=== PATIENT | female | born 1960 | race Caucasian/White ===

== ENCOUNTER → 2016-05-17 | Outpatient (CLI) | payer BC ==
[~2016-05-17] VITALS: Ht 165.1 cm; Wt 139.3 kg
[~2016-05-17] MED LIST: ALBU8.5H2 IH; ASP81TEC PO; ATEN25TA; ATOR10TA66 PO; ATRV10T PO; CALC-80 PO; CATHETER FLUSH 10 ML SYR IV PRN; CPR500T PO; CYCL10TA9 PO; DILT240C PO; ESTR1TAB24 PO; FEXO1TAB42 PO; FURO20TA4 PO; FURO40TA4 PO; GABA-486 PO; GABA-488 PO; IBP600T1 PO; LEVO500T69 PO; METF-380 PO; METF500T4 PO; METO100T5 PO; METO50TA7 PO; NALT1TAB PO; NAPR-689 PO; NS IV 1000 ML 1,000 ML IV ONE; ONDANSETRON 4 MG/2 ML (SDV) Z0FRAN IV NR; OXYC-12 PO; POTA99TA7 PO; PRED20TA PO; SULF1TAB38 PO; TRAM50TA2 PO; methylPREDNISolone 125 MG (Solu-MEDROL) VIAL IV NR
--- OUTSIDE RECORDS SUMMARY | 2016-05-17 10:36 | XMS REPORT | Continuity of Care Document ---
Author Author [facility] Organization [facility] Address Unknown Phone Unavailable Care Team Providers Care Nurse Assessor Name Role Phone Olimpia Romero PCP [phone] Source Comments Some departments are not documenting in the electronic medical record. If you do not see the information that you expected, contact Release of Information in the Health Information Management department at [phone] for further assistance in locating additional records.[facility] Active Allergies and Adverse Reactions No Known Allergies Current Medications Prescription Sig. Disp. Refills Start End Date Status Date furosemide (LASIX) 20 mg Take 20 mg by mouth as Active tablet Needed. penicillin V potassium Take 550 mg by mouth as Active (VEETID) 500 mg tablet Needed. atorvastatin (LIPITOR) 10 Take 10 mg by mouth Active mg tablet daily. metFORMIN (GLUCOPHAGE) Take 500 mg by mouth Active 500 mg tablet twice daily with meals. gabapentin (NEURONTIN) Take 300 mg by mouth Active 300 mg capsule daily. CYCLOBENZAPRINE HCL Take 10 mg by mouth. Active (FLEXERIL PO) FEXOFENADINE HCL (MIGUEL Take by mouth. Active PO) levofloxacin (LEVAQUIN) Take 500 mg by mouth as Active 500 mg tablet Needed. cholecalciferol (VITAMIN Take 1,000 Units by mouth Active D-3) 1,000 units tablet daily. cyclobenzaprine Take 10 mg by mouth three Active (FLEXERIL) 10 mg tablet times daily as needed for Muscle Cramps. Active Problems No known active problems Social History Tobacco Use Types Packs/Day Years Used Date Never Assessed Last Filed Vital Signs Vital Sign Reading Time Taken Blood Pressure 156/97 04/29/2015 12:10 PM [employer] Pulse 81 04/29/2015 12:10 PM [employer] Temperature 36.9 C (98.4 F) 04/29/2015 12:10 PM [employer] Respiratory Rate 16 04/29/2015 12:10 PM [employer] Height 1.651 m (5' 5") 04/29/2015 12:10 PM [employer] Weight 139.708 kg (308 lb) 04/29/2015 12:10 PM [employer] Body Mass Index 51.25 04/29/2015 12:10 PM [employer] Oxygen Saturation 96% 04/29/2015 12:10 PM [employer] Plan of Care Health Maintenance Due Date Last Done Comments Physical (Comprehensive) 1968 Exam Pertussis Vaccine 1972 Tetanus Vaccine 1978 Cervical Cancer Screening 1982 Breast Cancer Screening 2001 Colorectal Cancer 07/05/2011 Screening Influenza Vaccine 12/18/2015 Results from Last 3 Months Not on file
[2016-05-17 11:10] LABS: MEAN PLATELET VOLUME 9.5 FL (7.4-10.4); RED BLOOD COUNT 4.71 10^6/uL (4.35-5.85); RED CELL DISTRIBUTION WIDTH 16.1 % (10.0-14.5); WHITE BLOOD COUNT 6.2 10^3/uL (4.3-11.0)
[2016-05-17 11:20] VITALS: BP 130/58
[2016-05-17 11:33] LABS: ALANINE AMINOTRANSFERASE 29 U/L (0-55); ALBUMIN 3.8 G/DL (3.2-4.5); ANION GAP 10 MMOL/L (5-14); ASPARTATE AMINO TRANSFERASE 28 U/L (5-34); BILIRUBIN,TOTAL 0.2 MG/DL (0.1-1.0); BLOOD UREA NITROGEN 11 MG/DL (7-18); BUN/CREATININE RATIO 15; CALCIUM 8.4 MG/DL (8.5-10.1); CARBON DIOXIDE 25 MMOL/L (21-32); CHLORIDE 102 MMOL/L (98-107); CREATININE SERUM 0.71 MG/DL (0.60-1.30); GFR ESTIMATED > 60; GLUCOSE 133 MG/DL (70-105); SODIUM 137 MMOL/L (135-145); TOTAL PROTEIN 6.8 G/DL (6.4-8.2)
[2016-05-17 11:39] LABS: BILIRUBIN,URINE NEGATIVE (NEGATIVE); KETONES,URINE NEGATIVE (NEGATIVE); LEUKOCYTE ESTERASE ,URINE NEGATIVE (NEGATIVE); NITRITE,URINE NEGATIVE (NEGATIVE); PH,URINE 6 (5-9); PROTEIN,URINE NEGATIVE (NEGATIVE); SQUAMOUS EPITHELIAL CELL,UR TNTC /HPF; UROBILINOGEN,URINE NORMAL (NORMAL)
[2016-05-17 12:30] VITALS: BP 130/58
== END ==
LOC: SDC 10:32
PROVIDERS: ATTEND Nurse Practitioner Family
DX: E86.0 Dehydration (principal); R50.9 Fever, unspecified; R06.2 Wheezing
CPT/HCPCS: 36415; 80053; 81000; 85027; 96365; 96367; 96374

== ENCOUNTER → 2017-01-18 | Outpatient (CLI) | payer BC ==
[~2017-01-18] MED LIST changes: -CATHETER FLUSH 10 ML SYR IV PRN; -NS IV 1000 ML 1,000 ML IV ONE; -ONDANSETRON 4 MG/2 ML (SDV) Z0FRAN IV NR; -methylPREDNISolone 125 MG (Solu-MEDROL) VIAL IV NR
== END ==
LOC: RAD 10:19
PROVIDERS: ATTEND Obstetrics & Gynecology
DX: Z12.31 Encounter for screening mammogram for malignant neoplasm of breast (principal)
CPT/HCPCS: 77067

== ENCOUNTER 2018-03-29 05:38 | Outpatient (CLI) | payer BC ==
[~2018-03-29] VITALS: Ht 166.4 cm; Wt 142.0 kg
[~2018-03-29 05:38] MED LIST changes: +METF-397 PO; -METF500T4 PO
[2018-03-29] MEDS ORDERED: FURO20TA4 PO (13:08)
[2018-03-29] MEDS ORDERED: vitafusion PO (13:08)
[2018-03-29] MEDS ORDERED: POTA99TA21 PO (13:08)
[2018-03-29] MEDS ORDERED: CALC-857 PO (13:08)
[2018-03-29] MEDS ORDERED: UBID200C16 PO (13:13)
[2018-03-29] MEDS ORDERED: META800T PO (13:13)
[2018-03-29] MEDS ORDERED: METF500T8 PO (13:13)
[2018-03-29] MEDS ORDERED: FENO135C4 PO (13:13)
[2018-03-29] MEDS ORDERED: LOSA100T8 PO (13:13)
[2018-03-29] MEDS ORDERED: GABA-488 PO (13:13)
[2018-03-29] MEDS ORDERED: MELA1TAB27 PO (13:17)
== END 2018-03-29 13:18 | disposition home or self-care (01) ==
LOC: PREOP 05:38
PROVIDERS: ATTEND Internal Medicine Interventional Cardiology
DX: Z01.818 Encounter for other preprocedural examination (principal)

== ENCOUNTER 2018-04-03 06:51 | Day surgery (SDC) | payer BC ==
[~2018-04-03] VITALS: Ht 165.1 cm; Wt 143.8 kg
[2018-04-03] VITALS (17 sets, daily range): BP systolic 114–155; BP diastolic 51–95
[~2018-04-03 06:51] MED LIST changes: +CALC-857 PO; +FENO135C4 PO; +LOSA100T8 PO; +MELA1TAB27 PO; +META800T PO; +METF500T8 PO; +POTA99TA21 PO; +UBID200C16 PO; +vitafusion PO
[2018-04-03] MEDS ORDERED: NS IV 1000 ML 1,000 ML IV SCH (06:57)
[2018-04-03] MEDS ORDERED: ISOPROTERENOL 0.2 MG/100 ML D5W IV ONE (07:00)
[2018-04-03] MEDS ORDERED: CEPH-507 PO (07:15)
[2018-04-03] MEDS ORDERED: proPOfol 200 MG/20 ML (DIPRIVAN) VIAL IV ONE (07:15)
[2018-04-03] MEDS ORDERED: NAPR-1071 PO (07:15)
[2018-04-03] MEDS ORDERED: fentaNYL INJECTION 100 MCG/2 ML AMP ONE (07:16)
[2018-04-03] MEDS ORDERED: MIDAZOLAM 2 MG/2 ML (VERSED) VIAL ONE (07:16)
[2018-04-03] MEDS ORDERED: LIDOCAINE 2% 20 ML (XYLOCAINE) VIAL ONE (07:17)
[2018-04-03] MEDS ORDERED: ONDANSETRON 4 MG/2 ML (SDV) Z0FRAN ONE (07:17)
[2018-04-03] MEDS ORDERED: SUCCINYLCHOLINE INJ 100 MG/5 ML SYR ONE (07:17)
--- OUTSIDE RECORDS SUMMARY | 2018-04-03 07:22 | XMS REPORT | Clinical Summary ---
Author Author [facility] Organization [facility] Address Unknown Phone Unavailable Care Team Providers Care Jackscrew Man Name Role Phone Soledad Romero MD PCP Yobani Ashby MD Unavailable Unavailable Source Comments Some departments are not documenting in the electronic medical record. If you do not see the information that you expected, contact Release of Information in the Health Information Management department at [phone] for further assistance in locating additional records.[facility] Allergies No Known Allergies Medications End Date Status Medication Sig Dispensed Refills Start Date Active furosemide (LASIX) 20 mg Take 20 mg by 0 tablet mouth as Needed. Active penicillin V potassium Take 550 mg 0 (VEETID) 500 mg tablet by mouth as Needed. Active atorvastatin (LIPITOR) 10 Take 10 mg by 0 mg tablet mouth daily. Active metFORMIN (GLUCOPHAGE) Take 500 mg 0 500 mg tablet by mouth twice daily with meals. Active gabapentin (NEURONTIN) Take 300 mg 0 300 mg capsule by mouth daily. Active CYCLOBENZAPRINE HCL Take 10 mg by 0 (FLEXERIL PO) mouth. Active FEXOFENADINE HCL (MIGUEL Take by 0 PO) mouth. Active levofloxacin (LEVAQUIN) Take 500 mg 0 500 mg tablet by mouth as Needed. Active cholecalciferol (VITAMIN Take 1,000 0 D-3) 1,000 units tablet Units by mouth daily. Active cyclobenzaprine Take 10 mg by 0 (FLEXERIL) 10 mg tablet mouth three times daily as needed for Muscle Cramps. Active Problems No known active problems Social History Date Tobacco Use Types Packs/Day Years Used Never Assessed Sex Assigned at Date Recorded Not on file Industry Job Start Date Occupation Not on file Not on file Not on file Travel End Travel History Travel Start No recent travel history available. Last Filed Vital Signs Time Taken Vital Sign Reading 04/29/2015 12:10 PM [employer] Blood Pressure 156/97 04/29/2015 12:10 PM [employer] Pulse 81 04/29/2015 12:10 PM [employer] Temperature 36.9 C (98.4 F) 04/29/2015 12:10 PM [employer] Respiratory Rate 16 04/29/2015 12:10 PM [employer] Oxygen Saturation 96% - Inhaled Oxygen - Concentration 04/29/2015 12:10 PM [employer] Weight 139.7 kg (308 lb) 04/29/2015 12:10 PM [employer] Height 165.1 cm (5' 5") 04/29/2015 12:10 PM [employer] Body Mass Index 51.25 Plan of Treatment Health Maintenance Due Date Last Done Comments HEPATITIS C SCREENING 1961 PHYSICAL (COMPREHENSIVE) 1968 EXAM HIV SCREENING 1976 DTAP/TDAP VACCINES (1 - 07/05/1979 Tdap) CERVICAL CANCER SCREENING 07/05/1991 BREAST CANCER SCREENING 2001 COLORECTAL CANCER 07/05/2011 SCREENING SHINGLES RECOMBINANT 07/05/2011 VACCINE (1 of 2) INFLUENZA VACCINE 11/16/2017 Results Not on filefrom Last 3 Months Insurance Payer Benefit Subscriber ID Type Phone Address Plan / Group [facility] xxxxxxxxxxxx [facility] Advance Directives Patient has advance care planning documents on file. For more information, please contact: [facility] [address] [place] [address]
[2018-04-03] MEDS ORDERED: LORA10TA72 PO (07:25)
[2018-04-03] MEDS ORDERED: LEVO500T80 PO (07:25)
--- OUTSIDE RECORDS SUMMARY | 2018-04-03 07:25 | XMS REPORT | CCD ---
Author Author [facility] Organization [facility] Address [address] [place] [address] Phone Care Team Providers Care Industrial Relations Specialist Name Role Phone PP Unavailable CCM Unavailable Summary Purpose Interface Exchange Insurance Providers Payer name Policy type / Coverage type Covered libertarian ID Effective Begin Date Effective End Date Blue Cross Blue [facility] Blue Cross/Blue Shield [id number] Unknown Family history Father Diagnosis Age At Onset Stroke Unknown Osteoporosis Unknown Hypertension Unknown Hyperlipidemia Unknown Son Diagnosis Age At Onset defect Unknown Asthma Unknown Mother Diagnosis Age At Onset Stroke Unknown Hypertension Unknown Diabetes Unknown Osteoporosis Unknown Social History Social History Element Codes Description Effective Dates Marital status Unknown Alex 06/29/2016 Number of children Unknown 3 10/03/[address]: 23439492 Current every day smoker 10/03/2014 Number of years using tobacco Unknown 30 - 40 10/03/2014 Number of cigarettes/day Unknown 30 ( Pack and a half) 10/03/[address]: 596843934 Never drinks alcohol 10/03/2014 Allergies, Adverse Reactions, Alerts Substance Reaction Codes Entered Date Inactivated Date Status * OTHER REACTION - SEE ANSWER BOX Unknown 06/29/2016 No Inactive Date Active NO KNOWN DRUG ALLERGIES Unknown 10/03/2014 No Inactive Date Active Past Medical History Illness Codes Condition Status Onset Date Resolved Date Dysuria ICD-9: 788.1 ICD-10: R30.0 Active 12/24/2016 Unknown Essential (primary) hypertension ICD-9: 401.9 ICD-10: I10 Active 04/26/2016 Unknown Mixed hyperlipidemia ICD-9: 272.2 ICD-10: E78.2 Active 02/02/2018 Unknown Morbid (severe) obesity due to excess calories ICD-9: 278.01 ICD-10: E66.01 Active 04/26/2016 Unknown Muscle spasm of back ICD-9: 724.8 ICD-10: M62.830 Active 09/20/2017 Unknown Palpitations ICD-9: 785.1 ICD-10: R00.2 Active 01/24/2017 Unknown Type 2 diabetes mellitus with hyperglycemia ICD-9: 250.00 ICD-10: E11.65 Active 04/26/2016 Unknown Abscess of left lower eyelid ICD-9: 373.13 ICD-10: H00.035 Active 01/11/2018 Unknown Localized edema ICD-9 : 782.3 ICD-10: R60.0 Active 01/11/2018 Unknown Other insomnia ICD-9: 327.09 ICD-10: G47.09 Active 01/11/2018 Unknown Radiculopathy, cervicothoracic region ICD-9: 723.1 ICD-10: M54.13 Active 09/08/2015 Unknown Tobacco use ICD-9: 305.1 ICD-10: Z72.0 Active 09/08/2015 Unknown Dyshidrosis [pompholyx] ICD-9: 705.81 ICD-10: L30.1 Active 11/23/2016 Unknown Rash and other nonspecific skin eruption ICD-9: 782.1 ICD-10: R21 Active 09/08/2015 Unknown Acute laryngopharyngitis ICD-9: 465.0 ICD-10: J06.0 Active 03/17/2016 Unknown Myalgia ICD-9: 729.1 ICD-10: M79.1 Active 06/07/2016 Unknown Other allergic rhinitis ICD-9: 477.8 ICD-10: J30.89 Active 05/17/2016 Unknown Other acute sinusitis ICD-9: 461.8 ICD-10: J01.80 Active 05/17/2016 Unknown Other muscle spasm ICD -9: 728.85 ICD-10: M62.838 Active 04/26/2016 Unknown Cough ICD-9: 786.2 ICD-10: R05 Active 03/17/2016 Unknown Spinal stenosis, lumbar region ICD-9: 724.02 ICD-10: M48.06 Active 09/08/2015 Unknown Shortness of breath ICD-9: 786.05 ICD-10: R06.02 Active 09/03/2015 Unknown Wheezing ICD-9: 786.07 ICD-10: R06.2 Active 09/03/2015 Unknown Diabetes Unknown Active 12/31/2014 Unknown Hypertension Unknown Active 12/31/2014 Unknown Abdominal cramping ICD -9: 789.00 Active 12/30/2014 Unknown DIABETES TYPE II ICD-9 : 250.00 Active 12/30/2014 Unknown ESSENTIAL HYPERTENSION ICD-9: 401.9 Active 12/30/2014 Unknown Muscle spasms of neck ICD-9: 728.85 Active 12/30/2014 Unknown Neck pain ICD-9: 723.1 Active 12/30/2014 Unknown Routine medical exam ICD-9: V70.0 Active 10/02/2014 Unknown Problems Condition Codes Effective Dates Condition Status Dysuria ICD-9: 788.1 ICD-10: R30.0 12/24/2016 Active Essential (primary) hypertension ICD-9: 401.9 ICD-10: I10 04/26/2016 Active Mixed hyperlipidemia ICD-9: 272.2 ICD-10: E78.2 02/02/2018 Active Morbid (severe) obesity due to excess calories ICD-9: 278.01 ICD-10: E66.01 04/26/2016 Active Muscle spasm of back ICD-9: 724.8 ICD-10: M62.830 09/20/2017 Active Palpitations ICD-9: 785.1 ICD-10: R00.2 01/24/2017 Active Type 2 diabetes mellitus with hyperglycemia ICD-9: 250.00 ICD-10: E11.65 04/26/2016 Active Abscess of left lower eyelid ICD-9: 373.13 ICD-10: H00.035 01/11/2018 Active Localized edema ICD-9 : 782.3 ICD-10: R60.0 01/11/2018 Active Other insomnia ICD-9: 327.09 ICD-10: G47.09 01/11/2018 Active Radiculopathy, cervicothoracic region ICD-9: 723.1 ICD-10: M54.13 09/08/2015 Active Tobacco use ICD-9: 305.1 ICD-10: Z72.0 09/08/2015 Active Dyshidrosis [pompholyx] ICD-9: 705.81 ICD-10: L30.1 11/23/2016 Active Rash and other nonspecific skin eruption ICD-9: 782.1 ICD-10: R21 09/08/2015 Active Acute laryngopharyngitis ICD-9: 465.0 ICD-10: J06.0 03/17/2016 Active Myalgia ICD-9: 729.1 ICD-10: M79.1 06/07/2016 Active Other allergic rhinitis ICD-9: 477.8 ICD-10: J30.89 05/17/2016 Active Other acute sinusitis ICD-9: 461.8 ICD-10: J01.80 05/17/2016 Active Other muscle spasm ICD -9: 728.85 ICD-10: M62.838 04/26/2016 Active Cough ICD-9: 786.2 ICD-10: R05 03/17/2016 Active Spinal stenosis, lumbar region ICD-9: 724.02 ICD-10: M48.06 09/08/2015 Active Shortness of breath ICD-9: 786.05 ICD-10: R06.02 09/03/2015 Active Wheezing ICD-9: 786.07 ICD-10: R06.2 09/03/2015 Active Diabetes Unknown 12/31/2014 Active Hypertension Unknown 12/31/2014 Active Abdominal cramping ICD -9: 789.00 12/30/2014 Active DIABETES TYPE II ICD-9 : 250.00 12/30/2014 Active ESSENTIAL HYPERTENSION ICD-9: 401.9 12/30/2014 Active Muscle spasms of neck ICD-9: 728.85 12/30/2014 Active Neck pain ICD-9: 723.1 12/30/2014 Active Routine medical exam ICD-9: V70.0 10/02/2014 Active Medications Medication Codes Instructions Start Date Stop Date Status Fill Instructions Keflex 500 mg capsule RxNorm: 352224 1 Capsule(s) PO TID 201704/06/2018 Active Keflex 500 mg capsule RxNorm: 511820 1 Capsule(s) PO TID 201703/30/2018 Inactive metformin ER 500 mg tablet,extended release 24 hr RxNorm: 998692 4 Tablet(s) PO daily 02/02/2018 08/30/2018 Active Trilipix 135 mg capsule,delayed release RxNorm: 060656 1 Capsule(s) PO daily 02/02/2018 08/30/2018 Active losartan 100 mg tablet RxNorm: 941748 1 Tablet(s) PO daily TAKE 1 TABLET BY MOUTH DAILY 02/02/2018 07/31/2018 Active Skelaxin 800 mg tablet RxNorm: 500728 1 Tablet(s) PO TID 201706/01/2018 Active metformin ER 1,000 mg tablet,extended release 24hr RxNorm: 8547937 2 Tablet(s) PO daily 02/02/2018 02/01/2018 Inactive Levaquin 500 mg tablet RxNorm: 579807 1 Tablet(s) PO daily 01/19/2018 Inactive valacyclovir 1 gram tablet RxNorm: 911970 1 Tablet(s) PO TID 01/17/2018 Inactive furosemide 20 mg tablet RxNorm: 154516 TABLET(S) 1 TABLET(S) PO DAILY 12/08/2017 04/06/2018 Active losartan 50 mg tablet RxNorm: 532221 1 Tablet(s) PO daily TAKE 1 TABLET BY MOUTH DAILY 09/26/2017 02/01/2018 Inactive Skelaxin 800 mg tablet RxNorm: 298846 1 Tablet(s) PO TID 201710/19/2017 Inactive gabapentin 300 mg capsule RxNorm: 852687 1 Capsule(s) PO BID 10/15/2017 Inactive losartan 25 mg tablet RxNorm: 651578 TAKE 1 TABLET BY MOUTH DAILY 09/16/2017 09/25/2017 Inactive naproxen 500 mg tablet RxNorm: 713048 1 TABLET(S) PO BID 201711/21/2017 Inactive Tamiflu 75 mg capsule RxNorm: 121277 1 Capsule(s) PO BID 201706/26/2017 Inactive Levaquin 500 mg tablet RxNorm: 304956 1 Tablet(s) PO daily 03/201806/26/2017 Inactive Tamiflu 75 mg capsule RxNorm: 309597 1 Capsule(s) PO BID 201707/01/2017 Inactive Levaquin 500 mg tablet RxNorm: 082258 1 Tablet(s) PO daily 03/201807/03/2017 Inactive Keflex 500 mg capsule RxNorm: 498840 1 Capsule(s) PO TID 201612/30/2016 Inactive Keflex 500 mg capsule RxNorm: 619314 1 Capsule(s) PO TID 201612/23/2016 Inactive Trilipix 135 mg capsule,delayed release RxNorm: 381369 1 Capsule(s) PO daily 12/24/2016 03/23/2017 Inactive Trilipix 135 mg capsule,delayed release RxNorm: 823624 1 Capsule(s) PO daily 12/24/2016 12/23/2016 Inactive losartan 25 mg tablet RxNorm: 746078 2 Tablet(s) daily 201601/25/2017 Inactive metformin ER 1,000 mg tablet,extended release 24hr RxNorm: 3709244 1 Tablet(s) PO daily 12/13/2016 07/10/2017 Inactive furosemide 20 mg tablet RxNorm: 441004 TABLET(S) 1 TABLET(S) PO DAILY 12/03/2016 04/01/2017 Inactive triamcinolone acetonide 0.025 % topical cream RxNorm: 8244784 1 Application TOP BID 11/23/2016 No Stop Date Active losartan 25 mg tablet RxNorm: 784481 TAKE 1 TABLET BY MOUTH DAILY 11/09/2016 12/12/2016 Inactive metformin 500 mg tablet RxNorm: 530051 3 Tablet(s) PO UD 1 in the morning and two pills at night. 08/17/2016 12/12/2016 Inactive naproxen 500 mg tablet RxNorm: 038554 1 Tablet(s) PO BID 201611/29/2016 Inactive Keflex 500 mg capsule RxNorm: 689456 1 Capsule(s) PO BID 201606/16/2016 Inactive prednisone 10 mg tablet RxNorm: 828860 1 Tablet(s) PO UD 201611/18/2016 Inactive 6,5,4,3,2,1 albuterol sulfate 2.5 mg/3 mL (0.083 %) solution for nebulization RxNorm: 412682 3 Milliliter(s) INH Q4-6H as needed 05/19/2016 11/17/2016 Inactive Augmentin 500 mg-125 mg tablet RxNorm: 883419 1 Tablet(s) PO TID 05/17/2016 05/26/2016 Inactive hydrocodone 5 mg-acetaminophen 325 mg tablet RxNorm: 606525 Tablet(s) PO prescribed by ortho 04/19/2016 01/19/2017 Inactive furosemide 20 mg tablet RxNorm: 986736 Tablet(s) 1 TABLET(S) PO DAILY 03/24/2016 07/21/2016 Inactive metformin 500 mg tablet RxNorm: 833516 1 Tablet(s) PO BID 03/2407/21/2016 Inactive levofloxacin 500 mg tablet RxNorm: 483871 1 Tablet(s) PO daily 03/18/2016 05/03/2016 Inactive furosemide 20 mg tablet RxNorm: 976269 1 TABLET(S) PO DAILY 03/23/2016 Inactive Lipitor 10 mg tablet RxNorm: 005853 1 TABLET(S) PO QPM 201512/12/2016 Inactive betamethasone dipropionate 0.05 % topical cream RxNorm: 460939 1 Application TOP BID 09/09/2015 01/21/2017 Inactive prednisone 10 mg tablet RxNorm: 963750 Tablet(s) PO UD 201505/03/2016 Inactive 6,5,4,3,2,1 albuterol sulfate 2.5 mg/3 mL (0.083 %) solution for nebulization RxNorm: 792619 3 Milliliter(s) INH Q4-6H as needed 09/04/2015 05/18/2016 Inactive Kenalog 40 mg/mL suspension for injection RxNorm: 9980603 Milliliter(s) Inj 09/04/2015 09/04/2015 Inactive levofloxacin 500 mg tablet RxNorm: 337913 1 Tablet(s) PO daily 09/01/2015 03/17/2016 Inactive gabapentin 300 mg capsule RxNorm: 318226 1 Capsule(s) PO BID 09/15/2017 Inactive losartan 25 mg tablet RxNorm: 336716 1 Tablet(s) PO daily 201502/02/2016 Inactive Lipitor 10 mg tablet RxNorm: 834092 1 Tablet(s) PO QPM 201508/22/2015 Inactive furosemide 20 mg tablet RxNorm: 494692 1 Tablet(s) PO daily 04/201407/15/2015 Inactive metformin 500 mg tablet RxNorm: 868519 2 Tablet(s) PO BID 12/3104/29/2015 Inactive gabapentin 300 mg capsule RxNorm: 164425 1 Capsule(s) PO QHS 07/09/2015 Inactive Lipitor 10 mg tablet RxNorm: 809495 1 Tablet(s) PO QPM 201412/03/2014 Inactive metformin 500 mg tablet RxNorm: 577383 1/2 Tablet(s) PO QPM x1 week and then 1/2 tab bid x 1 week then 500mg 1 tab bid there after 12/04/2014 12/03/2014 Inactive metformin 500 mg tablet RxNorm: 077512 1/2 Tablet(s) PO QPM x1 week and then 1/2 tab bid x 1 week then 500mg 1 tab bid there after 12/04/2014 12/30/2014 Inactive Lipitor 10 mg tablet RxNorm: 054239 1 Tablet(s) PO QPM 201401/02/2015 Inactive ProAir HFA 90 mcg/actuation aerosol inhaler RxNorm: 5707250 INH as needed No Start Date Active coenzyme Q10 100 mg capsule RxNorm: 460211 1 Capsule(s) PO daily No Start Date Active Calcium RxNorm: 1 PO daily No Start Date Active melatonin 5 mg chewable tablet RxNorm: 8198058 2 Tablet(s) PO QHS No Start Date Active multivitamin with calcium carb and iron tablet RxNorm: 1 Tablet(s) PO daily No Start Date Active Shantelle-D 24 Hour oral RxNorm: 071522 oral No Start Date Active Refresh Dry Eye Therapy RxNorm: 083159 ophthalmic (eye) No Start Date Active gabapentin 300 mg capsule RxNorm: 129686 1 Capsule(s) PO daily No Start Date Active triamcinolone acetonide 0.025 % topical cream RxNorm: 6439855 1 Application TOP ordered by dermatolgy No Start Date Active naproxen 500 mg tablet RxNorm: 023061 1 Tablet(s) PO BID as needed No Start Date Active multivitamin capsule RxNorm: 1 Capsule(s) PO daily No Start Date Active amlodipine 5 mg tablet RxNorm: 127721 1 Tablet(s) PO daily No Start Date 12/12/2016 Inactive tramadol 50 mg tablet RxNorm: 144434 1 Tablet(s) PO Q4 PRN No Start Date 03/11/2015 Inactive naproxen 500 mg tablet RxNorm: 528792 1 Tablet(s) PO BID No Start Date 08/01/2016 Inactive clotrimazole-betamethasone 1 %-0.05 % topical cream RxNorm: 961567 1 Application TOP ordered by chief engineer waterworks No Start Date 01/17/2018 Inactive baclofen 10 mg tablet RxNorm: 762388 1 Tablet(s) PO TID as needed muscle spasms No Start Date 01/16/2018 Inactive furosemide 20 mg tablet RxNorm: 716624 1 Tablet(s) PO daily No Start Date 03/17/2015 Inactive cyclobenzaprine 10 mg tablet RxNorm: 862203 1 Tablet(s) PO Q8 PRN No Start Date 07/09/2015 Inactive levofloxacin 500 mg tablet RxNorm: 739942 1 Tablet(s) PO daily No Start Date 12/30/2014 Inactive gabapentin 100 mg capsule RxNorm: 662680 1 Capsule(s) PO TID No Start Date 12/30/2014 Inactive potassium gluconate 550 mg (90 mg) tablet RxNorm: 6383685 oral No Start Date 12/12/2016 Inactive Vesicare 5 mg tablet RxNorm: 941466 1 Tablet(s) PO daily prescribed by Dr. Rm No Start Date 01/16/2018 Inactive Medication Administered Medication Codes Instructions Start Date Status Kenalog 40 mg/mL suspension for injection RxNorm: 4355074 Milliliter 09/04/2015 No longer Active Immunizations No Immunization data Assessments Condition Codes Effective Dates Dysuria ICD-10: R30.0 ICD-9: 788.1 03/31/2018 Muscle spasm of back ICD-10: M62.830 ICD-9: 724.8 02/02/2018 Essential (primary) hypertension ICD-10: I10 ICD-9: 401.9 02/02/2018 Morbid (severe) obesity due to excess calories ICD-10: E66.01 ICD-9: 278.01 02/02/2018 Type 2 diabetes mellitus with hyperglycemia ICD-10: E11.65 ICD-9: 250.00 02/02/2018 Mixed hyperlipidemia ICD-10: E78.2 ICD-9: 272.2 02/02/2018 Palpitations ICD-10: R00.2 ICD-9: 785.1 02/02/2018 Abscess of left lower eyelid ICD-10: H00.035 ICD-9: 373.13 01/11/2018 Other insomnia ICD-10: G47.09 ICD-9: 327.09 01/11/2018 Localized edema ICD-10: R60.0 ICD-9: 782.3 01/11/2018 Radiculopathy, cervicothoracic region ICD-10: M54.13 ICD-9: 723.1 09/20/2017 Rash and other nonspecific skin eruption ICD-10: R21 ICD-9: 782.1 11/23/2016 Dyshidrosis [pompholyx] ICD-10: L30.1 ICD-9: 705.81 11/23/2016 Tobacco use ICD-10: Z72.0 ICD-9: 305.1 06/29/2016 Myalgia ICD-10: M79.1 ICD-9: 729.1 06/07/2016 Acute laryngopharyngitis ICD-10: J06.0 ICD-9: 465.0 06/07/2016 Other allergic rhinitis ICD-10: J30.89 ICD-9: 477.8 06/07/2016 Other acute sinusitis ICD-10: J01.80 ICD-9: 461.8 05/17/2016 Other muscle spasm ICD-10: M62.838 ICD-9: 728.85 04/27/2016 Cough ICD-10: R05 ICD-9: 786.2 03/18/2016 Spinal stenosis, lumbar region ICD-10: M48.06 ICD-9: 724.02 09/09/2015 Shortness of breath ICD-10: R06.02 ICD-9: 786.05 09/04/2015 Wheezing ICD-10: R06.2 ICD-9: 786.07 09/04/2015 DIABETES TYPE II ICD-9: 250.00 2014 ESSENTIAL HYPERTENSION ICD-9: 401.9 12/31 Neck pain ICD-9: 723.1 12/31/2014 Muscle spasms of neck ICD-9: 728.85 12/31 Abdominal cramping ICD-9: 789.00 2014 Routine medical exam ICD-9: V70.0 2014 Reason For Visit Reason For Visit Effective Dates Notes hypertension 02/02/2018 sores 01/11/2018 hypertension 09/20/2017 medication follow up 01/24/2017 hypertension 12/13/2016 skin lesion 11/23/2016 hypertension 08/17/2016 hypertension 06/29/2016 sinus congestion 06/07/2016 sinus congestion 05/17/2016 fatigue 04/27/2016 cough 03/18/2016 back pain 09/09/2015 cough 09/04/2015 back pain 07/08/2015 back pain 05/19/2015 back pain 03/31/2015 back pain 02/03/2015 back pain 12/31/2014 back pain 10/03/2014 Results Observation Observation Code Item Item Code Result Date Comp Metabolic Oxk680 NA 138 mEq/L 03/31/2018 Comp Metabolic Ocg710 K 4.2 mEq/L 03/31/2018 Comp Metabolic Pap090 CL 99 mEq/L 03/31/2018 Comp Metabolic Qbm756 CO2 30.0 mEq/L 03/31/2018 Comp Metabolic Zwm870 ANION GAP 13 03/31/2018 Comp Metabolic Gwr164 GLUCOSE 142 mg/dL 03/31/2018 Comp Metabolic Tkq108 Creat 0.6 mg/dL 03/31/2018 Comp Metabolic Pdv314 eGFR 119 ml/min/1.73m2 03/31/2018 Comp Metabolic Hvr078 BUN 12 mg/dL 03/31/2018 Comp Metabolic Iyi721 B/C Ratio 21.4 Ratio 03/31/2018 Comp Metabolic Ohc682 CALCIUM 9.3 mg/dL 03/31/2018 Comp Metabolic Azj627 ALK PHOS 123 U/L 03/31/2018 Comp Metabolic Qns519 AST(SGOT) 26 U/L 03/31/2018 Comp Metabolic Eav844 ALT(SGPT) 26 U/L 03/31/2018 Comp Metabolic Pkz875 BILI T 0.4 mg/dL 03/31/2018 Comp Metabolic Xrq914 ALBUMIN 3.9 g/dL 03/31/2018 Comp Metabolic Gnx875 TPRO 7.0 g/dL 03/31/2018 Comp Metabolic Snc741 GLOB 3.1 g/dL 03/31/2018 Comp Metabolic Wsp537 A/G Ratio 1.3 Ratio 03/31/2018 Comp Metabolic Eta602 Osmo 278 mOsmo 03/31/2018 Microalbumin Qax918 MicroAlb 6.2 mg/dL 03/31/2018 Cbc With Differential Ord2 WBC 11.64 K/ul 03/31/2018 Cbc With Differential Ord2 RBC 5.16 M/ul 03/31/2018 Cbc With Differential Ord2 HGB 15.0 g/dl 03/31/2018 Cbc With Differential Ord2 HCT 45.0 % 03/31/2018 Cbc With Differential Ord2 Neut% 60.2 % 03/31/2018 Cbc With Differential Ord2 MCV 87.2 fl 03/31/2018 Cbc With Differential Ord2 Lymph% 31.5 % 03/31/2018 Cbc With Differential Ord2 MCH 29.1 pg 03/31/2018 Cbc With Differential Ord2 Hill% 7.0 % 03/31/2018 Cbc With Differential Ord2 MCHC 33.3 pg 03/31/2018 Cbc With Differential Ord2 Eos% 1.1 % 03/31/2018 Cbc With Differential Ord2 Baso% 0.2 % 03/31/2018 Cbc With Differential Ord2 PLT 363 K/ul 03/31/2018 Cbc With Differential Ord2 RDW 15.0 % 03/31/2018 Cbc With Differential Ord2 Neut ABS# 7.01 K/ul 03/31/2018 Cbc With Differential Ord2 Lymph ABS# 3.67 K/ul 03/31/2018 Cbc With Differential Ord2 Hill ABS# 0.8 K/ul 03/31/2018 Cbc With Differential Ord2 Eos ABS# 0.1 K/ul 03/31/2018 Cbc With Differential Ord2 Baso ABS# 0.0 K/ul 03/31/2018 %Hba1C Weq909 % HbA1c 90771-0 7.9 % 03/31/2018 %Hba1C Alk769 Gluc Ave 180 mg/dL 03/31/2018 Lipid Ord30 CHOL 154 mg/dL 03/31/2018 Lipid Ord30 HDL 38.0 mg/dl 03/31/2018 Lipid Ord30 TRIG 199 mg/dL 03/31/2018 Lipid Ord30 LDL 76 mg/dL 03/31/2018 Lipid Ord30 C/HDL 4.1 Ratio 03/31/2018 Tsh Ord6 TSH (3rd IS) 1.80 uIU/mL 03/31/2018 Urinalysis Ord28 U-Color Yellow 03/31/2018 Urinalysis Ord28 U-Clarity Cloudy 03/31/2018 Urinalysis Ord28 U-Gluc Negative 03/31/2018 Urinalysis Ord28 U-Bili Negative 03/31/2018 Urinalysis Ord28 U-Ketone Negative 03/31/2018 Urinalysis Ord28 U-SG 1.015 03/31/2018 Urinalysis Ord28 U-Blood Small 03/31/2018 Urinalysis Ord28 U-pH 6.5 03/31/2018 Urinalysis Ord28 U-Protein Negative 03/31/2018 Urinalysis Ord28 U-Urobilin 0.2 E.U./dL E.U./dL 03/31/2018 Urinalysis Ord28 U-Nitrites Positive 03/31/2018 Urinalysis Ord28 U-Leuk Moderate 03/31/2018 Urinalysis Ord28 U-Bact 3+ 03/31/2018 Urinalysis Ord28 U-Squamous Epi 5-10 per/HPF 03/31/2018 Urinalysis Ord28 U-Crystal None per/HPF 03/31/2018 Urinalysis Ord28 U-Mucus None 03/31/2018 Urinalysis Ord28 U-Renal tubular epi None 03/31/2018 Urinalysis Ord28 U-RBC 5-10 per/HPF 03/31/2018 Urinalysis Ord28 U-Transitional epi None per/HPF 03/31/2018 Urinalysis Ord28 U-WBC 50-60 per/HPF 03/31/2018 Urinalysis Ord28 U-Cast None per/HPF 03/31/2018 Urinalysis Ord28 U-VOL VOLUME SUFFICIENT (10mL) 03/31/2018 Urinalysis Ord28 U-Com Culture to follow 03/31/2018 Urinalysis Ord28 U-Yeast NEGATIVE 03/31/2018 %Hba1C Tik009 % HbA1c 94531-3 7.8 % 12/14/2016 %Hba1C Nub365 Gluc Ave 177 mg/dL 12/14/2016 Microalbumin Lwz990 MicroAlb 2.4 mg/dL 12/14/2016 Lipid Ord30 CHOL 156 mg/dL 12/14/2016 Lipid Ord30 HDL 37.0 mg/dl 12/14/2016 Lipid Ord30 TRIG 257 mg/dL 12/14/2016 Lipid Ord30 LDL 68 mg/dL 12/14/2016 Lipid Ord30 C/HDL 4.2 Ratio 12/14/2016 Cbc With Differential Ord2 WBC 11.71 K/ul 12/14/2016 Cbc With Differential Ord2 RBC 4.87 M/ul 12/14/2016 Cbc With Differential Ord2 HGB 14.4 g/dl 12/14/2016 Cbc With Differential Ord2 Neut% 59.0 % 12/14/2016 Cbc With Differential Ord2 HCT 42.8 % 12/14/2016 Cbc With Differential Ord2 Lymph% 33.1 % 12/14/2016 Cbc With Differential Ord2 MCV 87.9 fl 12/14/2016 Cbc With Differential Ord2 MCH 29.6 pg 12/14/2016 Cbc With Differential Ord2 Hill% 6.5 % 12/14/2016 Cbc With Differential Ord2 MCHC 33.6 pg 12/14/2016 Cbc With Differential Ord2 Eos% 1.2 % 12/14/2016 Cbc With Differential Ord2 PLT 306 K/ul 12/14/2016 Cbc With Differential Ord2 Baso% 0.2 % 12/14/2016 Cbc With Differential Ord2 RDW 15.3 % 12/14/2016 Cbc With Differential Ord2 Neut ABS# 6.91 K/ul 12/14/2016 Cbc With Differential Ord2 Lymph ABS# 3.88 K/ul 12/14/2016 Cbc With Differential Ord2 Hill ABS# 0.8 K/ul 12/14/2016 Cbc With Differential Ord2 Eos ABS# 0.1 K/ul 12/14/2016 Cbc With Differential Ord2 Baso ABS# 0.0 K/ul 12/14/2016 Tsh Ord6 hTSH II 2.18 uIU/mL 12/14/2016 Comp Metabolic Glj026 NA 139 mEq/L 12/14/2016 Comp Metabolic Mhr012 K 4.2 mEq/L 12/14/2016 Comp Metabolic Ynl543 CL 102 mEq/L 12/14/2016 Comp Metabolic Ibx609 CO2 25.0 mEq/L 12/14/2016 Comp Metabolic Ajw701 ANION GAP 16 12/14/2016 Comp Metabolic Cvv611 GLUCOSE 150 mg/dL 12/14/2016 Comp Metabolic Sxp231 Creat 0.5 mg/dL 12/14/2016 Comp Metabolic Cjz837 eGFR 124 ml/min/1.73m2 12/14/2016 Comp Metabolic Qfs476 BUN 14 mg/dL 12/14/2016 Comp Metabolic Uvy551 B/C Ratio 25.9 Ratio 12/14/2016 Comp Metabolic Itx966 CALCIUM 9.2 mg/dL 12/14/2016 Comp Metabolic Lvy505 ALK PHOS 121 U/L 12/14/2016 Comp Metabolic Lkp804 AST(SGOT) 20 U/L 12/14/2016 Comp Metabolic Lxz901 ALT(SGPT) 22 U/L 12/14/2016 Comp Metabolic Rix062 BILI T 0.3 mg/dL 12/14/2016 Comp Metabolic Gsq490 ALBUMIN 3.9 g/dL 12/14/2016 Comp Metabolic Pho675 TPRO 6.8 g/dL 12/14/2016 Comp Metabolic Gop183 GLOB 2.9 g/dL 12/14/2016 Comp Metabolic Odm991 A/G Ratio 1.3 Ratio 12/14/2016 Comp Metabolic Tdn398 Osmo 281 mOsmo 12/14/2016 Sed Rate Ord21 ESR 9 mm/hr 04/28/2016 Cbc With Differential Ord2 WBC 11.44 K/ul 04/27/2016 Cbc With Differential Ord2 RBC 4.78 M/ul 04/27/2016 Cbc With Differential Ord2 HGB 13.9 g/dl 04/27/2016 Cbc With Differential Ord2 HCT 41.6 % 04/27/2016 Cbc With Differential Ord2 Neut% 58.9 % 04/27/2016 Cbc With Differential Ord2 MCV 87.0 fl 04/27/2016 Cbc With Differential Ord2 Lymph% 34.4 % 04/27/2016 Cbc With Differential Ord2 MCH 29.1 pg 04/27/2016 Cbc With Differential Ord2 Hill% 5.3 % 04/27/2016 Cbc With Differential Ord2 MCHC 33.4 pg 04/27/2016 Cbc With Differential Ord2 Eos% 1.2 % 04/27/2016 Cbc With Differential Ord2 PLT 301 K/ul 04/27/2016 Cbc With Differential Ord2 Baso% 0.2 % 04/27/2016 Cbc With Differential Ord2 RDW 16.4 % 04/27/2016 Cbc With Differential Ord2 Neut ABS# 6.74 K/ul 04/27/2016 Cbc With Differential Ord2 Lymph ABS# 3.93 K/ul 04/27/2016 Cbc With Differential Ord2 Hill ABS# 0.6 K/ul 04/27/2016 Cbc With Differential Ord2 Eos ABS# 0.1 K/ul 04/27/2016 Cbc With Differential Ord2 Baso ABS# 0.0 K/ul 04/27/2016 Tsh Ord6 hTSH II 1.82 uIU/mL 04/27/2016 Comp Metabolic Yuy801 NA 136 mEq/L 04/27/2016 Comp Metabolic Yap050 K 3.9 mEq/L 04/27/2016 Comp Metabolic Uhz043 CL 101 mEq/L 04/27/2016 Comp Metabolic Whj072 CO2 25.0 mEq/L 04/27/2016 Comp Metabolic Ylk866 ANION GAP 14 04/27/2016 Comp Metabolic Osl021 GLUCOSE 204 mg/dL 04/27/2016 Comp Metabolic Xpu242 Creat 0.6 mg/dL 04/27/2016 Comp Metabolic Wja853 eGFR 104 ml/min/1.73m2 04/27/2016 Comp Metabolic Hss953 BUN 13 mg/dL 04/27/2016 Comp Metabolic Xvc210 B/C Ratio 20.6 Ratio 04/27/2016 Comp Metabolic Zvt018 CALCIUM 9.0 mg/dL 04/27/2016 Comp Metabolic Fkw381 ALK PHOS 119 U/L 04/27/2016 Comp Metabolic Elc797 AST(SGOT) 13 U/L 04/27/2016 Comp Metabolic Wqx203 ALT(SGPT) 12 U/L 04/27/2016 Comp Metabolic Tez381 BILI T 0.3 mg/dL 04/27/2016 Comp Metabolic Rpz404 ALBUMIN 3.9 g/dL 04/27/2016 Comp Metabolic Gwz723 TPRO 6.8 g/dL 04/27/2016 Comp Metabolic Hjg121 GLOB 2.9 g/dL 04/27/2016 Comp Metabolic Hje955 A/G Ratio 1.3 Ratio 04/27/2016 Comp Metabolic Mpr122 Osmo 278 mOsmo 04/27/2016 %Hba1C Lbj188 % HbA1c 97635-8 7.7 % 04/27/2016 %Hba1C Ghp117 Gluc Ave 174 mg/dL 04/27/2016 %Hba1C Icg643 % HbA1c 68695-2 7.4 % 03/31/2015 %Hba1C Ghc724 Gluc Ave 166 mg/dL 03/31/2015 Folate Ord36 Folate 9.70 ng/mL 11/26/2014 Tsh Ord6 hTSH II 1.92 uIU/mL 11/26/2014 Cbc With Differential Ord2 WBC 8.2 K/uL 11/26/2014 Cbc With Differential Ord2 LYM 2.7 K/uL 11/26/2014 Cbc With Differential Ord2 LYM% 33.2 % 11/26/2014 Cbc With Differential Ord2 NEUT/GRAN 5.0 K/uL 11/26/2014 Cbc With Differential Ord2 NEUT/GRAN % 61.1 % 11/26/2014 Cbc With Differential Ord2 MID 0.5 K/uL 11/26/2014 Cbc With Differential Ord2 MID% 5.7 % 11/26/2014 Cbc With Differential Ord2 RBC 4.77 M/uL 11/26/2014 Cbc With Differential Ord2 HGB 14.3 g/dL 11/26/2014 Cbc With Differential Ord2 HCT 43.6 % 11/26/2014 Cbc With Differential Ord2 MCV 91 fL 11/26/2014 Cbc With Differential Ord2 MCH 30 pg 11/26/2014 Cbc With Differential Ord2 MCHC 33 g/dL 11/26/2014 Cbc With Differential Ord2 PLT 226 K/uL 11/26/2014 Cbc With Differential Ord2 RDW 15.7 % 11/26/2014 B12 Ius427 B12 332.00 pg/ml 11/26/2014 %Hba1C Pqh074 % HbA1c 73228-6 8.6 % 11/26/2014 %Hba1C Hph117 Gluc Ave 200 mg/dL 11/26/2014 Comp Metabolic Osv344 NA 135 mEq/L 11/26/2014 Comp Metabolic Ggs083 K 4.3 mEq/L 11/26/2014 Comp Metabolic Ilk998 CL 101 mEq/L 11/26/2014 Comp Metabolic Axi622 CO2 26.0 mEq/L 11/26/2014 Comp Metabolic Sqi022 ANION GAP 12 11/26/2014 Comp Metabolic Sdt915 GLUCOSE 163 mg/dL 11/26/2014 Comp Metabolic Yag248 Creat 0.6 mg/dL 11/26/2014 Comp Metabolic Idz333 eGFR 123 ml/min/1.73m2 11/26/2014 Comp Metabolic Vlv220 BUN 12 mg/dL 11/26/2014 Comp Metabolic Ouw353 B/C Ratio 21.8 Ratio 11/26/2014 Comp Metabolic Gxs542 CALCIUM 9.0 mg/dL 11/26/2014 Comp Metabolic Jfl582 ALK PHOS 120 U/L 11/26/2014 Comp Metabolic Dzk442 AST(SGOT) 64 U/L 11/26/2014 Comp Metabolic Rcz263 ALT(SGPT) 50 U/L 11/26/2014 Comp Metabolic Kpk578 BILI T 0.5 mg/dL 11/26/2014 Comp Metabolic Bzt536 ALBUMIN 3.8 g/dL 11/26/2014 Comp Metabolic Xkl590 TPRO 6.5 g/dL 11/26/2014 Comp Metabolic Bwy147 GLOB 2.7 g/dL 11/26/2014 Comp Metabolic Fdg790 A/G Ratio 1.4 Ratio 11/26/2014 Comp Metabolic Tem951 Osmo 273 mOsmo 11/26/2014 Lipid Ord30 CHOL 169 mg/dL 11/26/2014 Lipid Ord30 HDL 31.0 mg/dl 11/26/2014 Lipid Ord30 TRIG 302 mg/dL 11/26/2014 Lipid Ord30 LDL 78 mg/dL 11/26/2014 Lipid Ord30 C/HDL 5.5 Ratio 11/26/2014 Review of Systems System Result Effective Dates Constitutional fatigue 02/02/2018 Constitutional No fever 02/02/2018 Constitutional malaise 02/02/2018 Constitutional obesity 02/02/2018 Eyes No blindness 02/02/2018 Eyes No eye discharge 02/02/2018 Ears/Nose/Throat/Neck nasal allergies Ears/Nose/Throat/Neck nasal discharge Cardiovascular No chest pain/pressure Cardiovascular exercise intolerance 02/02 Cardiovascular fatigue 02/02/2018 Respiratory dyspnea on exertion 2017 Respiratory No dyspnea 02/02/2018 Gastrointestinal No abdominal pain 2017 Gastrointestinal No vomiting 02/02/2018 Musculoskeletal back pain 02/02/2018 Musculoskeletal myalgias 02/02/2018 Neurologic No alteration of consciousness 02/02/2018 Neurologic No mental status change 2017 Psychiatric No anxiety 02/02/2018 Psychiatric No depression 02/02/2018 Dermatologic No rash 02/02/2018 Dermatologic No sores 02/02/2018 Cardiovascular palpitations 02/02/2018 Constitutional No recent illness 2017 Constitutional No chills 01/11/2018 Constitutional No diaphoresis 01/11/2018 Constitutional No fever 01/11/2018 Eyes No eye erythema 01/11/2018 Eyes eyelid pain 01/11/2018 Ears/Nose/Throat/Neck nasal discharge Cardiovascular No chest pain/pressure Gastrointestinal No abdominal pain 2017 Musculoskeletal back pain 01/11/2018 Musculoskeletal joint complaint 2017 Musculoskeletal neck pain 01/11/2018 Dermatologic sores 01/11/2018 Neurologic No alteration of consciousness 01/11/2018 Neurologic No mental status change 2017 Respiratory cough 01/11/2018 Ears/Nose/Throat/Neck nasal allergies Ears/Nose/Throat/Neck postnasal drip Respiratory No chest congestion 2017 Constitutional fatigue 09/20/2017 Constitutional No fever 09/20/2017 Constitutional obesity 09/20/2017 Eyes No eye erythema 09/20/2017 Eyes No eye discharge 09/20/2017 Ears/Nose/Throat/Neck nasal allergies 08/2017 Cardiovascular No chest pain/pressure 08/2017 Cardiovascular exercise intolerance 09/20 Cardiovascular fatigue 09/20/2017 Respiratory dyspnea on exertion 2017 Respiratory No dyspnea 09/20/2017 Gastrointestinal No abdominal pain 2017 Gastrointestinal No vomiting 09/20/2017 Musculoskeletal back pain 09/20/2017 Musculoskeletal myalgias 09/20/2017 Dermatologic No rash 09/20/2017 Neurologic No alteration of consciousness 09/20/2017 Neurologic No mental status change 2017 Constitutional No chills 09/20/2017 Constitutional No diaphoresis 09/20/2017 Ears/Nose/Throat/Neck No nasal discharge 09/20/2017 Constitutional No recent illness 2016 Constitutional No chills 01/24/2017 Constitutional No diaphoresis 01/24/2017 Constitutional No fever 01/24/2017 Eyes No eye erythema 01/24/2017 Constitutional fatigue 01/24/2017 Constitutional malaise 01/24/2017 Constitutional obesity 01/24/2017 Eyes No eye discharge 01/24/2017 Ears/Nose/Throat/Neck nasal allergies 12/2016 Cardiovascular No chest pain/pressure 12/2016 Cardiovascular exercise intolerance 01/24 Cardiovascular fatigue 01/24/2017 Respiratory dyspnea on exertion 2016 Respiratory No dyspnea 01/24/2017 Gastrointestinal No abdominal pain 2016 Gastrointestinal No vomiting 01/24/2017 Musculoskeletal back pain 01/24/2017 Musculoskeletal myalgias 01/24/2017 Dermatologic No rash 01/24/2017 Neurologic No alteration of consciousness 01/24/2017 Neurologic No mental status change 2016 Psychiatric No anxiety 01/24/2017 Psychiatric No depression 01/24/2017 Respiratory cough 01/24/2017 Cardiovascular palpitations 01/24/2017 Constitutional obesity 12/13/2016 Constitutional fatigue 12/13/2016 Constitutional No fever 12/13/2016 Constitutional malaise 12/13/2016 Eyes No blindness 12/13/2016 Eyes No eye discharge 12/13/2016 Ears/Nose/Throat/Neck nasal allergies Cardiovascular No chest pain/pressure Cardiovascular exercise intolerance 12/13 Cardiovascular fatigue 12/13/2016 Respiratory dyspnea on exertion 2016 Respiratory No dyspnea 12/13/2016 Gastrointestinal No abdominal pain 2016 Gastrointestinal No vomiting 12/13/2016 Musculoskeletal back pain 12/13/2016 Musculoskeletal myalgias 12/13/2016 Neurologic No alteration of consciousness 12/13/2016 Neurologic No mental status change 2016 Psychiatric No anxiety 12/13/2016 Psychiatric No depression 12/13/2016 Dermatologic No rash 12/13/2016 Constitutional No recent illness 2016 Constitutional No chills 11/23/2016 Constitutional No diaphoresis 11/23/2016 Constitutional No fever 11/23/2016 Eyes No eye erythema 11/23/2016 Ears/Nose/Throat/Neck nasal allergies 11/2016 Ears/Nose/Throat/Neck No nasal discharge 11/23/2016 Cardiovascular No chest pain/pressure 11/2016 Respiratory No cough 11/23/2016 Dermatologic rash 11/23/2016 Neurologic No alteration of consciousness 11/23/2016 Neurologic No mental status change 2016 Constitutional obesity 08/17/2016 Constitutional fatigue 08/17/2016 Constitutional No fever 08/17/2016 Constitutional malaise 08/17/2016 Eyes No blindness 08/17/2016 Eyes No eye discharge 08/17/2016 Ears/Nose/Throat/Neck nasal allergies 05/2016 Ears/Nose/Throat/Neck nasal discharge 05/2016 Cardiovascular No chest pain/pressure 05/2016 Cardiovascular exercise intolerance 08/17 Cardiovascular fatigue 08/17/2016 Respiratory dyspnea on exertion 2016 Respiratory No dyspnea 08/17/2016 Gastrointestinal No abdominal pain 2016 Gastrointestinal No vomiting 08/17/2016 Musculoskeletal back pain 08/17/2016 Musculoskeletal myalgias 08/17/2016 Neurologic No alteration of consciousness 08/17/2016 Neurologic No mental status change 2016 Psychiatric No anxiety 08/17/2016 Psychiatric No depression 08/17/2016 Constitutional obesity 06/29/2016 Constitutional fatigue 06/29/2016 Constitutional No fever 06/29/2016 Constitutional malaise 06/29/2016 Eyes No blindness 06/29/2016 Eyes No eye discharge 06/29/2016 Ears/Nose/Throat/Neck nasal allergies Ears/Nose/Throat/Neck nasal discharge Cardiovascular No chest pain/pressure Cardiovascular exercise intolerance 06/29 Cardiovascular fatigue 06/29/2016 Respiratory dyspnea on exertion 2016 Respiratory No dyspnea 06/29/2016 Gastrointestinal No abdominal pain 2016 Gastrointestinal No vomiting 06/29/2016 Musculoskeletal back pain 06/29/2016 Musculoskeletal myalgias 06/29/2016 Neurologic No alteration of consciousness 06/29/2016 Neurologic No mental status change 2016 Constitutional recent illness 06/07/2016 Constitutional fever 06/07/2016 Eyes No eye erythema 06/07/2016 Ears/Nose/Throat/Neck nasal allergies Ears/Nose/Throat/Neck nasal discharge Ears/Nose/Throat/Neck otalgia 06/07/2016 Ears/Nose/Throat/Neck postnasal drip Ears/Nose/Throat/Neck sinus congestion Cardiovascular No chest pain/pressure Cardiovascular No dyspnea 06/07/2016 Respiratory cough 06/07/2016 Respiratory No dyspnea 06/07/2016 Gastrointestinal No abdominal pain 2016 Gastrointestinal No constipation 2016 Gastrointestinal No diarrhea 06/07/2016 Dermatologic No rash 06/07/2016 Neurologic No alteration of consciousness 06/07/2016 Neurologic No mental status change 2016 Musculoskeletal neck pain 06/07/2016 Constitutional recent illness 05/17/2016 Constitutional fever 05/17/2016 Eyes No eye erythema 05/17/2016 Ears/Nose/Throat/Neck nasal allergies Ears/Nose/Throat/Neck nasal discharge Ears/Nose/Throat/Neck postnasal drip Ears/Nose/Throat/Neck sinus congestion Cardiovascular No chest pain/pressure Cardiovascular No dyspnea 05/17/2016 Respiratory No chest congestion 2016 Respiratory cough 05/17/2016 Respiratory No dyspnea 05/17/2016 Gastrointestinal No abdominal pain 2016 Gastrointestinal No constipation 2016 Gastrointestinal No diarrhea 05/17/2016 Dermatologic No rash 05/17/2016 Neurologic No alteration of consciousness 05/17/2016 Neurologic No mental status change 2016 Ears/Nose/Throat/Neck otalgia 05/17/2016 Constitutional obesity 04/27/2016 Constitutional fatigue 04/27/2016 Constitutional No fever 04/27/2016 Eyes No eye erythema 04/27/2016 Eyes No eye discharge 04/27/2016 Ears/Nose/Throat/Neck nasal allergies 01/2017 Ears/Nose/Throat/Neck nasal discharge 01/2017 Cardiovascular No chest pain/pressure 01/2017 Respiratory dyspnea on exertion 2016 Respiratory No dyspnea 04/27/2016 Gastrointestinal No abdominal pain 2016 Gastrointestinal No vomiting 04/27/2016 Musculoskeletal back pain 04/27/2016 Neurologic No alteration of consciousness 04/27/2016 Neurologic No mental status change 2016 Constitutional malaise 04/27/2016 Cardiovascular fatigue 04/27/2016 Cardiovascular exercise intolerance 04/27 Musculoskeletal myalgias 04/27/2016 Constitutional obesity 03/18/2016 Constitutional No chills 03/18/2016 Constitutional fatigue 03/18/2016 Constitutional No fever 03/18/2016 Eyes No eye erythema 03/18/2016 Eyes No eye discharge 03/18/2016 Ears/Nose/Throat/Neck nasal allergies 04/2015 Ears/Nose/Throat/Neck nasal discharge 04/2015 Cardiovascular No chest pain/pressure 04/2015 Cardiovascular dyspnea 03/18/2016 Respiratory productive sputum 03/18/2016 Respiratory chest congestion 03/18/2016 Respiratory cough 03/18/2016 Respiratory dyspnea on exertion 2015 Respiratory No dyspnea 03/18/2016 Gastrointestinal No vomiting 03/18/2016 Musculoskeletal back pain 03/18/2016 Dermatologic No scar 03/18/2016 Neurologic No alteration of consciousness 03/18/2016 Neurologic No mental status change 2015 Gastrointestinal No abdominal pain 2015 Dermatologic erythema 03/18/2016 Constitutional No chills 09/09/2015 Constitutional fatigue 09/09/2015 Constitutional No fever 09/09/2015 Constitutional No insomnia 09/09/2015 Constitutional No malaise 09/09/2015 Constitutional obesity 09/09/2015 Eyes No eye erythema 09/09/2015 Eyes No eye discharge 09/09/2015 Ears/Nose/Throat/Neck No headache 2015 Ears/Nose/Throat/Neck nasal allergies Ears/Nose/Throat/Neck snoring 09/09/2015 Cardiovascular No chest pain/pressure Cardiovascular No dyspnea 09/09/2015 Respiratory No chest congestion 2015 Respiratory No cough 09/09/2015 Respiratory dyspnea on exertion 2015 Respiratory No dyspnea 09/09/2015 Gastrointestinal No abdominal pain 2015 Gastrointestinal No constipation 2015 Gastrointestinal No diarrhea 09/09/2015 Gastrointestinal No gastroesophageal reflux 09/09/2015 Gastrointestinal No nausea 09/09/2015 Gastrointestinal No vomiting 09/09/2015 Genitourinary/Nephrology No dysuria 09/08 Musculoskeletal No stiffness 09/09/2015 Musculoskeletal No swelling 09/09/2015 Musculoskeletal arthralgia(s) 09/09/2015 Musculoskeletal back pain 09/09/2015 Musculoskeletal No muscle weakness 2015 Musculoskeletal No myalgias 09/09/2015 Musculoskeletal neck pain 09/09/2015 Musculoskeletal shoulder pain 09/09/2015 Dermatologic sores 09/09/2015 Dermatologic No scar 09/09/2015 Constitutional recent illness 09/09/2015 Ears/Nose/Throat/Neck No nasal discharge 09/09/2015 Ears/Nose/Throat/Neck No sore throat Respiratory cigarette smoking 09/09/2015 Neurologic No alteration of consciousness 09/09/2015 Neurologic No mental status change 2015 Constitutional No chills 09/04/2015 Constitutional fatigue 09/04/2015 Constitutional No fever 09/04/2015 Constitutional No insomnia 09/04/2015 Constitutional No malaise 09/04/2015 Constitutional obesity 09/04/2015 Eyes No eye erythema 09/04/2015 Eyes No eye discharge 09/04/2015 Ears/Nose/Throat/Neck nasal allergies Cardiovascular No chest pain/pressure Cardiovascular dyspnea 09/04/2015 Respiratory chest congestion 09/04/2015 Respiratory cough 09/04/2015 Respiratory dyspnea on exertion 2015 Respiratory No dyspnea 09/04/2015 Gastrointestinal No constipation 2015 Gastrointestinal No diarrhea 09/04/2015 Gastrointestinal No nausea 09/04/2015 Gastrointestinal No vomiting 09/04/2015 Musculoskeletal back pain 09/04/2015 Dermatologic No scar 09/04/2015 Ears/Nose/Throat/Neck nasal discharge Respiratory productive sputum 09/04/2015 Dermatologic No rash 09/04/2015 Neurologic No alteration of consciousness 09/04/2015 Neurologic No mental status change 2015 Constitutional No recent illness 2015 Constitutional No chills 07/08/2015 Constitutional fatigue 07/08/2015 Constitutional No fever 07/08/2015 Constitutional No insomnia 07/08/2015 Constitutional No malaise 07/08/2015 Constitutional No weight loss 07/08/2015 Constitutional No weight gain 07/08/2015 Constitutional obesity 07/08/2015 Eyes No blindness 07/08/2015 Eyes No eye discharge 07/08/2015 Eyes No eye pain 07/08/2015 Eyes No glaucoma 07/08/2015 Eyes No macular degeneration 07/08/2015 Ears/Nose/Throat/Neck No headache 2015 Ears/Nose/Throat/Neck No hearing loss Ears/Nose/Throat/Neck No nasal allergies 07/08/2015 Ears/Nose/Throat/Neck No sore throat Ears/Nose/Throat/Neck snoring 07/08/2015 Ears/Nose/Throat/Neck No oral pain 2015 Cardiovascular No chest pain/pressure Cardiovascular No dyspnea 07/08/2015 Cardiovascular No edema 07/08/2015 Cardiovascular No exercise intolerance Cardiovascular No fatigue 07/08/2015 Cardiovascular No near-syncope/dizziness 07/08/2015 Respiratory No chest congestion 2015 Respiratory No chest tightness 2015 Respiratory cigarette smoking 07/08/2015 Respiratory No cough 07/08/2015 Respiratory dyspnea on exertion 2015 Respiratory No dyspnea 07/08/2015 Respiratory No pedal edema 07/08/2015 Gastrointestinal No abdominal pain 2015 Gastrointestinal No constipation 2015 Gastrointestinal No diarrhea 07/08/2015 Gastrointestinal No gastroesophageal reflux 07/08/2015 Gastrointestinal No nausea 07/08/2015 Gastrointestinal No vomiting 07/08/2015 Genitourinary/Nephrology No dysuria 07/07 Genitourinary/Nephrology No hematuria Genitourinary/Nephrology No nocturia Genitourinary/Nephrology No urinary incontinence 07/08/2015 Musculoskeletal No stiffness 07/08/2015 Musculoskeletal No swelling 07/08/2015 Musculoskeletal arthralgia(s) 07/08/2015 Musculoskeletal back pain 07/08/2015 Musculoskeletal No muscle weakness 2015 Musculoskeletal No myalgias 07/08/2015 Musculoskeletal neck pain 07/08/2015 Musculoskeletal shoulder pain 07/08/2015 Dermatologic No sores 07/08/2015 Dermatologic No scar 07/08/2015 Neurologic No dizziness 07/08/2015 Neurologic No headache 07/08/2015 Neurologic No hearing loss 07/08/2015 Neurologic No memory loss 07/08/2015 Neurologic No neck pain 07/08/2015 Neurologic paresthesia 07/08/2015 Neurologic No seizure 07/08/2015 Neurologic No syncope 07/08/2015 Psychiatric No anxiety 07/08/2015 Psychiatric disturbances of emotion 07/07 Constitutional No recent illness 2015 Constitutional No chills 05/19/2015 Constitutional fatigue 05/19/2015 Constitutional No fever 05/19/2015 Constitutional No insomnia 05/19/2015 Constitutional No malaise 05/19/2015 Constitutional No weight loss 05/19/2015 Constitutional No weight gain 05/19/2015 Constitutional obesity 05/19/2015 Eyes No blindness 05/19/2015 Eyes No eye discharge 05/19/2015 Eyes No eye pain 05/19/2015 Eyes No glaucoma 05/19/2015 Eyes No macular degeneration 05/19/2015 Ears/Nose/Throat/Neck No headache 2015 Ears/Nose/Throat/Neck No hearing loss 04/2015 Ears/Nose/Throat/Neck No nasal allergies 05/19/2015 Ears/Nose/Throat/Neck No sore throat 04/2015 Ears/Nose/Throat/Neck snoring 05/19/2015 Ears/Nose/Throat/Neck No oral pain 2015 Cardiovascular No chest pain/pressure 04/2015 Cardiovascular No dyspnea 05/19/2015 Cardiovascular No edema 05/19/2015 Cardiovascular No exercise intolerance Cardiovascular No fatigue 05/19/2015 Cardiovascular No near-syncope/dizziness 05/19/2015 Respiratory No chest congestion 2015 Respiratory No chest tightness 2015 Respiratory cigarette smoking 05/19/2015 Respiratory No cough 05/19/2015 Respiratory dyspnea on exertion 2015 Respiratory No dyspnea 05/19/2015 Respiratory No pedal edema 05/19/2015 Gastrointestinal No abdominal pain 2015 Gastrointestinal No constipation 2015 Gastrointestinal No diarrhea 05/19/2015 Gastrointestinal No gastroesophageal reflux 05/19/2015 Gastrointestinal No nausea 05/19/2015 Gastrointestinal No vomiting 05/19/2015 Genitourinary/Nephrology No dysuria 05/19 Genitourinary/Nephrology No hematuria 04/2015 Genitourinary/Nephrology No nocturia 04/2015 Genitourinary/Nephrology No urinary incontinence 05/19/2015 Musculoskeletal No stiffness 05/19/2015 Musculoskeletal No swelling 05/19/2015 Musculoskeletal arthralgia(s) 05/19/2015 Musculoskeletal back pain 05/19/2015 Musculoskeletal No muscle weakness 2015 Musculoskeletal No myalgias 05/19/2015 Musculoskeletal neck pain 05/19/2015 Musculoskeletal shoulder pain 05/19/2015 Dermatologic No sores 05/19/2015 Dermatologic No scar 05/19/2015 Neurologic No dizziness 05/19/2015 Neurologic No headache 05/19/2015 Neurologic No hearing loss 05/19/2015 Neurologic No memory loss 05/19/2015 Neurologic No neck pain 05/19/2015 Neurologic paresthesia 05/19/2015 Neurologic No seizure 05/19/2015 Neurologic No syncope 05/19/2015 Psychiatric No anxiety 05/19/2015 Psychiatric disturbances of emotion 05/19 Constitutional No recent illness 2014 Constitutional No chills 03/31/2015 Constitutional fatigue 03/31/2015 Constitutional No fever 03/31/2015 Constitutional No insomnia 03/31/2015 Constitutional No malaise 03/31/2015 Constitutional No weight loss 03/31/2015 Constitutional No weight gain 03/31/2015 Constitutional obesity 03/31/2015 Eyes No blindness 03/31/2015 Eyes No eye discharge 03/31/2015 Eyes No eye pain 03/31/2015 Eyes No glaucoma 03/31/2015 Eyes No macular degeneration 03/31/2015 Ears/Nose/Throat/Neck No headache 2014 Ears/Nose/Throat/Neck No hearing loss Ears/Nose/Throat/Neck No nasal allergies 03/31/2015 Ears/Nose/Throat/Neck No sore throat Ears/Nose/Throat/Neck snoring 03/31/2015 Ears/Nose/Throat/Neck No oral pain 2014 Cardiovascular No chest pain/pressure Cardiovascular No dyspnea 03/31/2015 Cardiovascular No edema 03/31/2015 Cardiovascular No exercise intolerance Cardiovascular No fatigue 03/31/2015 Cardiovascular No near-syncope/dizziness 03/31/2015 Respiratory No chest congestion 2014 Respiratory No chest tightness 2014 Respiratory cigarette smoking 03/31/2015 Respiratory No cough 03/31/2015 Respiratory dyspnea on exertion 2014 Respiratory No dyspnea 03/31/2015 Respiratory No pedal edema 03/31/2015 Gastrointestinal No abdominal pain 2014 Gastrointestinal No constipation 2014 Gastrointestinal No diarrhea 03/31/2015 Gastrointestinal gas and bloating 2014 Gastrointestinal No gastroesophageal reflux 03/31/2015 Gastrointestinal No nausea 03/31/2015 Gastrointestinal No vomiting 03/31/2015 Genitourinary/Nephrology No dysuria 03/31 Genitourinary/Nephrology No hematuria Genitourinary/Nephrology No nocturia Genitourinary/Nephrology No urinary incontinence 03/31/2015 Musculoskeletal No stiffness 03/31/2015 Musculoskeletal No swelling 03/31/2015 Musculoskeletal arthralgia(s) 03/31/2015 Musculoskeletal back pain 03/31/2015 Musculoskeletal No muscle weakness 2014 Musculoskeletal No myalgias 03/31/2015 Musculoskeletal neck pain 03/31/2015 Musculoskeletal shoulder pain 03/31/2015 Dermatologic No rash 03/31/2015 Dermatologic No sores 03/31/2015 Dermatologic No scar 03/31/2015 Neurologic No dizziness 03/31/2015 Neurologic No headache 03/31/2015 Neurologic No hearing loss 03/31/2015 Neurologic No memory loss 03/31/2015 Neurologic No neck pain 03/31/2015 Neurologic paresthesia 03/31/2015 Neurologic No seizure 03/31/2015 Neurologic No syncope 03/31/2015 Psychiatric No anxiety 03/31/2015 Psychiatric No depression 03/31/2015 Psychiatric disturbances of emotion 03/31 Constitutional No recent illness 2014 Constitutional No chills 02/03/2015 Constitutional fatigue 02/03/2015 Constitutional No fever 02/03/2015 Constitutional No insomnia 02/03/2015 Constitutional No malaise 02/03/2015 Eyes No blindness 02/03/2015 Eyes No eye discharge 02/03/2015 Eyes No eye pain 02/03/2015 Eyes No glaucoma 02/03/2015 Eyes No macular degeneration 02/03/2015 Ears/Nose/Throat/Neck No headache 2014 Ears/Nose/Throat/Neck No hearing loss Ears/Nose/Throat/Neck No nasal allergies 02/03/2015 Ears/Nose/Throat/Neck No sore throat Ears/Nose/Throat/Neck snoring 02/03/2015 Ears/Nose/Throat/Neck No oral pain 2014 Cardiovascular No chest pain/pressure Cardiovascular No dyspnea 02/03/2015 Cardiovascular No edema 02/03/2015 Cardiovascular No exercise intolerance Cardiovascular No fatigue 02/03/2015 Cardiovascular No near-syncope/dizziness 02/03/2015 Respiratory No chest congestion 2014 Respiratory No chest tightness 2014 Respiratory cigarette smoking 02/03/2015 Respiratory No cough 02/03/2015 Respiratory dyspnea on exertion 2014 Respiratory No dyspnea 02/03/2015 Respiratory No pedal edema 02/03/2015 Gastrointestinal No abdominal pain 2014 Gastrointestinal No constipation 2014 Gastrointestinal No diarrhea 02/03/2015 Gastrointestinal gas and bloating 2014 Gastrointestinal No gastroesophageal reflux 02/03/2015 Gastrointestinal No nausea 02/03/2015 Gastrointestinal No vomiting 02/03/2015 Genitourinary/Nephrology No dysuria 02/03 Genitourinary/Nephrology No hematuria Genitourinary/Nephrology No nocturia Genitourinary/Nephrology No urinary incontinence 02/03/2015 Musculoskeletal No stiffness 02/03/2015 Musculoskeletal No swelling 02/03/2015 Musculoskeletal arthralgia(s) 02/03/2015 Musculoskeletal back pain 02/03/2015 Musculoskeletal No muscle weakness 2014 Musculoskeletal No myalgias 02/03/2015 Musculoskeletal neck pain 02/03/2015 Musculoskeletal shoulder pain 02/03/2015 Dermatologic No rash 02/03/2015 Dermatologic No sores 02/03/2015 Dermatologic No scar 02/03/2015 Neurologic No dizziness 02/03/2015 Neurologic No headache 02/03/2015 Neurologic No hearing loss 02/03/2015 Neurologic No memory loss 02/03/2015 Neurologic No neck pain 02/03/2015 Neurologic paresthesia 02/03/2015 Neurologic No seizure 02/03/2015 Neurologic No syncope 02/03/2015 Psychiatric No anxiety 02/03/2015 Psychiatric No depression 02/03/2015 Psychiatric disturbances of emotion 02/03 Constitutional weight gain 02/03/2015 Constitutional obesity 02/03/2015 Constitutional No recent illness 2014 Constitutional No chills 12/31/2014 Constitutional fatigue 12/31/2014 Constitutional No fever 12/31/2014 Constitutional No insomnia 12/31/2014 Constitutional No malaise 12/31/2014 Constitutional No weight loss 12/31/2014 Constitutional No weight gain 12/31/2014 Constitutional obesity 12/31/2014 Eyes No blindness 12/31/2014 Eyes No eye discharge 12/31/2014 Eyes No eye pain 12/31/2014 Eyes No glaucoma 12/31/2014 Eyes No macular degeneration 12/31/2014 Ears/Nose/Throat/Neck No headache 2014 Ears/Nose/Throat/Neck No hearing loss Ears/Nose/Throat/Neck No nasal allergies 12/31/2014 Ears/Nose/Throat/Neck No oral pain 2014 Ears/Nose/Throat/Neck snoring 12/31/2014 Ears/Nose/Throat/Neck No sore throat Cardiovascular No chest pain/pressure Cardiovascular No dyspnea 12/31/2014 Cardiovascular No edema 12/31/2014 Cardiovascular No exercise intolerance Cardiovascular No fatigue 12/31/2014 Cardiovascular No near-syncope/dizziness 12/31/2014 Respiratory No chest congestion 2014 Respiratory No chest tightness 2014 Respiratory cigarette smoking 12/31/2014 Respiratory No cough 12/31/2014 Respiratory dyspnea on exertion 2014 Respiratory No dyspnea 12/31/2014 Respiratory No pedal edema 12/31/2014 Gastrointestinal No abdominal pain 2014 Gastrointestinal No constipation 2014 Gastrointestinal No diarrhea 12/31/2014 Gastrointestinal gas and bloating 2014 Gastrointestinal No gastroesophageal reflux 12/31/2014 Gastrointestinal No nausea 12/31/2014 Gastrointestinal No vomiting 12/31/2014 Genitourinary/Nephrology No dysuria 12/31 Genitourinary/Nephrology No hematuria Genitourinary/Nephrology No nocturia Genitourinary/Nephrology No urinary incontinence 12/31/2014 Musculoskeletal No stiffness 12/31/2014 Musculoskeletal No swelling 12/31/2014 Musculoskeletal arthralgia(s) 12/31/2014 Musculoskeletal back pain 12/31/2014 Musculoskeletal No muscle weakness 2014 Musculoskeletal No myalgias 12/31/2014 Musculoskeletal neck pain 12/31/2014 Musculoskeletal shoulder pain 12/31/2014 Dermatologic No rash 12/31/2014 Dermatologic No sores 12/31/2014 Dermatologic No scar 12/31/2014 Neurologic No dizziness 12/31/2014 Neurologic No headache 12/31/2014 Neurologic No hearing loss 12/31/2014 Neurologic No memory loss 12/31/2014 Neurologic No neck pain 12/31/2014 Neurologic paresthesia 12/31/2014 Neurologic No seizure 12/31/2014 Neurologic No syncope 12/31/2014 Psychiatric No anxiety 12/31/2014 Psychiatric No depression 12/31/2014 Psychiatric disturbances of emotion 12/31 Constitutional No fever 10/03/2014 Constitutional night sweats 10/03/2014 Constitutional No chills 10/03/2014 Constitutional No weight loss 10/03/2014 Constitutional No weight gain 10/03/2014 Constitutional obesity 10/03/2014 Constitutional No insomnia 10/03/2014 Eyes No vision change 10/03/2014 Eyes cataract 10/03/2014 Eyes No glaucoma 10/03/2014 Eyes No macular degeneration 10/03/2014 Eyes No eye pain 10/03/2014 Eyes No eye discharge 10/03/2014 Eyes No blindness 10/03/2014 Ears/Nose/Throat/Neck No facial weakness 10/03/2014 Ears/Nose/Throat/Neck No facial swelling 10/03/2014 Ears/Nose/Throat/Neck No dizziness 2014 Ears/Nose/Throat/Neck No headache 2014 Ears/Nose/Throat/Neck No nasal allergies 10/03/2014 Ears/Nose/Throat/Neck nasal discharge Ears/Nose/Throat/Neck No sore throat Ears/Nose/Throat/Neck No sinus congestion 10/03/2014 Ears/Nose/Throat/Neck No scar of head or neck 10/03/2014 Ears/Nose/Throat/Neck No postnasal drip 10/03/2014 Ears/Nose/Throat/Neck No otorrhea 2014 Ears/Nose/Throat/Neck No otitis media Ears/Nose/Throat/Neck No oral pain 2014 Ears/Nose/Throat/Neck No otalgia 2014 Cardiovascular No dyspnea 10/03/2014 Cardiovascular No edema 10/03/2014 Cardiovascular No chest pain/pressure Respiratory cigarette smoking 10/03/2014 Respiratory No cough 10/03/2014 Ears/Nose/Throat/Neck snoring 10/03/2014 Respiratory No chest tightness 2014 Respiratory No chest congestion 2014 Respiratory dyspnea on exertion 2014 Gastrointestinal No constipation 2014 Gastrointestinal No diarrhea 10/03/2014 Gastrointestinal gas and bloating 2014 Gastrointestinal No nausea 10/03/2014 Gastrointestinal No vomiting 10/03/2014 Gastrointestinal No abdominal pain 2014 Genitourinary/Nephrology No nocturia Genitourinary/Nephrology No hematuria Genitourinary/Nephrology No dysuria 10/03 Musculoskeletal back pain 10/03/2014 Musculoskeletal arthralgia(s) 10/03/2014 Musculoskeletal No muscle weakness 2014 Musculoskeletal neck pain 10/03/2014 Musculoskeletal shoulder pain 10/03/2014 Dermatologic No rash 10/03/2014 Dermatologic No sores 10/03/2014 Neurologic No hearing loss 10/03/2014 Neurologic No memory loss 10/03/2014 Neurologic No seizure 10/03/2014 Neurologic paresthesia 10/03/2014 Psychiatric No anxiety 10/03/2014 Psychiatric No depression 10/03/2014 Psychiatric disturbances of emotion 10/03 Constitutional No recent illness 2014 Constitutional fatigue 10/03/2014 Constitutional No malaise 10/03/2014 Ears/Nose/Throat/Neck No dental pain Ears/Nose/Throat/Neck No dysphagia 2014 Ears/Nose/Throat/Neck No hearing loss Cardiovascular No exercise intolerance Cardiovascular No fatigue 10/03/2014 Cardiovascular No near-syncope/dizziness 10/03/2014 Respiratory No dyspnea 10/03/2014 Respiratory No pedal edema 10/03/2014 Gastrointestinal No gastroesophageal reflux 10/03/2014 Genitourinary/Nephrology No urinary incontinence 10/03/2014 Musculoskeletal No stiffness 10/03/2014 Musculoskeletal No swelling 10/03/2014 Musculoskeletal No myalgias 10/03/2014 Dermatologic No scar 10/03/2014 Neurologic No dizziness 10/03/2014 Neurologic No headache 10/03/2014 Neurologic No neck pain 10/03/2014 Neurologic No syncope 10/03/2014 Physical Exam Exam Name System Name Item Name Status Result Effective Dates Notes Full Exam - General 1994 Constitutional general appearance Overall: well developed 02/02/2018 None Full Exam - General 1994 Constitutional general appearance Overall: in no acute distress 02/02/2018 None Full Exam - General 1994 Constitutional general appearance Overall: well nourished 02/02/2018 None Full Exam - General 1994 Constitutional general appearance Hygiene/Attention to Grooming: good hygiene 02/02/2018 None Full Exam - General 1994 Eyes conjunctiva /eyelids Overall: conjunctiva clear 02/02/2018 None Full Exam - General 1994 Eyes conjunctiva /eyelids Overall: eyelids normal 02/02/2018 None Full Exam - General 1994 Ears/Nose/Throat lips/teeth/gingiva Overall: benign lips 02/02/2018 None Full Exam - General 1994 Ears/Nose/Throat oral cavity/pharynx/larynx Overall: oral mucosa clear 02/02/2018 None Full Exam - General 1994 Respiratory respiratory effort/rhythm Overall: no retractions 02/02/2018 None Full Exam - General 1994 Respiratory respiratory effort/rhythm Overall: normal rate 02/02/2018 None Full Exam - General 1994 Cardiovascular extremities Overall: no clubbing 02/02/2018 None Full Exam - General 1994 Musculoskeletal spine, ribs and pelvis Overall: good posture 02/02/2018 None Full Exam - General 1994 Musculoskeletal head and neck Overall: head atraumatic 02/02/2018 None Full Exam - General 1994 Neurologic cranial nerves Overall: crainial nerves 2 - 12 grossly intact 02/02/2018 None Full Exam - General 1994 Psychiatric orientation/consciousness Overall: oriented to person, place and time 02/02/2018 None Full Exam - General 1994 Psychiatric mood and affect Overall: normal mood and affect 02/02/2018 None Full Exam - General 1994 Psychiatric appearance Overall: well-groomed, good eye contact 02/02/2018 None Full Exam - General 1994 Abdomen abdominal exam Overall: no tenderness 02/02/2018 None Full Exam - General 1994 Abdomen abdominal exam Overall: normal bowel sounds 02/02/2018 None Full Exam - General 1994 Lymphatic neck nodes Overall: anterior cervical chain benign 02/02/2018 None Full Exam - General 1994 Lymphatic neck nodes Overall: posterior cervical chain benign 02/02/2018 None Full Exam - General 1994 Constitutional general appearance Overall: well developed 01/11/2018 None Full Exam - General 1994 Constitutional general appearance Overall: in no acute distress 01/11/2018 None Full Exam - General 1994 Constitutional general appearance Overall: well nourished 01/11/2018 None Full Exam - General 1994 Eyes conjunctiva /eyelids Overall: conjunctiva clear 01/11/2018 None Full Exam - General 1994 Eyes conjunctiva /eyelids Overall: cornea clear 01/11/2018 None Full Exam - General 1994 Eyes pupils and irises Overall: pupils equal, round, reactive to light and accomodation 01/11/2018 None Full Exam - General 1994 Ears/Nose/Throat lips/teeth/gingiva Overall: benign lips 01/11/2018 None Full Exam - General 1994 Ears/Nose/Throat oral cavity/pharynx/larynx Overall: oral mucosa clear 01/11/2018 None Full Exam - General 1994 Ears/Nose/Throat oral cavity/pharynx/larynx Posterior Pharynx: clear post nasal drainage 01/11/2018 None Full Exam - General 1994 Respiratory respiratory effort/rhythm Overall: no retractions 01/11/2018 None Full Exam - General 1994 Respiratory respiratory effort/rhythm Overall: normal rate 01/11/2018 None Full Exam - General 1994 Respiratory auscultation Diffuse: diminished 01/11/2018 None Full Exam - General 1994 Cardiovascular auscultation of heart Overall: normal heart sounds 01/11/2018 None Full Exam - General 1994 Cardiovascular auscultation of heart Overall: regular rate 01/11/2018 None Full Exam - General 1994 Abdomen abdominal exam Overall: normal bowel sounds 01/11/2018 None Full Exam - General 1994 Musculoskeletal head and neck Overall: head atraumatic 01/11/2018 None Full Exam - General 1994 Musculoskeletal head and neck Cervical Spine: tender 01/11/2018 None Full Exam - General 1994 Neurologic cranial nerves Overall: crainial nerves 2 - 12 grossly intact 01/11/2018 None Full Exam - General 1994 Psychiatric orientation/consciousness Overall: oriented to person, place and time 01/11/2018 None Full Exam - General 1994 Psychiatric mood and affect Overall: normal mood and affect 01/11/2018 None Full Exam - General 1994 Integument inspection of skin Location: face 01/11/2018 left inner, lower eyelid Full Exam - General 1994 Integument inspection of skin Rash/Lesions: vesicle 01/11/2018 None Full Exam - General 1994 Integument inspection of skin Pigmentation: erythematous 01/11/2018 None Full Exam - General 1994 Eyes conjunctiva /eyelids Eyelid: discharge 01/11/2018 None Full Exam - General 1994 Constitutional general appearance Overall: well developed 09/20/2017 None Full Exam - General 1994 Constitutional general appearance Overall: in no acute distress 09/20/2017 None Full Exam - General 1994 Constitutional general appearance Overall: well nourished 09/20/2017 None Full Exam - General 1994 Constitutional general appearance Hygiene/Attention to Grooming: good hygiene 09/20/2017 None Full Exam - General 1994 Eyes conjunctiva /eyelids Overall: conjunctiva clear 09/20/2017 None Full Exam - General 1994 Eyes conjunctiva /eyelids Overall: eyelids normal 09/20/2017 None Full Exam - General 1994 Ears/Nose/Throat lips/teeth/gingiva Overall: benign lips 09/20/2017 None Full Exam - General 1994 Ears/Nose/Throat oral cavity/pharynx/larynx Overall: oral mucosa clear 09/20/2017 None Full Exam - General 1994 Respiratory respiratory effort/rhythm Overall: no retractions 09/20/2017 None Full Exam - General 1994 Respiratory respiratory effort/rhythm Overall: normal rate 09/20/2017 None Full Exam - General 1994 Cardiovascular extremities Overall: no clubbing 09/20/2017 None Full Exam - General 1994 Musculoskeletal spine, ribs and pelvis Overall: good posture 09/20/2017 None Full Exam - General 1994 Musculoskeletal head and neck Overall: head atraumatic 09/20/2017 None Full Exam - General 1994 Neurologic cranial nerves Overall: crainial nerves 2 - 12 grossly intact 09/20/2017 None Full Exam - General 1994 Psychiatric orientation/consciousness Overall: oriented to person, place and time 09/20/2017 None Full Exam - General 1994 Psychiatric mood and affect Overall: normal mood and affect 09/20/2017 None Full Exam - General 1994 Psychiatric appearance Overall: well-groomed, good eye contact 09/20/2017 None Full Exam - General 1994 Eyes conjunctiva /eyelids Overall: cornea clear 09/20/2017 None Full Exam - General 1994 Psychiatric speech Quantity: excessive speech 09/20/2017 None Full Exam - General 1994 Psychiatric speech Rate of production: rapid 09/20/2017 None Full Exam - General 1994 Constitutional general appearance Overall: well developed 01/24/2017 None Full Exam - General 1994 Constitutional general appearance Overall: in no acute distress 01/24/2017 None Full Exam - General 1994 Constitutional general appearance Overall: well nourished 01/24/2017 None Full Exam - General 1994 Constitutional general appearance Hygiene/Attention to Grooming: good hygiene 01/24/2017 None Full Exam - General 1994 Eyes conjunctiva /eyelids Overall: conjunctiva clear 01/24/2017 None Full Exam - General 1994 Eyes conjunctiva /eyelids Overall: eyelids normal 01/24/2017 None Full Exam - General 1994 Ears/Nose/Throat lips/teeth/gingiva Overall: benign lips 01/24/2017 None Full Exam - General 1994 Ears/Nose/Throat oral cavity/pharynx/larynx Overall: oral mucosa clear 01/24/2017 None Full Exam - General 1994 Respiratory respiratory effort/rhythm Overall: no retractions 01/24/2017 None Full Exam - General 1994 Respiratory respiratory effort/rhythm Overall: normal rate 01/24/2017 None Full Exam - General 1994 Cardiovascular extremities Overall: no clubbing 01/24/2017 None Full Exam - General 1994 Abdomen abdominal exam Overall: no tenderness 01/24/2017 None Full Exam - General 1994 Abdomen abdominal exam Overall: normal bowel sounds 01/24/2017 None Full Exam - General 1994 Musculoskeletal spine, ribs and pelvis Overall: good posture 01/24/2017 None Full Exam - General 1994 Musculoskeletal head and neck Overall: head atraumatic 01/24/2017 None Full Exam - General 1994 Neurologic cranial nerves Overall: crainial nerves 2 - 12 grossly intact 01/24/2017 None Full Exam - General 1994 Psychiatric orientation/consciousness Overall: oriented to person, place and time 01/24/2017 None Full Exam - General 1994 Psychiatric mood and affect Overall: normal mood and affect 01/24/2017 None Full Exam - General 1994 Psychiatric appearance Overall: well-groomed, good eye contact 01/24/2017 None Full Exam - General 1994 Cardiovascular auscultation of heart Overall: regular rate 01/24/2017 None Full Exam - General 1994 Cardiovascular auscultation of heart Overall: normal heart sounds 01/24/2017 None Full Exam - General 1994 Psychiatric mood and affect Mood: labile mood 01/24/2017 None Full Exam - General 1994 Constitutional general appearance Overall: well developed 12/13/2016 None Full Exam - General 1994 Constitutional general appearance Overall: in no acute distress 12/13/2016 None Full Exam - General 1994 Constitutional general appearance Overall: well nourished 12/13/2016 None Full Exam - General 1994 Constitutional general appearance Hygiene/Attention to Grooming: good hygiene 12/13/2016 None Full Exam - General 1994 Eyes conjunctiva /eyelids Overall: conjunctiva clear 12/13/2016 None Full Exam - General 1994 Eyes conjunctiva /eyelids Overall: eyelids normal 12/13/2016 None Full Exam - General 1994 Ears/Nose/Throat lips/teeth/gingiva Overall: benign lips 12/13/2016 None Full Exam - General 1994 Ears/Nose/Throat oral cavity/pharynx/larynx Overall: oral mucosa clear 12/13/2016 None Full Exam - General 1994 Respiratory respiratory effort/rhythm Overall: no retractions 12/13/2016 None Full Exam - General 1994 Respiratory respiratory effort/rhythm Overall: normal rate 12/13/2016 None Full Exam - General 1994 Cardiovascular extremities Overall: no clubbing 12/13/2016 None Full Exam - General 1994 Musculoskeletal spine, ribs and pelvis Overall: good posture 12/13/2016 None Full Exam - General 1994 Musculoskeletal head and neck Overall: head atraumatic 12/13/2016 None Full Exam - General 1994 Neurologic cranial nerves Overall: crainial nerves 2 - 12 grossly intact 12/13/2016 None Full Exam - General 1994 Psychiatric orientation/consciousness Overall: oriented to person, place and time 12/13/2016 None Full Exam - General 1994 Psychiatric mood and affect Overall: normal mood and affect 12/13/2016 None Full Exam - General 1994 Psychiatric appearance Overall: well-groomed, good eye contact 12/13/2016 None Full Exam - General 1994 Abdomen abdominal exam Overall: no tenderness 12/13/2016 None Full Exam - General 1994 Abdomen abdominal exam Overall: normal bowel sounds 12/13/2016 None Full Exam - Dermatology Constitutional general appearance Overall: well nourished 11/23/2016 None Full Exam - Dermatology Constitutional general appearance Overall: well developed 11/23/2016 None Full Exam - Dermatology Constitutional general appearance Overall: in no acute distress 11/23/2016 None Full Exam - Dermatology Eyes conjunctiva/ eyelids Overall: clear conjunctiva bilaterally 11/23/2016 None Full Exam - Dermatology Eyes conjunctiva/ eyelids Overall: normal eyelids 11/23/2016 None Full Exam - Dermatology Ears/Nose/Throat lips/teeth/gingiva Overall: benign lips 11/23/2016 None Full Exam - Dermatology Ears/Nose/Throat oropharynx Overall: clear oral mucosa 11/23/2016 None Full Exam - Dermatology Respiratory auscultation Overall: breath sounds clear bilaterally 11/23/2016 None Full Exam - Dermatology Respiratory respiratory effort/rhythm Overall: no retractions 11/23/2016 None Full Exam - Dermatology Respiratory respiratory effort/rhythm Overall: normal rate 11/23/2016 None Full Exam - Dermatology Musculoskeletal head and neck Overall: head atraumatic 11/23/2016 None Full Exam - Dermatology Musculoskeletal head and neck Overall: cervical spine benign 11/23/2016 None Full Exam - Dermatology Integument insp & palp - left upper extremity Lesion: patch 11/23/2016 None Full Exam - Dermatology Integument insp & palp - left upper extremity Location: on the hand 11/23/2016 multiple small areas of dry flaking skin Full Exam - Dermatology Integument insp & palp - right upper extremity Lesion: patch 11/23/2016 None Full Exam - Dermatology Integument insp & palp - right upper extremity Location: on the hand 11/23/2016 multiple small areas of dry flaking skin Full Exam - Dermatology Psychiatric orientation Overall: oriented to person, place and time 11/23/2016 None Full Exam - Dermatology Psychiatric mood and affect Overall: normal mood and affect 11/23/2016 None Full Exam - Dermatology Integument insp & palp - left upper extremity Location: on the fingers 11/23/2016 Dyshidrosis Full Exam - General 1994 Constitutional general appearance Overall: well developed 08/17/2016 None Full Exam - General 1994 Constitutional general appearance Overall: in no acute distress 08/17/2016 None Full Exam - General 1994 Constitutional general appearance Overall: well nourished 08/17/2016 None Full Exam - General 1994 Constitutional general appearance Hygiene/Attention to Grooming: good hygiene 08/17/2016 None Full Exam - General 1994 Eyes conjunctiva /eyelids Overall: conjunctiva clear 08/17/2016 None Full Exam - General 1994 Eyes conjunctiva /eyelids Overall: eyelids normal 08/17/2016 None Full Exam - General 1994 Ears/Nose/Throat lips/teeth/gingiva Overall: benign lips 08/17/2016 None Full Exam - General 1994 Ears/Nose/Throat oral cavity/pharynx/larynx Overall: oral mucosa clear 08/17/2016 None Full Exam - General 1994 Respiratory respiratory effort/rhythm Overall: no retractions 08/17/2016 None Full Exam - General 1994 Respiratory respiratory effort/rhythm Overall: normal rate 08/17/2016 None Full Exam - General 1994 Cardiovascular extremities Overall: no clubbing 08/17/2016 None Full Exam - General 1994 Musculoskeletal spine, ribs and pelvis Overall: good posture 08/17/2016 None Full Exam - General 1994 Musculoskeletal head and neck Overall: head atraumatic 08/17/2016 None Full Exam - General 1994 Neurologic cranial nerves Overall: crainial nerves 2 - 12 grossly intact 08/17/2016 None Full Exam - General 1994 Psychiatric orientation/consciousness Overall: oriented to person, place and time 08/17/2016 None Full Exam - General 1994 Psychiatric mood and affect Overall: normal mood and affect 08/17/2016 None Full Exam - General 1994 Psychiatric appearance Overall: well-groomed, good eye contact 08/17/2016 None Full Exam - General 1994 Abdomen abdominal exam Overall: no tenderness 08/17/2016 None Full Exam - General 1994 Abdomen abdominal exam Overall: normal bowel sounds 08/17/2016 None Full Exam - General 1994 Constitutional general appearance Overall: well developed 06/29/2016 None Full Exam - General 1994 Constitutional general appearance Overall: in no acute distress 06/29/2016 None Full Exam - General 1994 Constitutional general appearance Overall: well nourished 06/29/2016 None Full Exam - General 1994 Constitutional general appearance Hygiene/Attention to Grooming: good hygiene 06/29/2016 None Full Exam - General 1994 Eyes conjunctiva /eyelids Overall: conjunctiva clear 06/29/2016 None Full Exam - General 1994 Eyes conjunctiva /eyelids Overall: eyelids normal 06/29/2016 None Full Exam - General 1994 Ears/Nose/Throat lips/teeth/gingiva Overall: benign lips 06/29/2016 None Full Exam - General 1994 Ears/Nose/Throat oral cavity/pharynx/larynx Overall: oral mucosa clear 06/29/2016 None Full Exam - General 1994 Respiratory respiratory effort/rhythm Overall: no retractions 06/29/2016 None Full Exam - General 1994 Respiratory respiratory effort/rhythm Overall: normal rate 06/29/2016 None Full Exam - General 1994 Cardiovascular extremities Overall: no clubbing 06/29/2016 None Full Exam - General 1994 Musculoskeletal spine, ribs and pelvis Overall: good posture 06/29/2016 None Full Exam - General 1994 Musculoskeletal head and neck Overall: head atraumatic 06/29/2016 None Full Exam - General 1994 Neurologic cranial nerves Overall: crainial nerves 2 - 12 grossly intact 06/29/2016 None Full Exam - General 1994 Psychiatric orientation/consciousness Overall: oriented to person, place and time 06/29/2016 None Full Exam - General 1994 Psychiatric mood and affect Overall: normal mood and affect 06/29/2016 None Full Exam - General 1995 Psychiatric appearance Overall: well-groomed, good eye contact 06/29/2016 None Full Exam - ENT Constitutional general appearance Overall: well nourished 06/07/2016 None Full Exam - ENT Constitutional general appearance Overall: well developed 06/07/2016 None Full Exam - ENT Constitutional general appearance Overall: in no acute distress 06/07/2016 None Full Exam - ENT Ears/Nose/Throat otoscopic exam Overall: external auditory canals normal 06/07/2016 None Full Exam - ENT Ears/Nose/Throat nasal mucosa, septum, turbinates Drainage: clear 06/07/2016 None Full Exam - ENT Ears/Nose/Throat nasal mucosa, septum, turbinates Drainage: yellow 06/07/2016 None Full Exam - ENT Ears/Nose/Throat lips/ teeth/gingiva Overall: benign lips 06/07/2016 None Full Exam - ENT Ears/Nose/Throat oropharynx Posterior Pharynx: clear post nasal drainage 06/07/2016 None Full Exam - ENT Face and Head palpation Left maxillary sinus: tender 06/07/2016 None Full Exam - ENT Face and Head palpation Right maxillary sinus: tender 06/07/2016 None Full Exam - ENT Face and Head palpation Left frontal sinus: tender 06/07/2016 None Full Exam - ENT Face and Head palpation Right frontal sinus: tender 06/07/2016 None Full Exam - ENT Respiratory inspection Overall: no retractions 06/07/2016 None Full Exam - ENT Respiratory inspection Overall: normal rate None Full Exam - ENT Respiratory auscultation Diffuse: diminished None Full Exam - ENT Cardiovascular auscultation of heart Overall: regular rate 06/07/2016 None Full Exam - ENT Cardiovascular auscultation of heart Overall: normal heart sounds 06/07/2016 None Full Exam - ENT Lymphatic palpation of lymph nodes Overall: anterior cervical chain benign 06/07/2016 None Full Exam - ENT Lymphatic palpation of lymph nodes Overall: posterior cervical chain benign 06/07/2016 None Full Exam - ENT Neurologic mood and affect Overall: normal mood 06/07/2016 None Full Exam - ENT Neurologic mood and affect Overall: normal affect 06/07/2016 None Full Exam - ENT Neurologic orientation Overall: oriented to person, place and time 06/07/2016 None Full Exam - ENT Ears/Nose/Throat otoscopic exam Left tympanic membrane: air -fluid level 06/07/2016 None Full Exam - ENT Ears/Nose/Throat otoscopic exam Right tympanic membrane: air-fluid level 06/07/2016 None Full Exam - ENT Respiratory auscultation Right lower lung field: expiratory wheezes 06/07/2016 very faint Full Exam - ENT Constitutional general appearance Overall: well nourished 05/17/2016 None Full Exam - ENT Constitutional general appearance Overall: well developed 05/17/2016 None Full Exam - ENT Constitutional general appearance Overall: in no acute distress 05/17/2016 None Full Exam - ENT Ears/Nose/Throat otoscopic exam Overall: external auditory canals normal 05/17/2016 None Full Exam - ENT Ears/Nose/Throat otoscopic exam Left tympanic membrane: air -fluid level 05/17/2016 None Full Exam - ENT Ears/Nose/Throat otoscopic exam Right tympanic membrane: air-fluid level 05/17/2016 None Full Exam - ENT Ears/Nose/Throat nasal mucosa, septum, turbinates Drainage: clear 05/17/2016 None Full Exam - ENT Ears/Nose/Throat nasal mucosa, septum, turbinates Drainage: yellow 05/17/2016 None Full Exam - ENT Ears/Nose/Throat lips/ teeth/gingiva Overall: benign lips 05/17/2016 None Full Exam - ENT Ears/Nose/Throat oropharynx Posterior Pharynx: clear post nasal drainage 05/17/2016 None Full Exam - ENT Face and Head palpation Left maxillary sinus: tender 05/17/2016 None Full Exam - ENT Face and Head palpation Right maxillary sinus: tender 05/17/2016 None Full Exam - ENT Respiratory inspection Overall: no retractions 05/17/2016 None Full Exam - ENT Respiratory inspection Overall: normal rate None Full Exam - ENT Respiratory auscultation Overall: breath sounds clear bilaterally 05/17/2016 None Full Exam - ENT Cardiovascular auscultation of heart Overall: regular rate 05/17/2016 None Full Exam - ENT Cardiovascular auscultation of heart Overall: normal heart sounds 05/17/2016 None Full Exam - ENT Lymphatic palpation of lymph nodes Overall: anterior cervical chain benign 05/17/2016 None Full Exam - ENT Lymphatic palpation of lymph nodes Overall: posterior cervical chain benign 05/17/2016 None Full Exam - ENT Neurologic mood and affect Overall: normal mood 05/17/2016 None Full Exam - ENT Neurologic mood and affect Overall: normal affect 05/17/2016 None Full Exam - ENT Neurologic orientation Overall: oriented to person, place and time 05/17/2016 None Full Exam - ENT Ears/Nose/Throat otoscopic exam Right tympanic membrane: erythematous 05/17/2016 None Full Exam - ENT Ears/Nose/Throat otoscopic exam Left tympanic membrane: erythematous 05/17/2016 None Full Exam - ENT Face and Head palpation Left frontal sinus: tender 05/17/2016 None Full Exam - ENT Face and Head palpation Right frontal sinus: tender 05/17/2016 None Full Exam - ENT Respiratory auscultation Diffuse: diminished None Full Exam - General 1994 Constitutional general appearance Overall: well developed 04/27/2016 None Full Exam - General 1994 Constitutional general appearance Overall: in no acute distress 04/27/2016 None Full Exam - General 1994 Constitutional general appearance Overall: well nourished 04/27/2016 None Full Exam - General 1994 Constitutional general appearance Hygiene/Attention to Grooming: good hygiene 04/27/2016 None Full Exam - General 1994 Eyes conjunctiva /eyelids Overall: conjunctiva clear 04/27/2016 None Full Exam - General 1994 Eyes conjunctiva /eyelids Overall: eyelids normal 04/27/2016 None Full Exam - General 1994 Ears/Nose/Throat lips/teeth/gingiva Overall: benign lips 04/27/2016 None Full Exam - General 1994 Ears/Nose/Throat oral cavity/pharynx/larynx Overall: oral mucosa clear 04/27/2016 None Full Exam - General 1994 Respiratory respiratory effort/rhythm Overall: no retractions 04/27/2016 None Full Exam - General 1994 Respiratory respiratory effort/rhythm Overall: normal rate 04/27/2016 None Full Exam - General 1994 Cardiovascular extremities Overall: no clubbing 04/27/2016 None Full Exam - General 1994 Musculoskeletal spine, ribs and pelvis Overall: good posture 04/27/2016 None Full Exam - General 1994 Neurologic cranial nerves Overall: crainial nerves 2 - 12 grossly intact 04/27/2016 None Full Exam - General 1994 Psychiatric orientation/consciousness Overall: oriented to person, place and time 04/27/2016 None Full Exam - General 1994 Psychiatric mood and affect Overall: normal mood and affect 04/27/2016 None Full Exam - General 1994 Psychiatric appearance Overall: well-groomed, good eye contact 04/27/2016 None Full Exam - General 1994 Musculoskeletal head and neck Overall: head atraumatic 04/27/2016 None Full Exam - General 1994 Constitutional general appearance Hygiene/Attention to Grooming: good hygiene 03/18/2016 None Full Exam - General 1994 Eyes conjunctiva /eyelids Overall: conjunctiva clear 03/18/2016 None Full Exam - General 1994 Eyes conjunctiva /eyelids Overall: eyelids normal 03/18/2016 None Full Exam - General 1994 Ears/Nose/Throat lips/teeth/gingiva Overall: benign lips 03/18/2016 None Full Exam - General 1994 Ears/Nose/Throat oral cavity/pharynx/larynx Overall: oral mucosa clear 03/18/2016 None Full Exam - General 1994 Ears/Nose/Throat oral cavity/pharynx/larynx Overall: oropharyngeal mucosa clear 03/18/2016 None Full Exam - General 1994 Ears/Nose/Throat oral cavity/pharynx/larynx Overall: no masses 03/18/2016 None Full Exam - General 1994 Ears/Nose/Throat oral cavity/pharynx/larynx Posterior Pharynx: clear post nasal drainage 03/18/2016 None Full Exam - General 1994 Respiratory auscultation Upper lung field: diminished 03/18/2016 None Full Exam - General 1994 Respiratory auscultation Lower lung field: diminished 03/18/2016 None Full Exam - General 1994 Respiratory auscultation Lower lung field: expiratory wheezes 03/18/2016 None Full Exam - General 1994 Respiratory respiratory effort/rhythm Overall: no retractions 03/18/2016 None Full Exam - General 1994 Respiratory respiratory effort/rhythm Overall: normal rate 03/18/2016 None Full Exam - General 1994 Cardiovascular extremities Overall: no clubbing 03/18/2016 None Full Exam - General 1994 Cardiovascular auscultation of heart Overall: regular rate 03/18/2016 None Full Exam - General 1994 Cardiovascular auscultation of heart Overall: normal heart sounds 03/18/2016 None Full Exam - General 1994 Musculoskeletal spine, ribs and pelvis Overall: good posture 03/18/2016 None Full Exam - General 1994 Neurologic cranial nerves Overall: crainial nerves 2 - 12 grossly intact 03/18/2016 None Full Exam - General 1994 Psychiatric orientation/consciousness Overall: oriented to person, place and time 03/18/2016 None Full Exam - General 1994 Psychiatric mood and affect Overall: normal mood and affect 03/18/2016 None Full Exam - General 1994 Constitutional general appearance Overall: well developed 03/18/2016 None Full Exam - General 1994 Constitutional general appearance Overall: in no acute distress 03/18/2016 None Full Exam - General 1994 Constitutional general appearance Overall: well nourished 03/18/2016 None Full Exam - General 1994 Ears/Nose/Throat otoscopic exam Overall: external auditory canals clear 03/18/2016 None Full Exam - General 1994 Ears/Nose/Throat otoscopic exam Tympanic membrane: air- fluid level 03/18/2016 None Full Exam - General 1994 Lymphatic neck nodes Overall: anterior cervical chain benign 03/18/2016 None Full Exam - General 1994 Lymphatic neck nodes Overall: posterior cervical chain benign 03/18/2016 None Full Exam - General 1994 Integument inspection of skin Location: neck 03/18/2016 None Full Exam - General 1994 Integument inspection of skin Rash/Lesions: surgical site 03/18/2016 clean, dry dressing in place Full Exam - General 1994 Psychiatric appearance Overall: well-groomed, good eye contact 03/18/2016 None Full Exam - General 1994 Constitutional general appearance Development: well developed 09/09/2015 None Full Exam - General 1994 Constitutional general appearance Development: appears stated age 0509/09/2015 None Full Exam - General 1994 Constitutional general appearance Hygiene/Attention to Grooming: good hygiene 09/09/2015 None Full Exam - General 1994 Eyes conjunctiva /eyelids Overall: conjunctiva clear 09/09/2015 None Full Exam - General 1994 Eyes conjunctiva /eyelids Overall: cornea clear 09/09/2015 None Full Exam - General 1994 Eyes conjunctiva /eyelids Overall: eyelids normal 09/09/2015 None Full Exam - General 1994 Eyes pupils and irises Overall: pupils equal, round, reactive to light and accomodation 09/09/2015 None Full Exam - General 1994 Ears/Nose/Throat oral cavity/pharynx/larynx Overall: oral mucosa clear 09/09/2015 None Full Exam - General 1994 Respiratory auscultation Overall: breath sounds clear bilaterally 09/09/2015 None Full Exam - General 1994 Respiratory respiratory effort/rhythm Overall: no retractions 09/09/2015 None Full Exam - General 1994 Respiratory respiratory effort/rhythm Overall: normal rate 09/09/2015 None Full Exam - General 1994 Cardiovascular extremities Overall: no clubbing 09/09/2015 None Full Exam - General 1994 Cardiovascular auscultation of heart Overall: regular rate 09/09/2015 None Full Exam - General 1994 Cardiovascular auscultation of heart Overall: normal heart sounds 09/09/2015 None Full Exam - General 1994 Abdomen abdominal exam Overall: no tenderness 09/09/2015 None Full Exam - General 1994 Abdomen abdominal exam Overall: normal bowel sounds 09/09/2015 None Full Exam - General 1994 Musculoskeletal spine, ribs and pelvis Overall: good posture 09/09/2015 None Full Exam - General 1994 Musculoskeletal head and neck Overall: head atraumatic 09/09/2015 None Full Exam - General 1994 Neurologic cranial nerves Overall: crainial nerves 2 - 12 grossly intact 09/09/2015 None Full Exam - General 1994 Psychiatric orientation/consciousness Overall: oriented to person, place and time 09/09/2015 None Full Exam - General 1994 Psychiatric mood and affect Overall: normal mood and affect 09/09/2015 None Full Exam - General 1994 Ears/Nose/Throat lips/teeth/gingiva Overall: benign lips 09/09/2015 None Full Exam - General 1994 Integument inspection of skin Overall: no rash, lesions 09/09/2015 None Full Exam - General 1994 Neurologic gait Overall: no ataxia, no unsteadiness 09/09/2015 None Full Exam - General 1994 Psychiatric appearance Overall: well-groomed, good eye contact 09/09/2015 None Full Exam - General 1994 Constitutional general appearance Development: well developed 09/04/2015 None Full Exam - General 1994 Constitutional general appearance Development: appears stated age 0509/04/2015 None Full Exam - General 1994 Constitutional general appearance Hygiene/Attention to Grooming: good hygiene 09/04/2015 None Full Exam - General 1994 Eyes conjunctiva /eyelids Overall: conjunctiva clear 09/04/2015 None Full Exam - General 1994 Eyes conjunctiva /eyelids Overall: cornea clear 09/04/2015 None Full Exam - General 1994 Eyes conjunctiva /eyelids Overall: eyelids normal 09/04/2015 None Full Exam - General 1994 Ears/Nose/Throat oral cavity/pharynx/larynx Overall: oral mucosa clear 09/04/2015 None Full Exam - General 1994 Ears/Nose/Throat oral cavity/pharynx/larynx Overall: oropharyngeal mucosa clear 09/04/2015 None Full Exam - General 1994 Ears/Nose/Throat oral cavity/pharynx/larynx Overall: no masses 09/04/2015 None Full Exam - General 1994 Respiratory respiratory effort/rhythm Overall: no retractions 09/04/2015 None Full Exam - General 1994 Respiratory respiratory effort/rhythm Overall: normal rate 09/04/2015 None Full Exam - General 1994 Cardiovascular extremities Overall: no clubbing 09/04/2015 None Full Exam - General 1994 Cardiovascular auscultation of heart Overall: regular rate 09/04/2015 None Full Exam - General 1994 Cardiovascular auscultation of heart Overall: normal heart sounds 09/04/2015 None Full Exam - General 1994 Musculoskeletal spine, ribs and pelvis Overall: good posture 09/04/2015 None Full Exam - General 1994 Musculoskeletal head and neck Overall: head atraumatic 09/04/2015 None Full Exam - General 1994 Neurologic cranial nerves Overall: crainial nerves 2 - 12 grossly intact 09/04/2015 None Full Exam - General 1994 Psychiatric orientation/consciousness Overall: oriented to person, place and time 09/04/2015 None Full Exam - General 1994 Psychiatric mood and affect Overall: normal mood and affect 09/04/2015 None Full Exam - General 1994 Ears/Nose/Throat oral cavity/pharynx/larynx Posterior Pharynx: clear post nasal drainage 09/04/2015 None Full Exam - General 1994 Ears/Nose/Throat lips/teeth/gingiva Overall: benign lips 09/04/2015 None Full Exam - General 1994 Respiratory auscultation Lower lung field: diminished 09/04/2015 None Full Exam - General 1994 Respiratory auscultation Lower lung field: expiratory wheezes 09/04/2015 None Full Exam - General 1994 Respiratory auscultation Upper lung field: diminished 09/04/2015 None Full Exam - General 1994 Integument inspection of skin Overall: no rash, lesions 09/04/2015 None Full Exam - General 1994 Constitutional general appearance Development: well developed 07/08/2015 None Full Exam - General 1994 Constitutional general appearance Development: appears stated age 0307/08/2015 None Full Exam - General 1994 Constitutional general appearance Hygiene/Attention to Grooming: good hygiene 07/08/2015 None Full Exam - General 1994 Eyes conjunctiva /eyelids Overall: conjunctiva clear 07/08/2015 None Full Exam - General 1994 Eyes conjunctiva /eyelids Overall: cornea clear 07/08/2015 None Full Exam - General 1994 Eyes conjunctiva /eyelids Overall: eyelids normal 07/08/2015 None Full Exam - General 1994 Eyes pupils and irises Overall: pupils equal, round, reactive to light and accomodation 07/08/2015 None Full Exam - General 1994 Ears/Nose/Throat oral cavity/pharynx/larynx Overall: oral mucosa clear 07/08/2015 None Full Exam - General 1994 Ears/Nose/Throat oral cavity/pharynx/larynx Overall: oropharyngeal mucosa clear 07/08/2015 None Full Exam - General 1994 Ears/Nose/Throat oral cavity/pharynx/larynx Overall: hypopharynx benign 07/08/2015 None Full Exam - General 1994 Ears/Nose/Throat oral cavity/pharynx/larynx Overall: no masses 07/08/2015 None Full Exam - General 1994 Respiratory auscultation Overall: breath sounds clear bilaterally 07/08/2015 None Full Exam - General 1994 Respiratory respiratory effort/rhythm Overall: no retractions 07/08/2015 None Full Exam - General 1994 Respiratory respiratory effort/rhythm Overall: normal rate 07/08/2015 None Full Exam - General 1994 Cardiovascular extremities Overall: no clubbing 07/08/2015 None Full Exam - General 1994 Cardiovascular auscultation of heart Overall: regular rate 07/08/2015 None Full Exam - General 1994 Cardiovascular auscultation of heart Overall: normal heart sounds 07/08/2015 None Full Exam - General 1994 Abdomen abdominal exam Overall: no tenderness 07/08/2015 None Full Exam - General 1994 Abdomen abdominal exam Overall: normal bowel sounds 07/08/2015 None Full Exam - General 1994 Musculoskeletal spine, ribs and pelvis Overall: spine benign 07/08/2015 None Full Exam - General 1994 Musculoskeletal spine, ribs and pelvis Overall: sacroiliac joint benign 07/08/2015 None Full Exam - General 1994 Musculoskeletal spine, ribs and pelvis Overall: good posture 07/08/2015 None Full Exam - General 1994 Musculoskeletal head and neck Overall: head atraumatic 07/08/2015 None Full Exam - General 1994 Musculoskeletal head and neck Overall: cervical spine benign 07/08/2015 None Full Exam - General 1994 Integument inspection of skin Overall: few scattered moles, no gross abnormalities 07/08/2015 None Full Exam - General 1994 Neurologic deep tendon reflexes Overall: deep tendon reflexes intact 07/08/2015 None Full Exam - General 1994 Neurologic cranial nerves Overall: crainial nerves 2 - 12 grossly intact 07/08/2015 None Full Exam - General 1994 Psychiatric orientation/consciousness Overall: oriented to person, place and time 07/08/2015 None Full Exam - General 1994 Psychiatric mood and affect Overall: normal mood and affect 07/08/2015 None Full Exam - General 1994 Constitutional general appearance Development: well developed 05/19/2015 None Full Exam - General 1994 Constitutional general appearance Development: appears stated age 0205/19/2015 None Full Exam - General 1994 Constitutional general appearance Hygiene/Attention to Grooming: good hygiene 05/19/2015 None Full Exam - General 1994 Eyes conjunctiva /eyelids Overall: conjunctiva clear 05/19/2015 None Full Exam - General 1994 Eyes conjunctiva /eyelids Overall: cornea clear 05/19/2015 None Full Exam - General 1994 Eyes conjunctiva /eyelids Overall: eyelids normal 05/19/2015 None Full Exam - General 1994 Eyes pupils and irises Overall: pupils equal, round, reactive to light and accomodation 05/19/2015 None Full Exam - General 1994 Ears/Nose/Throat oral cavity/pharynx/larynx Overall: oral mucosa clear 05/19/2015 None Full Exam - General 1994 Ears/Nose/Throat oral cavity/pharynx/larynx Overall: oropharyngeal mucosa clear 05/19/2015 None Full Exam - General 1994 Ears/Nose/Throat oral cavity/pharynx/larynx Overall: hypopharynx benign 05/19/2015 None Full Exam - General 1994 Ears/Nose/Throat oral cavity/pharynx/larynx Overall: no masses 05/19/2015 None Full Exam - General 1994 Respiratory auscultation Overall: breath sounds clear bilaterally 05/19/2015 None Full Exam - General 1994 Respiratory respiratory effort/rhythm Overall: no retractions 05/19/2015 None Full Exam - General 1994 Respiratory respiratory effort/rhythm Overall: normal rate 05/19/2015 None Full Exam - General 1994 Cardiovascular extremities Overall: no clubbing 05/19/2015 None Full Exam - General 1994 Cardiovascular auscultation of heart Overall: regular rate 05/19/2015 None Full Exam - General 1994 Cardiovascular auscultation of heart Overall: normal heart sounds 05/19/2015 None Full Exam - General 1994 Abdomen abdominal exam Overall: no tenderness 05/19/2015 None Full Exam - General 1994 Abdomen abdominal exam Overall: normal bowel sounds 05/19/2015 None Full Exam - General 1994 Musculoskeletal spine, ribs and pelvis Overall: spine benign 05/19/2015 None Full Exam - General 1994 Musculoskeletal spine, ribs and pelvis Overall: sacroiliac joint benign 05/19/2015 None Full Exam - General 1994 Musculoskeletal spine, ribs and pelvis Overall: good posture 05/19/2015 None Full Exam - General 1994 Musculoskeletal head and neck Overall: head atraumatic 05/19/2015 None Full Exam - General 1994 Musculoskeletal head and neck Overall: cervical spine benign 05/19/2015 None Full Exam - General 1994 Integument inspection of skin Overall: few scattered moles, no gross abnormalities 05/19/2015 None Full Exam - General 1994 Neurologic deep tendon reflexes Overall: deep tendon reflexes intact 05/19/2015 None Full Exam - General 1994 Neurologic cranial nerves Overall: crainial nerves 2 - 12 grossly intact 05/19/2015 None Full Exam - General 1994 Psychiatric orientation/consciousness Overall: oriented to person, place and time 05/19/2015 None Full Exam - General 1994 Psychiatric mood and affect Overall: normal mood and affect 05/19/2015 None Full Exam - General 1994 Constitutional general appearance Development: well developed 03/31/2015 None Full Exam - General 1994 Constitutional general appearance Development: appears stated age 1203/31/2015 None Full Exam - General 1994 Constitutional general appearance Hygiene/Attention to Grooming: good hygiene 03/31/2015 None Full Exam - General 1994 Eyes conjunctiva /eyelids Overall: conjunctiva clear 03/31/2015 None Full Exam - General 1994 Eyes conjunctiva /eyelids Overall: cornea clear 03/31/2015 None Full Exam - General 1994 Eyes conjunctiva /eyelids Overall: eyelids normal 03/31/2015 None Full Exam - General 1994 Eyes pupils and irises Overall: pupils equal, round, reactive to light and accomodation 03/31/2015 None Full Exam - General 1994 Ears/Nose/Throat oral cavity/pharynx/larynx Overall: oral mucosa clear 03/31/2015 None Full Exam - General 1994 Ears/Nose/Throat oral cavity/pharynx/larynx Overall: oropharyngeal mucosa clear 03/31/2015 None Full Exam - General 1994 Ears/Nose/Throat oral cavity/pharynx/larynx Overall: hypopharynx benign 03/31/2015 None Full Exam - General 1994 Ears/Nose/Throat oral cavity/pharynx/larynx Overall: no masses 03/31/2015 None Full Exam - General 1994 Respiratory auscultation Overall: breath sounds clear bilaterally 03/31/2015 None Full Exam - General 1994 Respiratory respiratory effort/rhythm Overall: no retractions 03/31/2015 None Full Exam - General 1994 Respiratory respiratory effort/rhythm Overall: normal rate 03/31/2015 None Full Exam - General 1994 Cardiovascular extremities Overall: no clubbing 03/31/2015 None Full Exam - General 1994 Cardiovascular auscultation of heart Overall: regular rate 03/31/2015 None Full Exam - General 1994 Cardiovascular auscultation of heart Overall: normal heart sounds 03/31/2015 None Full Exam - General 1994 Abdomen abdominal exam Overall: no tenderness 03/31/2015 None Full Exam - General 1994 Abdomen abdominal exam Overall: normal bowel sounds 03/31/2015 None Full Exam - General 1994 Musculoskeletal spine, ribs and pelvis Overall: spine benign 03/31/2015 None Full Exam - General 1994 Musculoskeletal spine, ribs and pelvis Overall: sacroiliac joint benign 03/31/2015 None Full Exam - General 1994 Musculoskeletal spine, ribs and pelvis Overall: good posture 03/31/2015 None Full Exam - General 1994 Musculoskeletal head and neck Overall: head atraumatic 03/31/2015 None Full Exam - General 1994 Musculoskeletal head and neck Overall: cervical spine benign 03/31/2015 None Full Exam - General 1994 Integument inspection of skin Overall: few scattered moles, no gross abnormalities 03/31/2015 None Full Exam - General 1994 Neurologic deep tendon reflexes Overall: deep tendon reflexes intact 03/31/2015 None Full Exam - General 1994 Neurologic cranial nerves Overall: crainial nerves 2 - 12 grossly intact 03/31/2015 None Full Exam - General 1994 Psychiatric orientation/consciousness Overall: oriented to person, place and time 03/31/2015 None Full Exam - General 1994 Psychiatric mood and affect Overall: normal mood and affect 03/31/2015 None Full Exam - General 1994 Constitutional general appearance Development: well developed 02/03/2015 None Full Exam - General 1994 Constitutional general appearance Development: appears stated age 1002/03/2015 None Full Exam - General 1994 Constitutional general appearance Hygiene/Attention to Grooming: good hygiene 02/03/2015 None Full Exam - General 1994 Eyes conjunctiva /eyelids Overall: conjunctiva clear 02/03/2015 None Full Exam - General 1994 Eyes conjunctiva /eyelids Overall: cornea clear 02/03/2015 None Full Exam - General 1994 Eyes conjunctiva /eyelids Overall: eyelids normal 02/03/2015 None Full Exam - General 1994 Eyes pupils and irises Overall: pupils equal, round, reactive to light and accomodation 02/03/2015 None Full Exam - General 1994 Ears/Nose/Throat oral cavity/pharynx/larynx Overall: oral mucosa clear 02/03/2015 None Full Exam - General 1994 Ears/Nose/Throat oral cavity/pharynx/larynx Overall: oropharyngeal mucosa clear 02/03/2015 None Full Exam - General 1994 Ears/Nose/Throat oral cavity/pharynx/larynx Overall: hypopharynx benign 02/03/2015 None Full Exam - General 1994 Ears/Nose/Throat oral cavity/pharynx/larynx Overall: no masses 02/03/2015 None Full Exam - General 1994 Respiratory auscultation Overall: breath sounds clear bilaterally 02/03/2015 None Full Exam - General 1994 Respiratory respiratory effort/rhythm Overall: no retractions 02/03/2015 None Full Exam - General 1994 Respiratory respiratory effort/rhythm Overall: normal rate 02/03/2015 None Full Exam - General 1994 Cardiovascular extremities Overall: no clubbing 02/03/2015 None Full Exam - General 1994 Cardiovascular auscultation of heart Overall: regular rate 02/03/2015 None Full Exam - General 1994 Cardiovascular auscultation of heart Overall: normal heart sounds 02/03/2015 None Full Exam - General 1994 Abdomen abdominal exam Overall: no tenderness 02/03/2015 None Full Exam - General 1994 Abdomen abdominal exam Overall: normal bowel sounds 02/03/2015 None Full Exam - General 1994 Musculoskeletal spine, ribs and pelvis Overall: spine benign 02/03/2015 None Full Exam - General 1994 Musculoskeletal spine, ribs and pelvis Overall: sacroiliac joint benign 02/03/2015 None Full Exam - General 1994 Musculoskeletal spine, ribs and pelvis Overall: good posture 02/03/2015 None Full Exam - General 1994 Musculoskeletal head and neck Overall: head atraumatic 02/03/2015 None Full Exam - General 1994 Musculoskeletal head and neck Overall: cervical spine benign 02/03/2015 None Full Exam - General 1994 Integument inspection of skin Overall: few scattered moles, no gross abnormalities 02/03/2015 None Full Exam - General 1994 Neurologic deep tendon reflexes Overall: deep tendon reflexes intact 02/03/2015 None Full Exam - General 1994 Neurologic cranial nerves Overall: crainial nerves 2 - 12 grossly intact 02/03/2015 None Full Exam - General 1994 Psychiatric orientation/consciousness Overall: oriented to person, place and time 02/03/2015 None Full Exam - General 1994 Psychiatric mood and affect Overall: normal mood and affect 02/03/2015 None Full Exam - General 1994 Constitutional general appearance Development: well developed 12/31/2014 None Full Exam - General 1994 Constitutional general appearance Development: appears stated age 0912/31/2014 None Full Exam - General 1994 Constitutional general appearance Hygiene/Attention to Grooming: good hygiene 12/31/2014 None Full Exam - General 1994 Eyes conjunctiva /eyelids Overall: conjunctiva clear 12/31/2014 None Full Exam - General 1994 Eyes conjunctiva /eyelids Overall: cornea clear 12/31/2014 None Full Exam - General 1994 Eyes conjunctiva /eyelids Overall: eyelids normal 12/31/2014 None Full Exam - General 1994 Eyes pupils and irises Overall: pupils equal, round, reactive to light and accomodation 12/31/2014 None Full Exam - General 1994 Ears/Nose/Throat oral cavity/pharynx/larynx Overall: oral mucosa clear 12/31/2014 None Full Exam - General 1994 Ears/Nose/Throat oral cavity/pharynx/larynx Overall: oropharyngeal mucosa clear 12/31/2014 None Full Exam - General 1994 Ears/Nose/Throat oral cavity/pharynx/larynx Overall: hypopharynx benign 12/31/2014 None Full Exam - General 1994 Ears/Nose/Throat oral cavity/pharynx/larynx Overall: no masses 12/31/2014 None Full Exam - General 1994 Respiratory auscultation Overall: breath sounds clear bilaterally 12/31/2014 None Full Exam - General 1994 Respiratory respiratory effort/rhythm Overall: no retractions 12/31/2014 None Full Exam - General 1994 Respiratory respiratory effort/rhythm Overall: normal rate 12/31/2014 None Full Exam - General 1994 Cardiovascular extremities Overall: no clubbing 12/31/2014 None Full Exam - General 1994 Cardiovascular auscultation of heart Overall: regular rate 12/31/2014 None Full Exam - General 1994 Cardiovascular auscultation of heart Overall: normal heart sounds 12/31/2014 None Full Exam - General 1994 Abdomen abdominal exam Overall: no tenderness 12/31/2014 None Full Exam - General 1994 Abdomen abdominal exam Overall: normal bowel sounds 12/31/2014 None Full Exam - General 1994 Musculoskeletal spine, ribs and pelvis Overall: spine benign 12/31/2014 None Full Exam - General 1994 Musculoskeletal spine, ribs and pelvis Overall: sacroiliac joint benign 12/31/2014 None Full Exam - General 1994 Musculoskeletal spine, ribs and pelvis Overall: good posture 12/31/2014 None Full Exam - General 1994 Musculoskeletal head and neck Overall: head atraumatic 12/31/2014 None Full Exam - General 1994 Musculoskeletal head and neck Overall: cervical spine benign 12/31/2014 None Full Exam - General 1994 Integument inspection of skin Overall: few scattered moles, no gross abnormalities 12/31/2014 None Full Exam - General 1994 Neurologic deep tendon reflexes Overall: deep tendon reflexes intact 12/31/2014 None Full Exam - General 1994 Neurologic cranial nerves Overall: crainial nerves 2 - 12 grossly intact 12/31/2014 None Full Exam - General 1994 Psychiatric orientation/consciousness Overall: oriented to person, place and time 12/31/2014 None Full Exam - General 1994 Psychiatric mood and affect Overall: normal mood and affect 12/31/2014 None Full Exam - General 1994 Constitutional general appearance Development: well developed 10/03/2014 None Full Exam - General 1994 Constitutional general appearance Development: appears stated age 0610/03/2014 None Full Exam - General 1994 Constitutional general appearance Hygiene/Attention to Grooming: good hygiene 10/03/2014 None Full Exam - General 1994 Eyes conjunctiva /eyelids Overall: conjunctiva clear 10/03/2014 None Full Exam - General 1994 Eyes conjunctiva /eyelids Overall: cornea clear 10/03/2014 None Full Exam - General 1994 Eyes conjunctiva /eyelids Overall: eyelids normal 10/03/2014 None Full Exam - General 1994 Eyes pupils and irises Overall: pupils equal, round, reactive to light and accomodation 10/03/2014 None Full Exam - General 1994 Ears/Nose/Throat otoscopic exam Overall: external auditory canals clear 10/03/2014 None Full Exam - General 1994 Ears/Nose/Throat otoscopic exam Overall: tympanic membranes clear 10/03/2014 None Full Exam - General 1994 Ears/Nose/Throat lips/teeth/gingiva Overall: benign lips 10/03/2014 None Full Exam - General 1994 Ears/Nose/Throat lips/teeth/gingiva Overall: normal dentition 10/03/2014 None Full Exam - General 1994 Ears/Nose/Throat oral cavity/pharynx/larynx Overall: oral mucosa clear 10/03/2014 None Full Exam - General 1994 Ears/Nose/Throat oral cavity/pharynx/larynx Overall: oropharyngeal mucosa clear 10/03/2014 None Full Exam - General 1994 Ears/Nose/Throat oral cavity/pharynx/larynx Overall: hypopharynx benign 10/03/2014 None Full Exam - General 1994 Ears/Nose/Throat oral cavity/pharynx/larynx Overall: no masses 10/03/2014 None Full Exam - General 1994 Respiratory auscultation Overall: breath sounds clear bilaterally 10/03/2014 None Full Exam - General 1994 Respiratory respiratory effort/rhythm Overall: no retractions 10/03/2014 None Full Exam - General 1994 Respiratory respiratory effort/rhythm Overall: normal rate 10/03/2014 None Full Exam - General 1994 Cardiovascular extremities Overall: no clubbing 10/03/2014 None Full Exam - General 1994 Cardiovascular auscultation of heart Overall: regular rate 10/03/2014 None Full Exam - General 1994 Cardiovascular auscultation of heart Overall: normal heart sounds 10/03/2014 None Full Exam - General 1994 Abdomen abdominal exam Overall: no tenderness 10/03/2014 None Full Exam - General 1994 Abdomen abdominal exam Overall: normal bowel sounds 10/03/2014 None Full Exam - General 1994 Lymphatic neck nodes Overall: anterior cervical chain benign 10/03/2014 None Full Exam - General 1994 Lymphatic neck nodes Overall: posterior cervical chain benign 10/03/2014 None Full Exam - General 1994 Musculoskeletal spine, ribs and pelvis Overall: spine benign 10/03/2014 None Full Exam - General 1994 Musculoskeletal spine, ribs and pelvis Overall: sacroiliac joint benign 10/03/2014 None Full Exam - General 1994 Musculoskeletal spine, ribs and pelvis Overall: good posture 10/03/2014 None Full Exam - General 1994 Musculoskeletal head and neck Overall: head atraumatic 10/03/2014 None Full Exam - General 1994 Musculoskeletal head and neck Overall: cervical spine benign 10/03/2014 None Full Exam - General 1994 Integument inspection of skin Overall: few scattered moles, no gross abnormalities 10/03/2014 None Full Exam - General 1994 Neurologic deep tendon reflexes Overall: deep tendon reflexes intact 10/03/2014 None Full Exam - General 1994 Neurologic cranial nerves Overall: crainial nerves 2 - 12 grossly intact 10/03/2014 None Full Exam - General 1994 Psychiatric orientation/consciousness Overall: oriented to person, place and time 10/03/2014 None Full Exam - General 1994 Psychiatric mood and affect Overall: normal mood and affect 10/03/2014 None Procedures Procedure Codes Date 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 AND 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 3-[address]: 279530769 CPT-4: G0436 12/24/2016 URINALYSIS NONAUTO W/O SCOPE CPT-4: 56444 12/24/2016 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 AND ALIGNER 3-[address]: 994262561 CPT-4: G0436 06/29/2016 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 AND ALIGNER 3-[address]: 995595136 CPT-4: G0436 09/09/2015 TRIAMCINOLONE ACET INJ NOS CPT-4: J3301 09/04/2015 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 AND ALIGNER 3-[address]: 843281955 CPT-4: G0436 07/08/2015 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 AND ALIGNER 3-[address]: 775268514 CPT-4: G0436 05/19/2015 Vital Signs Date Vital 02/02/2018 Blood Pressure 1: 160/80 Code : 8480-6 BMI: 52.9 Code : 36100-8 Heart Rate 1 : 82 bpm Height: 5'4" SpO2: 93% Weight: 308 lbs 01/11/2018 Height: Weight: 09/20/2017 Heart Rate 1: 86 bpm Height: SpO2: 98% Weight: 01/24/2017 Blood Pressure 1: 142/80 Code : 8480-6 BMI: 52.2 Code : 80004-5 Heart Rate 1 : 75 bpm Height: 5'4" SpO2: 94% Weight: 304 lbs 12/13/2016 Blood Pressure 1: 132/74 Code : 8480-6 BMI: 51.8 Code : 17398-7 Heart Rate 1 : 73 bpm Height: 5'4" SpO2: 98% Weight: 302 lbs 11/23/2016 Blood Pressure 1: 136/80 Code : 8480-6 BMI: 52.5 Code : 89864-5 Heart Rate 1 : 76 bpm Height: 5'4" SpO2: 97% Weight: 306 lbs 08/17/2016 Blood Pressure 1: 138/80 Code : 8480-6 BMI: 52.5 Code : 78845-2 Heart Rate 1 : 73 bpm Height: 5'4" SpO2: 97% Weight: 306 lbs 06/29/2016 Blood Pressure 1: 136/78 Code : 8480-6 BMI: 51.5 Code : 38104-9 Heart Rate 1 : 83 bpm Height: 5'4" SpO2: 98% Weight: 300 lbs 06/07/2016 Blood Pressure 1: 136/72 Code : 8480-6 BMI: 51.2 Code : 62457-0 Heart Rate 1 : 82 bpm Height: 5'4" SpO2: 95% Weight: 298 lbs 05/17/2016 Blood Pressure 1: 140/90 Code : 8480-6 BMI: 51.7 Code : 97125-3 Heart Rate 1 : 90 bpm Height: 5'4" SpO2: 97% Weight: 301 lbs 04/27/2016 Blood Pressure 1: 130/72 Code : 8480-6 Heart Rate 1: 77 bpm SpO2: 98% Weight: 302 lbs 03/18/2016 Blood Pressure 1: 130/60 Code : 8480-6 BMI: 52.4 Code : 00281-3 Heart Rate 1 : 80 bpm Height: 5'4" SpO2: 92% Weight: 305 lbs 09/09/2015 Blood Pressure 1: 146/78 Code : 8480-6 BMI: 53.4 Code : 57717-8 Heart Rate 1 : 82 bpm Height: 5'4" SpO2: 92% Weight: 311 lbs 09/04/2015 Blood Pressure 1: 160/74 Code : 8480-6 BMI: 54.6 Code : 65561-4 Heart Rate 1 : 88 bpm Height: 5'4" SpO2: 95% SpO2: 83% Weight: 318 lbs 07/08/2015 Blood Pressure 1: 150/82 Code : 8480-6 BMI: 53.7 Code : 51413-0 Heart Rate 1 : 84 bpm Height: 5'4" SpO2: 95% Weight: 313 lbs 05/19/2015 Blood Pressure 1: 132/70 Code : 8480-6 BMI: 53.7 Code : 18284-4 Heart Rate 1 : 83 bpm Height: 5'4" SpO2: 97% Weight: 313 lbs 03/31/2015 Blood Pressure 1: 138/86 Code : 8480-6 BMI: 53.1 Code : 02445-6 Heart Rate 1 : 79 bpm Height: 5'4" SpO2: 95% Weight: 309 lbs 8 oz 02/03/2015 Blood Pressure 1: 146/80 Code : 8480-6 BMI: 53.2 Code : 62508-4 Heart Rate 1 : 80 bpm Height: 5'4" SpO2: 98% Weight: 310 lbs 12/31/2014 Blood Pressure 1: 140/78 Code : 8480-6 BMI: 51.4 Code : 31559-7 Heart Rate 1 : 81 bpm Height: 5'4" SpO2: 95% Weight: 299 lbs 5 oz 10/03/2014 Blood Pressure 1: 140/84 Code : 8480-6 Heart Rate 1: 84 bpm Respiratory Rate : 20 bpm SpO2: 96% Weight: 310 lbs Functional Status No Functional Status data History of Present Illness Symptom Name Status Result Effective Date Notes hypertension Onset and Resolution ongoing 02/02/2018 None hypertension Onset of Symptom during adulthood 02/02/2018 None hypertension Alleviating Factors medication 02/02/2018 None hypertension Pertinent Findings decreased energy 02/02/2018 None hypertension Pertinent Findings edema 02/02/2018 None diabetes mellitus Quality non-insulin dependent 02/02/2018 None diabetes mellitus Alleviating Factors medication 02/02/2018 None diabetes mellitus Exacerbating Factors diet 02/02/2018 None hypertension Blood Pressure Values patient checking blood pressure at home - did not bring in readings 02/02/2018 None sores Location-Head/Neck on the left cheek 01/11/2018 lower eyelid sores Quality acute None sores Color erythematous 01/11/2018 None sores Onset and Resolution ongoing 01/11/2018 None sores Onset of Symptom 2 months ago 01/11/2018 None sores Pertinent Findings pain 01/11/2018 None sores Pertinent Findings Denies fever 01/11/2018 None hypertension Onset and Resolution ongoing 09/20/2017 None hypertension Onset of Symptom during adulthood 09/20/2017 None hypertension Alleviating Factors medication 09/20/2017 None hypertension Pertinent Findings decreased energy 09/20/2017 None hypertension Pertinent Findings edema 09/20/2017 None diabetes mellitus Quality non-insulin dependent 09/20/2017 None diabetes mellitus Alleviating Factors medication 09/20/2017 None diabetes mellitus Exacerbating Factors diet 09/20/2017 None obesity Location diffusely 09/20/2017 None obesity Quality chronic 09/20/2017 None obesity Onset and Resolution gradual in onset 09/20/2017 None obesity Onset and Resolution ongoing 09/20/2017 None obesity Alleviating Factors healthy food choices 09/20/2017 None obesity Alleviating Factors healthy lifestyle 09/20/2017 None obesity Exacerbating Factors poor food choices 09/20/2017 None obesity Exacerbating Factors inactivity 09/20/2017 None neck pain Location on the right 09/20/2017 None neck pain Quality acute 09/20/2017 None neck pain Quality burning 09/20/2017 None neck pain Quality sharp 09/20/2017 None neck pain Onset and Resolution sudden in onset 09/20/2017 None neck pain Onset of Symptom months ago 09/20/2017 None medication follow up Additional Comments medication use 01/24/2017 None medication follow up Location oral intake 01/24/2017 reveiw her meds. medication follow up side effect Other: palpitations 01/24/2017 None hypertension Onset and Resolution ongoing 12/13/2016 None hypertension Onset of Symptom during adulthood 12/13/2016 None hypertension Alleviating Factors medication 12/13/2016 None hypertension Pertinent Findings decreased energy 12/13/2016 None hypertension Pertinent Findings edema 12/13/2016 None hypertension Pertinent Findings tachycardia 12/13/2016 -She did have an episode last week diabetes mellitus Quality non-insulin dependent 12/13/2016 None diabetes mellitus Alleviating Factors medication 12/13/2016 None diabetes mellitus Exacerbating Factors diet 12/13/2016 None obesity Location diffusely 12/13/2016 None obesity Quality chronic 12/13/2016 None obesity Onset and Resolution gradual in onset 12/13/2016 None obesity Onset and Resolution ongoing 12/13/2016 None obesity Alleviating Factors healthy food choices 12/13/2016 None obesity Alleviating Factors healthy lifestyle 12/13/2016 None obesity Exacerbating Factors poor food choices 12/13/2016 None obesity Exacerbating Factors inactivity 12/13/2016 None neck pain Location on the right 12/13/2016 None neck pain Quality acute 12/13/2016 None neck pain Quality burning 12/13/2016 None neck pain Quality sharp 12/13/2016 None neck pain Onset and Resolution sudden in onset 12/13/2016 None neck pain Onset of Symptom months ago 12/13/2016 None skin lesion Onset and Resolution sudden in onset 11/23/2016 None skin lesion Onset of Symptom 1 months ago 11/23/2016 None skin lesion Frequency of Episodes daily 11/23/2016 None skin lesion Quality firm 11/23/2016 None skin lesion Quality raised 11/23/2016 None skin lesion Location finger and/or fingers of left hand 11/23/2016 None skin lesion Location finger and/or fingers of right hand 11/23/2016 None hypertension Onset and Resolution ongoing 08/17/2016 None hypertension Onset of Symptom during adulthood 08/17/2016 None hypertension Alleviating Factors medication 08/17/2016 None diabetes mellitus Quality non-insulin dependent 08/17/2016 None diabetes mellitus Alleviating Factors medication 08/17/2016 None diabetes mellitus Exacerbating Factors diet 08/17/2016 None obesity Location diffusely 08/17/2016 None obesity Quality chronic 08/17/2016 None obesity Onset and Resolution gradual in onset 08/17/2016 None obesity Onset and Resolution ongoing 08/17/2016 None obesity Alleviating Factors healthy food choices 08/17/2016 None obesity Alleviating Factors healthy lifestyle 08/17/2016 None neck pain Location on the right 08/17/2016 None neck pain Quality acute 08/17/2016 None neck pain Quality sharp 08/17/2016 None neck pain Onset and Resolution sudden in onset 08/17/2016 None obesity Exacerbating Factors poor food choices 08/17/2016 None obesity Exacerbating Factors inactivity 08/17/2016 None hypertension Pertinent Findings edema 08/17/2016 None hypertension Pertinent Findings tachycardia 08/17/2016 -She did have an episode last week hypertension Pertinent Findings decreased energy 08/17/2016 None neck pain Quality burning 08/17/2016 None neck pain Onset of Symptom months ago 08/17/2016 None constipation Quality intermittent diarrhea 06/29/2016 None constipation Onset and Resolution ongoing 06/29/2016 None hypertension Onset and Resolution ongoing 06/29/2016 None hypertension Onset of Symptom during adulthood 06/29/2016 None hypertension Alleviating Factors medication 06/29/2016 None diabetes mellitus Quality non-insulin dependent 06/29/2016 None diabetes mellitus Alleviating Factors medication 06/29/2016 None diabetes mellitus Exacerbating Factors diet 06/29/2016 None obesity Location diffusely 06/29/2016 None obesity Quality chronic 06/29/2016 None obesity Onset and Resolution gradual in onset 06/29/2016 None obesity Onset and Resolution ongoing 06/29/2016 None obesity Alleviating Factors healthy food choices 06/29/2016 None obesity Alleviating Factors healthy lifestyle 06/29/2016 None mole check Location-Major on the upper body 06/29/2016 None mole check Location-Trunk on the right side of the chest 06/29/2016 None mole check Location-Trunk on the left side of the abdomen 06/29/2016 None diabetes mellitus Test results Pt not checking blood glucose readings at home 06/29/2016 None neck pain Quality acute 06/29/2016 None neck pain Onset and Resolution sudden in onset 06/29/2016 None neck pain Location on the right 06/29/2016 None neck pain Quality sharp 06/29/2016 None neck pain Quality constant 06/29/2016 None neck pain Onset of Symptom 2 months ago 06/29/2016 None sinus congestion Location frontal sinuses 06/07/2016 None sinus congestion Location maxillary sinuses 06/07/2016 None sinus congestion Location on both sides 06/07/2016 None sinus congestion Quality acute 06/07/2016 None sinus congestion Quality pain 06/07/2016 None sinus congestion Quality pressure 06/07/2016 None sinus congestion Onset and Resolution sudden in onset 06/07/2016 None sinus congestion Pertinent Findings decreased energy level 06/07/2016 None sinus congestion Pertinent Findings fever 06/07/2016 None earache Location both ears 06/07/2016 None earache Quality acute 06/07/2016 None earache Onset and Resolution sudden in onset 06/07/2016 None neck pain Location diffusely 06/07/2016 None neck pain Quality constant 06/07/2016 None neck pain Onset and Resolution sudden in onset 06/07/2016 None sinus congestion Location maxillary sinuses 05/17/2016 None sinus congestion Location frontal sinuses 05/17/2016 None sinus congestion Location on both sides 05/17/2016 None sinus congestion Quality acute 05/17/2016 None sinus congestion Quality pain 05/17/2016 None sinus congestion Quality pressure 05/17/2016 None sinus congestion Onset and Resolution sudden in onset 05/17/2016 None sinus congestion Pertinent Findings fever 05/17/2016 None sinus congestion Pertinent Findings decreased energy level 05/17/2016 None earache Location both ears 05/17/2016 None earache Quality acute 05/17/2016 None earache Onset and Resolution sudden in onset 05/17/2016 None fatigue Limitation on Activities is incapacitating 04/27/2016 None fatigue Frequency of Episodes increasing 04/27/2016 None fatigue Triggers exertion 04/27/2016 None fatigue Alleviating Factors rest 04/27/2016 None fatigue Pertinent Findings Denies fever 04/27/2016 None myalgias Location diffusely 04/27/2016 None myalgias Quality acute 04/27/2016 None myalgias Quality cramping 04/27/2016 None myalgias Pertinent Findings Denies fever 04/27/2016 None myalgias Pertinent Findings Denies warmth 04/27/2016 None cough Location in the lung 03/18/2016 None cough Onset and Resolution sudden in onset 03/18/2016 None cough Onset of Symptom 1 days ago 03/18/2016 None cough Frequency of Episodes daily 03/18/2016 None back pain Location diffusely 09/09/2015 None back pain Quality burning 09/09/2015 None back pain Quality chronic 09/09/2015 None back pain Quality numbness 09/09/2015 None back pain Onset and Resolution ongoing 09/09/2015 None back pain Limitation on Activities moderately limits activities 09/09/2015 at times back pain Frequency of Episodes increasing 09/09/2015 None back pain Frequency of Episodes on and off 09/09/2015 None back pain 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 Triggers twisting 09/09/2015 None back pain Triggers activity 09/09/2015 None back pain Triggers exertion 09/09/2015 None back pain Triggers position change 09/09/2015 None back pain Exacerbating Factors activity 09/09/2015 None back pain Exacerbating Factors position change 09/09/2015 None back pain Exacerbating Factors heat 09/09/2015 None back pain Exacerbating Factors physical therapy 09/09/2015 None back pain Initial treatment injections 09/09/2015 None back pain Initial treatment medication 09/09/2015 None hyperlipidemia Onset and Resolution ongoing 09/09/2015 None hyperlipidemia Onset of Symptom during adulthood 09/09/2015 None hyperlipidemia Frequency of Episodes unchanged 09/09/2015 None hyperlipidemia Significant Medical Conditions obesity 09/09/2015 None hyperlipidemia Triggers no known associated factors 09/09/2015 None hyperlipidemia Exacerbating Factors diet 09/09/2015 None hyperlipidemia Pertinent Findings insulin resistance 09/09/2015 None hyperlipidemia Pertinent Findings obesity 09/09/2015 None hyperlipidemia Quality increased TG 09/09/2015 None obesity Location diffusely 09/09/2015 None obesity Quality chronic 09/09/2015 None obesity Onset and Resolution gradual in onset 09/09/2015 None obesity Frequency of Episodes unchanged 09/09/2015 None obesity Significant Family History obesity 09/09/2015 None obesity Triggers no known associated factors 09/09/2015 None neck pain Location on the right 09/09/2015 None neck pain Onset and Resolution ongoing 09/09/2015 None cough Location in the lung 09/04/2015 None cough Quality constant 09/04/2015 None cough Quality hacking 09/04/2015 None cough Quality productive 09/04/2015 None cough Onset and Resolution sudden in onset 09/04/2015 None cough Onset of Symptom 1 weeks ago 09/04/2015 None cough Frequency of Episodes daily 09/04/2015 None cough Pertinent Findings chest discomfort 09/04/2015 None cough Pertinent Findings fever 09/04/2015 None cough Pertinent Findings hoarseness 09/04/2015 None cough Pertinent Findings nasal congestion 09/04/2015 None sinus congestion Location on both sides 09/04/2015 None sinus congestion Quality fullness 09/04/2015 None sinus congestion Onset and Resolution sudden in onset 09/04/2015 None sinus congestion Onset of Symptom 1 weeks ago 09/04/2015 None chest congestion Quality constant 09/04/2015 None chest congestion Onset and Resolution sudden in onset 09/04/2015 None chest congestion Onset of Symptom 1 weeks ago 09/04/2015 None chest congestion Pertinent Findings cough 09/04/2015 None chest congestion Pertinent Findings fever 09/04/2015 None chest congestion Pertinent Findings nasal congestion 09/04/2015 None chest congestion Pertinent Findings sinus congestion 09/04/2015 None chest congestion Pertinent Findings sputum production 09/04/2015 None back pain Location diffusely 07/08/2015 None back pain Quality burning 07/08/2015 None back pain Quality chronic 07/08/2015 None back pain Quality numbness 07/08/2015 None back pain Onset and Resolution ongoing 07/08/2015 None back pain Limitation on Activities moderately limits activities 07/08/2015 at times back pain Frequency of Episodes increasing 07/08/2015 None back pain Frequency of Episodes on and off 07/08/2015 None back pain 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 Triggers twisting 07/08/2015 None back pain Triggers activity 07/08/2015 None back pain Triggers exertion 07/08/2015 None back pain Triggers position change 07/08/2015 None back pain Exacerbating Factors activity 07/08/2015 None back pain Exacerbating Factors position change 07/08/2015 None back pain Exacerbating Factors heat 07/08/2015 None back pain Exacerbating Factors physical therapy 07/08/2015 None back pain Initial treatment injections 07/08/2015 None back pain Initial treatment medication 07/08/2015 None hyperlipidemia Onset and Resolution ongoing 07/08/2015 None hyperlipidemia Onset of Symptom during adulthood 07/08/2015 None hyperlipidemia Frequency of Episodes unchanged 07/08/2015 None hyperlipidemia Significant Medical Conditions obesity 07/08/2015 None hyperlipidemia Triggers no known associated factors 07/08/2015 None hyperlipidemia Exacerbating Factors diet 07/08/2015 None hyperlipidemia Pertinent Findings insulin resistance 07/08/2015 None hyperlipidemia Pertinent Findings obesity 07/08/2015 None hyperlipidemia Quality increased TG 07/08/2015 None obesity Location diffusely 07/08/2015 None obesity Quality chronic 07/08/2015 None obesity Onset and Resolution gradual in onset 07/08/2015 None obesity Frequency of Episodes unchanged 07/08/2015 None obesity Significant Family History obesity 07/08/2015 None obesity Triggers no known associated factors 07/08/2015 None neck pain Location on the right 07/08/2015 None neck pain Onset and Resolution ongoing 07/08/2015 None neck pain Onset of Symptom _ months ago 07/08/2015 In May back pain Location diffusely 05/19/2015 None back pain Quality burning 05/19/2015 None back pain Quality chronic 05/19/2015 None back pain Quality numbness 05/19/2015 None back pain Onset and Resolution ongoing 05/19/2015 None back pain Limitation on Activities moderately limits activities 05/19/2015 at times back pain Frequency of Episodes increasing 05/19/2015 None back pain Frequency of Episodes on and off 05/19/2015 None back pain 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 Triggers twisting 05/19/2015 None back pain Triggers activity 05/19/2015 None back pain Triggers exertion 05/19/2015 None back pain Triggers position change 05/19/2015 None back pain Exacerbating Factors activity 05/19/2015 None back pain Exacerbating Factors position change 05/19/2015 None back pain Exacerbating Factors heat 05/19/2015 None back pain Exacerbating Factors physical therapy 05/19/2015 None back pain Initial treatment injections 05/19/2015 None back pain Initial treatment medication 05/19/2015 None hyperlipidemia Onset and Resolution ongoing 05/19/2015 None hyperlipidemia Onset of Symptom during adulthood 05/19/2015 None hyperlipidemia Frequency of Episodes unchanged 05/19/2015 None hyperlipidemia Significant Medical Conditions obesity 05/19/2015 None hyperlipidemia Triggers no known associated factors 05/19/2015 None hyperlipidemia Exacerbating Factors diet 05/19/2015 None hyperlipidemia Pertinent Findings insulin resistance 05/19/2015 None hyperlipidemia Pertinent Findings obesity 05/19/2015 None hyperlipidemia Quality increased TG 05/19/2015 None obesity Location diffusely 05/19/2015 None obesity Quality chronic 05/19/2015 None obesity Onset and Resolution gradual in onset 05/19/2015 None obesity Frequency of Episodes unchanged 05/19/2015 None obesity Significant Family History obesity 05/19/2015 None obesity Triggers no known associated factors 05/19/2015 None neck pain Location on the right 05/19/2015 None neck pain Onset and Resolution ongoing 05/19/2015 None neck pain Onset of Symptom _ months ago 05/19/2015 In August back pain Location diffusely 03/31/2015 None back pain Onset and Resolution ongoing 03/31/2015 None back pain Limitation on Activities moderately limits activities 03/31/2015 at times back pain Frequency of Episodes increasing 03/31/2015 None back pain Frequency of Episodes on and off 03/31/2015 None back pain 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 Triggers twisting 03/31/2015 None back pain Triggers activity 03/31/2015 None back pain Triggers exertion 03/31/2015 None back pain Triggers position change 03/31/2015 None back pain Exacerbating Factors activity 03/31/2015 None back pain Exacerbating Factors position change 03/31/2015 None back pain Exacerbating Factors heat 03/31/2015 None back pain Exacerbating Factors physical therapy 03/31/2015 None back pain Initial treatment injections 03/31/2015 None back pain Initial treatment medication 03/31/2015 None hyperlipidemia Frequency of Episodes unchanged 03/31/2015 None hyperlipidemia Significant Medical Conditions obesity 03/31/2015 None hyperlipidemia Triggers no known associated factors 03/31/2015 None hyperlipidemia Exacerbating Factors diet 03/31/2015 None hyperlipidemia Pertinent Findings insulin resistance 03/31/2015 None hyperlipidemia Pertinent Findings obesity 03/31/2015 None hyperlipidemia Quality increased TG 03/31/2015 None obesity Location diffusely 03/31/2015 None obesity Quality chronic 03/31/2015 None obesity Onset and Resolution gradual in onset 03/31/2015 None obesity Frequency of Episodes unchanged 03/31/2015 None obesity Significant Family History obesity 03/31/2015 None obesity Triggers no known associated factors 03/31/2015 None back pain Quality chronic 03/31/2015 None back pain Quality numbness 03/31/2015 None back pain Quality burning 03/31/2015 None neck pain Onset of Symptom _ months ago 03/31/2015 In August neck pain Location on the right 03/31/2015 None neck pain Onset and Resolution ongoing 03/31/2015 None hyperlipidemia Onset and Resolution ongoing 03/31/2015 None hyperlipidemia Onset of Symptom during adulthood 03/31/2015 None back pain Location diffusely 02/03/2015 None back pain Location in the right upper back area 02/03/2015 None back pain Quality aching 02/03/2015 None back pain Onset and Resolution ongoing 02/03/2015 None back pain Limitation on Activities moderately limits activities 02/03/2015 at times back pain Frequency of Episodes increasing 02/03/2015 None back pain Frequency of Episodes on and off 02/03/2015 None back pain 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 Triggers twisting 02/03/2015 None back pain Triggers activity 02/03/2015 None back pain Triggers exertion 02/03/2015 None back pain Triggers position change 02/03/2015 None back pain Exacerbating Factors activity 02/03/2015 None back pain Exacerbating Factors position change 02/03/2015 None back pain Exacerbating Factors physical therapy 02/03/2015 None back pain Exacerbating Factors heat 02/03/2015 None back pain Initial treatment injections 02/03/2015 None back pain Location diffusely 12/31/2014 None back pain Location in the right upper back area 12/31/2014 None back pain Quality aching 12/31/2014 None back pain Onset and Resolution ongoing 12/31/2014 None back pain Limitation on Activities moderately limits activities 12/31/2014 at times back pain Frequency of Episodes increasing 12/31/2014 None back pain Frequency of Episodes on and off 12/31/2014 None back pain 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 Triggers twisting 12/31/2014 None back pain Triggers activity 12/31/2014 None back pain Triggers exertion 12/31/2014 None back pain Triggers position change 12/31/2014 None back pain Exacerbating Factors activity 12/31/2014 None back pain Exacerbating Factors position change 12/31/2014 None back pain Exacerbating Factors heat 12/31/2014 None back pain Exacerbating Factors physical therapy 12/31/2014 None back pain Initial treatment injections 12/31/2014 None back pain Initial treatment medication 12/31/2014 None hyperlipidemia Severity moderate 12/31/2014 None hyperlipidemia Frequency of Episodes unchanged 12/31/2014 None hyperlipidemia Significant Medical Conditions obesity 12/31/2014 None hyperlipidemia Triggers no known associated factors 12/31/2014 None hyperlipidemia Exacerbating Factors diet 12/31/2014 None hyperlipidemia Pertinent Findings insulin resistance 12/31/2014 None hyperlipidemia Pertinent Findings obesity 12/31/2014 None hyperlipidemia Quality increased TG 12/31/2014 None obesity Location diffusely 12/31/2014 None obesity Quality chronic 12/31/2014 None obesity Onset and Resolution gradual in onset 12/31/2014 None obesity Severity moderate 12/31/2014 None obesity Frequency of Episodes unchanged 12/31/2014 None obesity Significant Family History obesity 12/31/2014 None obesity Triggers no known associated factors 12/31/2014 None back pain Location diffusely 10/03/2014 None back pain Location in the right upper back area 10/03/2014 None back pain Quality aching 10/03/2014 None back pain Onset and Resolution ongoing 10/03/2014 None back pain Limitation on Activities moderately limits activities 10/03/2014 at times back pain Frequency of Episodes increasing 10/03/2014 None back pain Frequency of Episodes on and off 10/03/2014 None back pain Triggers position change 10/03/2014 None back pain Triggers exertion 10/03/2014 None back pain Triggers activity 10/03/2014 None back pain Triggers twisting 10/03/2014 None back pain 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 Exacerbating Factors activity 10/03/2014 None back pain Exacerbating Factors position change 10/03/2014 None back pain Exacerbating Factors heat 10/03/2014 None back pain Exacerbating Factors physical therapy 10/03/2014 None back pain Initial treatment medication 10/03/2014 None back pain Initial treatment injections 10/03/2014 None hyperlipidemia Severity moderate 10/03/2014 None hyperlipidemia Frequency of Episodes unchanged 10/03/2014 None hyperlipidemia Significant Medical Conditions obesity 10/03/2014 None hyperlipidemia Triggers no known associated factors 10/03/2014 None hyperlipidemia Exacerbating Factors diet 10/03/2014 None hyperlipidemia Pertinent Findings insulin resistance 10/03/2014 None hyperlipidemia Pertinent Findings obesity 10/03/2014 None hyperlipidemia Quality increased TG 10/03/2014 None obesity Location diffusely 10/03/2014 None obesity Quality chronic 10/03/2014 None obesity Onset and Resolution gradual in onset 10/03/2014 None obesity Severity moderate 10/03/2014 None obesity Frequency of Episodes unchanged 10/03/2014 None obesity Significant Family History obesity 10/03/2014 None obesity Triggers no known associated factors 10/03/2014 None Advance Directives No Advance Directive data Encounters Encounter Performer Location Codes Date ([id number]) [id number] EST. PATIENT, LEVEL IV Diagnosis: Type 2 diabetes mellitus with hyperglycemia[ICD10: E11.65] Diagnosis: Morbid (severe) obesity due to excess calories[ICD10: E66.01] Diagnosis: Essential (primary) hypertension[ICD10: I10] Diagnosis: Palpitations[ICD10: R00.2] Diagnosis: Muscle spasm of back[ICD10: M62.830] Diagnosis: Mixed hyperlipidemia[ICD10: E78.2] Soledad Romero MD, [facility] CPT-4: 88296 02/02/2018 62467 EST. PATIENT, LEVEL IV Diagnosis: Abscess of left lower eyelid[ICD10: H00.035] Diagnosis: Localized edema[ICD10: R60.0] Diagnosis: Other insomnia[ICD10: G47.09] Kelsie Romero MD, [facility] CPT-4 : 96460 01/11/2018 73410 EST. PATIENT, LEVEL IV Diagnosis: Type 2 diabetes mellitus with hyperglycemia[ICD10: E11.65] Diagnosis: Essential (primary) hypertension[ICD10: I10] Diagnosis: Muscle spasm of back[ICD10: M62.830] Diagnosis: Radiculopathy, cervicothoracic region[ICD10: M54.13] Kelsie Romero MD, [facility] CPT-4: 99018 09/20/2017 [id number] EST. PATIENT, LEVEL III Diagnosis: Essential (primary) hypertension[ICD10: I10] Diagnosis: Palpitations[ICD10: R00.2] Kelsie Romero MD, [facility] CPT-4 : 97845 01/24/2017 ([id number]) 79492 EST. PATIENT, LEVEL IV Diagnosis: Type 2 diabetes mellitus with hyperglycemia[ICD10: E11.65] Diagnosis: Essential (primary) hypertension[ICD10: I10] Soledad Romero MD, [facility] CPT-4: 86488 12/13/2016 65438 EST. PATIENT, LEVEL III Diagnosis: Rash and other nonspecific skin eruption[ICD10: R21] Diagnosis: Dyshidrosis [pompholyx][ICD10: L30.1] Kelsie Romero MD, [facility] CPT-4: 74077 11/23/2016 ([id number]) 80573 EST. PATIENT, LEVEL IV Diagnosis: Type 2 diabetes mellitus with hyperglycemia[ICD10: E11.65] Diagnosis: Essential (primary) hypertension[ICD10: I10] Soledad Romero MD, [facility] CPT-4: 12974 08/17/2016 ([id number]) 02505 EST. PATIENT, LEVEL IV Diagnosis: Type 2 diabetes mellitus with hyperglycemia[ICD10: E11.65] Diagnosis: Essential (primary) hypertension[ICD10: I10] Diagnosis: Tobacco use[ICD10: Z72.0] Soledad Romero MD, [facility] CPT-4: 43974 06/29/2016 88106 EST. PATIENT, LEVEL IV Diagnosis: Acute laryngopharyngitis[ICD10: J06.0] Diagnosis: Other allergic rhinitis[ICD10: J30.89] Diagnosis: Myalgia[ICD10: M79.1] Kelsie Romero MD, [facility] CPT-4: 71908 06/07/2016 78738 EST. PATIENT, LEVEL IV Diagnosis: Other acute sinusitis[ICD10: J01.80] Diagnosis: Other allergic rhinitis[ICD10: J30.89] Kelsie Romero MD, [facility] CPT-4: 10664 05/17/2016 60718 EST. PATIENT, LEVEL IV Diagnosis: Type 2 diabetes mellitus with hyperglycemia[ICD10: E11.65] Diagnosis: Essential (primary) hypertension[ICD10: I10] Diagnosis: Other muscle spasm[ICD10: M62.838] Diagnosis: Morbid (severe) obesity due to excess calories[ICD10: E66.01] Kelsie Romero MD , [facility] CPT-4: 48936 04/27/2016 40078 EST. PATIENT, LEVEL III Diagnosis: Morbid (severe) obesity due to excess calories[ICD10: E66.01] Diagnosis: Acute laryngopharyngitis[ICD10: J06.0] Diagnosis: Cough[ICD10: R05] Kelsie Romero MD, [facility] CPT-4: 27631 03/18/2016 66107 EST. PATIENT, LEVEL IV Diagnosis: Essential (primary) hypertension[ICD10: I10] Diagnosis: Radiculopathy, cervicothoracic region[ICD10: M54.13] Diagnosis: Spinal stenosis, lumbar region[ICD10: M48.06] Diagnosis: Rash and other nonspecific skin eruption[ICD10: R21] Diagnosis: Morbid (severe) obesity due to excess calories[ICD10: E66.01] Diagnosis: Tobacco use[ICD10: Z72.0] Kelsie Romero MD, [facility] CPT-4: 55718 09/09/2015 49146 EST. PATIENT, LEVEL IV Diagnosis: Acute laryngopharyngitis[ICD10: J06.0] Diagnosis: Wheezing[ICD10: R06.2] Diagnosis: Shortness of breath[ICD10: R06.02] Kelsie Romero MD, [facility] CPT-4: 61835 09/04/2015 ([id number]) 13550 EST. PATIENT, LEVEL IV Diagnosis: Essential (primary) hypertension[ICD10: I10] Diagnosis: Morbid (severe) obesity due to excess calories[ICD10: E66.01] Diagnosis: Tobacco use[ICD10: Z72.0] Soledad Romero MD, [facility] CPT-4: 24285 07/08/2015 ([id number]) 78632 EST. PATIENT, LEVEL IV Diagnosis: Type 2 diabetes mellitus with hyperglycemia[ICD10: E11.65] Diagnosis: Spinal stenosis, lumbar region[ICD10: M48.06] Diagnosis: Morbid (severe) obesity due to excess calories[ICD10: E66.01] Diagnosis: Tobacco use[ICD10: Z72.0] Soledad Romero MD, [facility] CPT-4: 60187 05/19/2015 ([id number]) 64688 EST. PATIENT, LEVEL III Diagnosis: Radiculopathy, cervicothoracic region[ICD10: M54.13] Diagnosis: Spinal stenosis, lumbar region[ICD10: M48.06] Diagnosis: Type 2 diabetes mellitus with hyperglycemia[ICD10: E11.65] Soledad Romero MD , [facility] CPT-4: 42879 03/31/2015 ([id number]) 55710 EST. PATIENT, LEVEL III Diagnosis: Spinal stenosis, lumbar region[ICD10: M48.06] Soledad Romero MD, [facility] CPT-4: 10579 02/03/2015 ([id number]) 33523 EST. PATIENT, LEVEL IV Diagnosis: DIABETES TYPE II[ICD9: 250.00] Diagnosis: ESSENTIAL HYPERTENSION[ICD9: 401.9] Diagnosis: Neck pain[ICD9: 723.1] Diagnosis: Muscle spasms of neck[ICD9: 728.85] Diagnosis: Abdominal cramping[ICD9: 789.00] [facility] CPT-4: 50362 12/31/2014 ([id number]) PREV VISIT NEW AGE 40-64 Diagnosis: Routine medical exam[ICD9: V70.0] [facility] CPT-4: 96428 10/03/2014 Plan of Care Planned Activity Notes Codes Status Date Patient Education: Patient Medication Summary Completed 03/31/2018 Care Plan: Urine Culture if indicated Pending 03/31/2018 Care Plan: Referral Order SNOMED-CT : [id number] Pending 02/03/2018 Visit Plan: Hypertension - uncontrolled - the patient's medications have been modified as documented in the visit note. The patient has been counseled to cut back on salt in diet for a no added salt diet, low fat diet, start an exercise program with low weight bearing exercises and higher aerobic activity for heart health. The patient is to check blood pressure readings as an outpatient and either fax, call, or email the readings to the office next week for practitioner to review. The pt is to call for acute concerns. Increase Losartan to 100mg daily. Diabetes Mellitus - Unsure of level of control, check Hgba1c. I have recommended for the patient to have follow up labs prior to the next office visit. The patient has been instructed to continue with current medications as previously directed, continue with regular FSBS monitoring to assure continued control of diabetes. Pt to call for any acute concerns, complaints, or if the blood glucose readings are starting to become less controlled. I have recommended for the patient to follow more strictly to the diabetic diet as discussed in clinic to allow for greater blood glucose control. History of Palpitaitons with PSVT's - I have recommended pt to have evaluation by industrial relations specialist - Dr. Young. She needs stress testing due to her multiple comorbid conditions - htn, hyperlipidemia, dm, obesity. Hyperlipidemia - pt stopped the trilipix that was previously prescribed because she did not think that she had any refills left and did not call the office to check about refilled - she had 3 refills and we were going to repeat labs. Check lipid panel. Chronic back pain with muscle spasms - refill skelaxin. 02/02/2018 Visit Plan: Hypertension - uncontrolled - the patient's medications have been modified as documented in the visit note. The patient has been counseled to cut back on salt in diet for a no added salt diet, low fat diet, start an exercise program with low weight bearing exercises and higher aerobic activity for heart health. The patient is to check blood pressure readings as an outpatient and either fax, call, or email the readings to the office next week for practitioner to review. The pt is to call for acute concerns. Increase Losartan to 100mg daily. Diabetes Mellitus - Unsure of level of control, check Hgba1c. I have recommended for the patient to have follow up labs prior to the next office visit. The patient has been instructed to continue with current medications as previously directed, continue with regular FSBS monitoring to assure continued control of diabetes. Pt to call for any acute concerns, complaints, or if the blood glucose readings are starting to become less controlled. I have recommended for the patient to follow more strictly to the diabetic diet as discussed in clinic to allow for greater blood glucose control. History of Palpitaitons with PSVT's - I have recommended pt to have evaluation by industrial relations specialist - Dr. Young. She needs stress testing due to her multiple comorbid conditions - htn, hyperlipidemia, dm, obesity. Hyperlipidemia - pt stopped the trilipix that was previously prescribed because she did not think that she had any refills left and did not call the office to check about refilled - she had 3 refills and we were going to repeat labs. Check lipid panel. Chronic back pain with muscle spasms - refill skelaxin. 02/02/2018 Appointment: Soledad Romero WPtel: [address] [place], [place] [id number] (15 min) Moderate 02/02/2018 Patient Education: Patient Medication Summary Completed 02/02/2018 Patient Education: Hypertension Completed 02/02/2018 Patient Education: Cholesterol Management Completed 02/02/2018 Visit Plan: Sore to left lower eye lid - ongoing x 2 months - discussed with Dr. Romero - will order swab and start on valacyclovir - pt is to notify clinic if symptoms do not improve, if they worsen , or with any changes, questions, or concerns. Edema - pt has been advised to elevate legs to prevent dependent edema, compression has been recommended to help to naturally decrease peripheral edema. Diuretic use has been discussed and pt has been instructed in appropriate use of such medication as necessary to further attempt to reduce peripheral edema. Insomnia - Pt has been advised to increase the light in the house during the day, and start dimming the lights during the evening hours. Pt has been advised to cut out caffeine after 5pm. Daytime napping worsens night time insomnia. 01/11/2018 Appointment: Kelsie Burt WPtel: [phone] [facility] [address] (30 min) Complex 01/11/2018 Patient Education: Patient Medication Summary Completed 01/11/2018 Care Plan: C VIRUS Pending 01/11/2018 Visit Plan: Hypertension - well controlled - continue with current medications, continue with no added salt diet. Pt has been encouraged to exercise daily. The pt has been advised to call the office if there are any acute concerns about change in blood pressure readings at home. Diabetes Mellitus - controlled - per recent FSBS reports. I have recommended for the patient to have follow up labs prior to the next office visit. The patient has been instructed to continue with current medications as previously directed, continue with regular FSBS monitoring to assure continued control of diabetes. Pt to call for any acute concerns, complaints, or if the blood glucose readings are starting to become less controlled. Chronic Back pain - the patient was counseled to always first attempt to use modalities other than pain medication for alleviation of the muscle spasms and pain. The patient was also encouraged to continue with back exercises as previously directed. Pt is to use pain medication as directed. If pain medications are used inappropriately or early refills are requested, the patient understands that is a breech of trust/ contract and could result in the patient's termination from this medical practice. 09/20/2017 Appointment: [facility]urt [facility] [phone] [id number] [place] (30 min) Complex 09/20/2017 Patient Education: Patient Medication Summary Completed 09/20/2017 Appointment: [facility] [phone] [id number] (15 min) Moderate 04/05/2017 Visit Plan: Hypertension - uncontrolled - the patient's medications have been modified as documented in the visit note. The patient has been counseled to cut back on salt in diet for a no added salt diet, low fat diet, start an exercise program with low weight bearing exercises and higher aerobic activity for heart health. The patient is to check blood pressure readings as an outpatient and either fax, call, or email the readings to the office next week for practitioner to review. The pt is to call for acute concerns. Palpitations - intermittent - pt thinks it is a drug interaction, but is unsure of the cause - pt is to write down what she is doing and what she has taken when she feels the palpitations - pt is to notify clinic if symptoms do not improve, if they worsen, or with any changes, questions, or concerns. 01/24/2017 Appointment: [facility] Burt [facility] [phone] [facility] [id number] (30 min) Complex 01/24/2017 Patient Education: Patient Medication Summary Completed 01/24/2017 Patient Education: Smoking and Tobacco Addiction Completed 01/24/2017 Patient Education: Obesity Completed 01/24/2017 Patient Education: Hypertension Completed 01/24/2017 Appointment: Nurse Visit 12/24/2016 Patient Education: Patient Medication Summary Completed 12/24/2016 Patient Education: Smoking and Tobacco Addiction Completed 12/24/2016 Visit Plan: Diabetes Mellitus - has not been controlled - Pt has not been taking her metformin as directed due to diarrhea - I have changed her metformin to long acting medication. I have recommended for the patient to have follow up labs prior to the next office visit. The patient has been instructed to continue with current medications as previously directed, continue with regular FSBS monitoring to assure continued control of diabetes. Pt to call for any acute concerns, complaints, or if the blood glucose readings are starting to become less controlled. Hypertension - well controlled - continue with current medications, continue with no added salt diet. Pt has been encouraged to exercise daily. The pt has been advised to call the office if there are any acute concerns about change in blood pressure readings at home. Pt has not gotten labs done as directed. Patient is to have the labs done tomorrow as directed so that we can more appropriately manage the patient's chronic medical disease. 12/13/2016 Appointment: [facility]ad [facility]ero [id number] ([facility] min[facility] Complex 12/13/2016 Patient Education: Patient Medication Summary Completed 12/13/2016 Patient Education: Smoking and Tobacco Addiction Completed 12/13/2016 Patient Education: Obesity Completed 12/13/2016 Patient Education: Hypertension Completed 12/13/2016 Care Plan: Cbc With Differential Pending 12/13/2016 Care Plan: %Hba1C LOINC : 30760-5 Pending 12/13/2016 Care Plan: Lipid Pending 12/13/2016 Care Plan: Tsh Pending 12/13/2016 Care Plan: Microalbumin Pending 12/13/2016 Care Plan: Comp Metabolic Pending 12/13/2016 Visit Plan: Rash and dyshydrosis - Pt is to keep her dermatology appointment - The patient was instructed to use the ointment as per RX. The patient is to call for any change in symptoms, increase in size of the lesion, increase in pain, redness, warmth, discharge. 11/23/2016 Appointment: [facility]urt [id number] ([facility]) Complex 11/23/2016 Patient Education: Patient Medication Summary Completed 11/23/2016 Patient Education: Smoking and Tobacco Addiction Completed 11/23/2016 Patient Education: Obesity Completed 11/23/2016 Visit Plan: Hypertension - well controlled - continue with current medications, continue with no added salt diet. Pt has been encouraged to exercise daily. The pt has been advised to call the office if there are any acute concerns about change in blood pressure readings at home. Diabetes Mellitus - Uncontrolled - per recent FSBS reports. I have recommended for the patient to have follow up labs prior to the next office visit. The patient has been instructed to continue with current medications as previously directed, continue with regular FSBS monitoring to assure continued control of diabetes. Pt to call for any acute concerns, complaints, or if the blood glucose readings are starting to become less controlled. I have recommended for the patient to follow more strictly to the diabetic diet as discussed in clinic to allow for greater blood glucose control. 08/17/2016 Appointment: [id number] ([facility] Complex 08/17/2016 Patient Education: Patient Medication Summary Completed 08/17/2016 Patient Education: Smoking and Tobacco Addiction Completed 08/17/2016 Patient Education: Obesity Completed 08/17/2016 Patient Education: Hypertension Completed 08/17/2016 Appointment: Soledad Romero WPtel: [facility] ([facility] [place]) Complex 07/29/2016 Visit Plan: Hypertension - uncontrolled - the patient's medications have been modified as documented in the visit note. The patient has been counseled to cut back on salt in diet for a no added salt diet, low fat diet, start an exercise program with low weight bearing exercises and higher aerobic activity for heart health. The patient is to check blood pressure readings as an outpatient and either fax, call, or email the readings to the office next week for practitioner to review. The pt is to call for acute concerns. Diabetes Mellitus - controlled - per recent FSBS reports. I have recommended for the patient to have follow up labs prior to the next office visit. The patient has been instructed to continue with current medications as previously directed, continue with regular FSBS monitoring to assure continued control of diabetes. Pt to call for any acute concerns, complaints, or if the blood glucose readings are starting to become less controlled. Discussed pts need to stop smoking - continue to cut back tobacco use. 06/29/2016 Appointment: Soledad Romero WPtel: [id number] (15 min) Moderate 06/29/2016 Patient Education: Patient Medication Summary Completed 06/29/2016 Patient Education: Smoking and Tobacco Addiction Completed 06/29/2016 Patient Education: Obesity Completed 06/29/2016 Patient Education: Hypertension Completed 06/29/2016 Visit Plan: URI - Pt advised to increase fluids, vitamin C. Discussed natural and expected course of this diagnosis and need to alert me if symptoms do not follow expected course, or if any worse. RX sent to patient' s pharmacy. Allergies - chronic - recommended pt to use allergy medication as prescribed. Pt has been counseled as to the appropriate use of the medication. Pt to call if allergy symptoms are not controlled with the medication. If using nasal spray, instructions as follows: Nasal spray- use twice daily, one spray per nostril twice daily, after 30 minutes, rinse out nose with saline spray.. Use opposite hand per nostril to spray in the nasal steroid allergy spray. Myalgias - will have pt stop her statin, notify clinic if symptoms do not improve, if they worsen, or with any questions or concerns. 06/07/2016 Appointment: Kelsie Burt WPtel: 101[address] [facility] [address] (30 min) Complex 06/07/2016 Patient Education: Patient Medication Summary Completed 06/07/2016 Patient Education: Obesity Completed 06/07/2016 Visit Plan: Sinusitis - Pt has acute infection - pain in face, maxillary region, Pt informed to use decongestant, RX given to patient, sinus rinses also recommended. Call if symptoms do not show improvement. Allergies - chronic - recommended pt to use allergy medication as prescribed. Pt has been counseled as to the appropriate use of the medication. Pt to call if allergy symptoms are not controlled with the medication. If using nasal spray , instructions as follows: Nasal spray- use twice daily, one spray per nostril twice daily, after 30 minutes, rinse out nose with saline spray.. Use opposite hand per nostril to spray in the nasal steroid allergy spray. 05/17/2016 Patient Education: Patient Medication Summary Completed 05/17/2016 Visit Plan: Myalgias and fatigue - Stop statin medication - will check labs, treat as indicated - pt is to notify clinic if symptoms do not improve, if they worsen, or with any questions or concerns. Hypertension- continue with current medications, continue with no added salt diet. Pt has been encouraged to exercise daily. The pt has been advised to call the office if there are any acute concerns about change in blood pressure readings at home. Diabetes Mellitus - I have recommended for the patient to have follow up labs prior to the next office visit. The patient has been instructed to continue with current medications as previously directed, continue with regular FSBS monitoring to assure continued control of diabetes. Pt to call for any acute concerns, complaints, or if the blood glucose readings are starting to become less controlled. I have recommended for the patient to follow more strictly to the diabetic diet as discussed in clinic to allow for greater blood glucose control. 04/27/2016 Appointment: Kelsie Burt [facility]Ptel: [phone] ([facility] min) Complex 04/27/2016 Patient Education: Patient Medication Summary Completed 04/27/2016 Patient Education: Smoking and Tobacco Addiction Completed 04/27/2016 Patient Education: Obesity Completed 04/27/2016 Appointment: Kelsie Burt [facility]Ptel: [phone] (30 min) Complex 04/22/2016 Visit Plan: Pt states that she just had neck surgery yesterday in [place] - today she is complaining of a cough and worried about it getting worse because she just had the surgery - Pt advised to increase fluids, vitamin C. Discussed natural and expected course of this diagnosis and need to alert me if symptoms do not follow expected course, or if any worse. RX sent to patient's pharmacy. 03/18/2016 Appointment: Kelsie Burt WPtel: [facility] (30 min) Complex 03/18/2016 Patient Education: Patient Medication Summary Completed 03/18/2016 Patient Education: Smoking and Tobacco Addiction Completed 03/18/2016 Patient Education: Obesity Completed 03/18/2016 Appointment: Sola Gustafson [facility]el: [id number] (30 min) Complex 10/21/2015 Care Plan: BMI Above normal followup SELF-MGMT EDUC & TRAIN 1 PT Pending 2015 Visit Plan: Hypertension - continue with current medications, continue with no added salt diet. Pt has been encouraged to exercise daily. The pt has been advised to call the office if there are any acute concerns about change in blood pressure readings at home. Obesity - chronic issue with this patient. The pt has been counseled about diet changes, calorie restriction, and need to exercise. Pt will RTC in one month for weight check. Low back pain- the patient was instructed in appropriate posture, need for weight loss to alleviate abdominal obesity that is worsening the patient's back pain.. The pt is to use prn antiinflammatories to manage acute pain. The patient is to call the office if the pain is worsening or does not improve. Tobacco abuse - chronic condition for this patient. Patient has been counseled about need to stop smoking due to the negative health affects. Pt has vocalized understanding and states that they will consider smoking cessation, but the pt is not yet ready to use medication to assist cessation. Rash - The patient was instructed in appropriate care. The patient was instructed to use ointment as per RX. The patient is to call for any change in symptoms, increase in size of the lesion, increase in pain. 09/09/2015 Appointment: (15 min) Moderate 09/09/2015 Patient Education: Patient Medication Summary Completed 09/09/2015 Patient Education: Smoking and Tobacco Addiction Completed 09/09/2015 Patient Education: Obesity Completed 09/09/2015 Patient Education: Hypertension Completed 09/09/2015 Patient Education: .Cervicalgia Neck Pain Completed 09/09/2015 Care Plan: BMI Above normal followup SELF-MGMT EDUC & TRAIN 1 PT Pending 2015 Visit Plan: URI - Pt advised to increase fluids, vitamin C. Discussed natural and expected course of this diagnosis and need to alert me if symptoms do not follow expected course, or if any worse. RX sent to patient' s pharmacy. Allergies - chronic - recommended pt to use allergy medication as prescribed. Pt has been counseled as to the appropriate use of the medication. Pt to call if allergy symptoms are not controlled with the medication. If using nasal spray, instructions as follows: Nasal spray- use twice daily, one spray per nostril twice daily, after 30 minutes, rinse out nose with saline spray.. Use opposite hand per nostril to spray in the nasal steroid allergy spray. 09/04/2015 Appointment: Kelsie Burt WPtel: [facility] (15 min) Moderate 09/04/2015 Patient Education: Patient Medication Summary Completed 09/04/2015 Patient Education: Smoking and Tobacco Addiction Completed 09/04/2015 Patient Education: Obesity Completed 09/04/2015 Visit Plan: Hypertension - well controlled - continue with current medications, continue with no added salt diet. Pt has been encouraged to exercise daily. The pt has been advised to call the office if there are any acute concerns about change in blood pressure readings at home. Obesity - chronic issue with this patient. The pt has been counseled about diet changes, calorie restriction, and need to exercise. Pt will RTC in one month for weight check. Tobacco abuse - chronic condition for this patient. Patient has been counseled about need to stop smoking due to the negative health affects. Pt has vocalized understanding and states that they will consider smoking cessation, but the pt is not yet ready to use medication to assist cessation. 07/08/2015 Appointment: Soledad Romero WPtel: [phone] [facility] (15 min) Moderate 07/08/2015 Patient Education: Patient Medication Summary Completed 07/08/2015 Patient Education: Smoking and Tobacco Addiction Completed 07/08/2015 Patient Education: Obesity Completed 07/08/2015 Patient Education: Hypertension Completed 07/08/2015 Visit Plan: Diabetes Mellitus - Uncontrolled - per recent FSBS reports. I have recommended for the patient to have follow up labs prior to the next office visit. The patient has been instructed to continue with current medications as previously directed, continue with regular FSBS monitoring to assure continued control of diabetes. Pt to call for any acute concerns, complaints, or if the blood glucose readings are starting to become less controlled. I have recommended for the patient to follow more strictly to the diabetic diet as discussed in clinic to allow for greater blood glucose control. Obesity - chronic issue with this patient. The pt has been counseled about diet changes, calorie restriction, and need to exercise. Pt will RTC in one month for weight check. Pt to start on contrave - rx given to patient today. Spinal stenosis - agree with recommendations from [facility] states for surgery of cervical spine. 05/19/2015 Appointment: [facility]ed[facility] Romero [facility]el: [phone] (15 min) Moderate 05/19/2015 Patient Education: Patient Medication Summary Completed 05/19/2015 Patient Education: Smoking and Tobacco Addiction Completed 05/19/2015 Visit Plan: Cervicothoracic pain - - she states that the gabapentin causes her to feel groggy the next morning - but it does help her nerve pain. She is worried about the planned evaluation of the back and neck by the neurosurgeon - she is wanting her lower back fixed first because she cannot move well and cannot loose weight because she has numbness in her legs in the evening. Diabetes Mellitus - Uncontrolled - per recent FSBS reports. I have recommended for the patient to have follow up labs prior to the next office visit. The patient has been instructed to continue with current medications as previously directed, continue with regular FSBS monitoring to assure continued control of diabetes. Pt to call for any acute concerns, complaints, or if the blood glucose readings are starting to become less controlled. I have recommended for the patient to follow more strictly to the diabetic diet as discussed in clinic to allow for greater blood glucose control. 03/31/2015 Appointment: Soledad Romero WPtel: [facility] [facility] [place] (15 min) Moderate 03/31/2015 Patient Education: Patient Medication Summary Completed 03/31/2015 Patient Education: Hypertension Completed 03/31/2015 Patient Education: .Cervicalgia Neck Pain Completed 03/31/2015 Appointment: Soledad Romero WPtel: [phone] [facility] [place] (15 min) Moderate 03/10/2015 Visit Plan: Cervical spine stenosis - recommended pt to have an evaluation with Neurosurgery for possible surgical intervention. Po for MRI of lumbar spine. 02/03/2015 Appointment: Soledad Romero WPtel: 1015 [facility] [place] (15 min) Moderate 02/03/2015 Patient Education: Patient Medication Summary Completed 02/03/2015 Visit Plan: Diabetes Mellitus - controlled - per her report - however she stopped taking the medication due to cramping/spasms of her abdomen. I have recommended restarting the medication and call if her stomach starts cramping. If she has trouble with the metformin, we will have to consider starting januvia or invokana for control of her diabetes. Hyperlipidemia - pt stopped her cholesterol medication due to cramping/spasms - the patient stopped her lipitor. The patient will restart the lipitor if she has problems with cramping again - she needs to call the office. Neck pain - chronic - referral to Dr. Hassan at for evaluation as the patient has not really had any relief from the steroid injections and she continues to have discomfort despite use of gabapentin and naproxen. 12/31/2014 Appointment: Soledad Romero WPtel: [address] [facility] [place] (15 min) Moderate 12/31/2014 Patient Education: Patient Medication Summary Completed 12/31/2014 Patient Education: Hypertension Completed 12/31/2014 Patient Education: .Cervicalgia Neck Pain Completed 12/31/2014 Visit Plan: Well Adult - pt was counseled about diet, exercise, and encouraged to follow a heart healthy diet and increase activity level. The patient was instructed to RTC yearly for well adult exams and PRN for acute illnesses. The pt was also instructed to have yearly labs for check of cholesterol, thyroid, chem panel, CBC, and renal functioning. Low back pain- the patient was instructed in appropriate posture, need for weight loss to alleviate abdominal obesity that is worsening the patient's back pain.. The pt is to use prn antiinflammatories to manage acute pain. The patient is to call the office if the pain is worsening or does not improve. 10/03/2014 Appointment: Soledad Romero WPtel: [facility] New Patient 10/03/2014 Patient Education: Patient Medication Summary Completed 10/03/2014 Referral: External, Ordering Provider Referral Completed Referral: [facility] Referral Appointment Requested Referral: External, Ordering Provider Referral Appointment Requested Instructions Comment Stop lipitor - start on co enzyme q 10 Will check labs - electrolytes and UA today in office. Check blood pressures and heart rate at home, write them down, and let me know how they are doing. . Myalgias and fatigue - Stop statin medication - will check labs, treat as indicated - pt is to notify clinic if symptoms do not improve, if they worsen, or with any questions or concerns. Hypertension- continue with current medications, continue with no added salt diet. Pt has been encouraged to exercise daily. The pt has been advised to call the office if there are any acute concerns about change in blood pressure readings at home. Diabetes Mellitus - I have recommended for the patient to have follow up labs prior to the next office visit. The patient has been instructed to continue with current medications as previously directed, continue with regular FSBS monitoring to assure continued control of diabetes. Pt to call for any acute concerns, complaints, or if the blood glucose readings are starting to become less controlled. I have recommended for the patient to follow more strictly to the diabetic diet as discussed in clinic to allow for greater blood glucose control. . Diabetes Mellitus - controlled - per her report - however she stopped taking the medication due to cramping/spasms of her abdomen. I have recommended restarting the medication and call if her stomach starts cramping. If she has trouble with the metformin, we will have to consider starting januvia or invokana for control of her diabetes. Hyperlipidemia - pt stopped her cholesterol medication due to cramping/spasms - the patient stopped her lipitor. The patient will restart the lipitor if she has problems with cramping again - she needs to call the office. Neck pain - chronic - referral to Dr. Hassan at for evaluation as the patient has not really had any relief from the steroid injections and she continues to have discomfort despite use of gabapentin and naproxen. . Rash and dyshydrosis - Pt is to keep her dermatology appointment - The patient was instructed to use the ointment as per RX. The patient is to call for any change in symptoms, increase in size of the lesion, increase in pain, redness, warmth, discharge. . Hypertension - well controlled - continue with current medications, continue with no added salt diet. Pt has been encouraged to exercise daily. The pt has been advised to call the office if there are any acute concerns about change in blood pressure readings at home. Diabetes Mellitus - controlled - per recent FSBS reports. I have recommended for the patient to have follow up labs prior to the next office visit. The patient has been instructed to continue with current medications as previously directed, continue with regular FSBS monitoring to assure continued control of diabetes. Pt to call for any acute concerns, complaints, or if the blood glucose readings are starting to become less controlled. Chronic Back pain - the patient was counseled to always first attempt to use modalities other than pain medication for alleviation of the muscle spasms and pain. The patient was also encouraged to continue with back exercises as previously directed. Pt is to use pain medication as directed. If pain medications are used inappropriately or early refills are requested, the patient understands that is a breech of trust/contract and could result in the patient's termination from this medical practice. change the baclofen to bedtime and noon keep gabapentin first thing in morning and suppertime naproxen take in the morning and suppertime . Diabetes Mellitus - has not been controlled - Pt has not been taking her metformin as directed due to diarrhea - I have changed her metformin to long acting medication. I have recommended for the patient to have follow up labs prior to the next office visit. The patient has been instructed to continue with current medications as previously directed, continue with regular FSBS monitoring to assure continued control of diabetes. Pt to call for any acute concerns, complaints, or if the blood glucose readings are starting to become less controlled. Hypertension - well controlled - continue with current medications, continue with no added salt diet. Pt has been encouraged to exercise daily. The pt has been advised to call the office if there are any acute concerns about change in blood pressure readings at home. Pt has not gotten labs done as directed. Patient is to have the labs done tomorrow as directed so that we can more appropriately manage the patient's chronic medical disease. Contrave (wellbutrin/naloxone) - for weight loss and will help with smoking cessation . Diabetes Mellitus - Uncontrolled - per recent FSBS reports. I have recommended for the patient to have follow up labs prior to the next office visit. The patient has been instructed to continue with current medications as previously directed, continue with regular FSBS monitoring to assure continued control of diabetes. Pt to call for any acute concerns, complaints, or if the blood glucose readings are starting to become less controlled. I have recommended for the patient to follow more strictly to the diabetic diet as discussed in clinic to allow for greater blood glucose control. Obesity - chronic issue with this patient. The pt has been counseled about diet changes, calorie restriction, and need to exercise. Pt will RTC in one month for weight check. Pt to start on contrave - rx given to patient today. Spinal stenosis - agree with recommendations from [facility] for surgery of cervical spine. . Sore to left lower eye lid - ongoing x 2 months - discussed with Dr. Romero - will order swab and start on valacyclovir - pt is to notify clinic if symptoms do not improve, if they worsen, or with any changes , questions, or concerns. Edema - pt has been advised to elevate legs to prevent dependent edema, compression has been recommended to help to naturally decrease peripheral edema. Diuretic use has been discussed and pt has been instructed in appropriate use of such medication as necessary to further attempt to reduce peripheral edema. Insomnia - Pt has been advised to increase the light in the house during the day , and start dimming the lights during the evening hours. Pt has been advised to cut out caffeine after 5pm. Daytime napping worsens night time insomnia. . Well Adult - pt was counseled about diet, exercise, and encouraged to follow a heart healthy diet and increase activity level. The patient was instructed to RTC yearly for well adult exams and PRN for acute illnesses. The pt was also instructed to have yearly labs for check of cholesterol, thyroid, chem panel, CBC, and renal functioning. Low back pain- the patient was instructed in appropriate posture, need for weight loss to alleviate abdominal obesity that is worsening the patient's back pain.. The pt is to use prn antiinflammatories to manage acute pain. The patient is to call the office if the pain is worsening or does not improve. increase metformin to 1 pill in the morning and two pills at night. cut back on sugars and carbs. . Hypertension - well controlled - continue with current medications, continue with no added salt diet. Pt has been encouraged to exercise daily. The pt has been advised to call the office if there are any acute concerns about change in blood pressure readings at home. Diabetes Mellitus - Uncontrolled - per recent FSBS reports. I have recommended for the patient to have follow up labs prior to the next office visit. The patient has been instructed to continue with current medications as previously directed, continue with regular FSBS monitoring to assure continued control of diabetes. Pt to call for any acute concerns, complaints, or if the blood glucose readings are starting to become less controlled. I have recommended for the patient to follow more strictly to the diabetic diet as discussed in clinic to allow for greater blood glucose control. . Cervical spine stenosis - recommended pt to have an evaluation with Neurosurgery for possible surgical intervention. Po for MRI of lumbar spine. . Cervicothoracic pain - - she states that the gabapentin causes her to feel groggy the next morning - but it does help her nerve pain. She is worried about the planned evaluation of the back and neck by the neurosurgeon - she is wanting her lower back fixed first because she cannot move well and cannot loose weight because she has numbness in her legs in the evening. Diabetes Mellitus - Uncontrolled - per recent FSBS reports. I have recommended for the patient to have follow up labs prior to the next office visit. The patient has been instructed to continue with current medications as previously directed, continue with regular FSBS monitoring to assure continued control of diabetes. Pt to call for any acute concerns, complaints, or if the blood glucose readings are starting to become less controlled. I have recommended for the patient to follow more strictly to the diabetic diet as discussed in clinic to allow for greater blood glucose control. . Sinusitis - Pt has acute infection - pain in face, maxillary region, Pt informed to use decongestant, RX given to patient, sinus rinses also recommended. Call if symptoms do not show improvement. Allergies - chronic - recommended pt to use allergy medication as prescribed. Pt has been counseled as to the appropriate use of the medication. Pt to call if allergy symptoms are not controlled with the medication. If using nasal spray, instructions as follows: Nasal spray- use twice daily, one spray per nostril twice daily, after 30 minutes, rinse out nose with saline spray.. Use opposite hand per nostril to spray in the nasal steroid allergy spray. . URI - Pt advised to increase fluids, vitamin C. Discussed natural and expected course of this diagnosis and need to alert me if symptoms do not follow expected course, or if any worse. RX sent to patient's pharmacy. Allergies - chronic - recommended pt to use allergy medication as prescribed. Pt has been counseled as to the appropriate use of the medication. Pt to call if allergy symptoms are not controlled with the medication. If using nasal spray, instructions as follows: Nasal spray- use twice daily, one spray per nostril twice daily, after 30 minutes, rinse out nose with saline spray.. Use opposite hand per nostril to spray in the nasal steroid allergy spray. . Pt states that she just had neck surgery yesterday in [place] - today she is complaining of a cough and worried about it getting worse because she just had the surgery - Pt advised to increase fluids, vitamin C. Discussed natural and expected course of this diagnosis and need to alert me if symptoms do not follow expected course, or if any worse. RX sent to patient's pharmacy. . Hypertension - continue with current medications, continue with no added salt diet. Pt has been encouraged to exercise daily. The pt has been advised to call the office if there are any acute concerns about change in blood pressure readings at home. Obesity - chronic issue with this patient. The pt has been counseled about diet changes, calorie restriction, and need to exercise. Pt will RTC in one month for weight check. Low back pain- the patient was instructed in appropriate posture, need for weight loss to alleviate abdominal obesity that is worsening the patient's back pain.. The pt is to use prn antiinflammatories to manage acute pain. The patient is to call the office if the pain is worsening or does not improve. Tobacco abuse - chronic condition for this patient. Patient has been counseled about need to stop smoking due to the negative health affects. Pt has vocalized understanding and states that they will consider smoking cessation, but the pt is not yet ready to use medication to assist cessation. Rash - The patient was instructed in appropriate care. The patient was instructed to use ointment as per RX. The patient is to call for any change in symptoms, increase in size of the lesion, increase in pain. change contrave to one pill in morning, one pill at noon and one pill at supper . Hypertension - well controlled - continue with current medications, continue with no added salt diet. Pt has been encouraged to exercise daily. The pt has been advised to call the office if there are any acute concerns about change in blood pressure readings at home. Obesity - chronic issue with this patient. The pt has been counseled about diet changes, calorie restriction, and need to exercise. Pt will RTC in one month for weight check. Tobacco abuse - chronic condition for this patient. Patient has been counseled about need to stop smoking due to the negative health affects. Pt has vocalized understanding and states that they will consider smoking cessation, but the pt is not yet ready to use medication to assist cessation. restart losartan for blood pressure . Hypertension - uncontrolled - the patient's medications have been modified as documented in the visit note. The patient has been counseled to cut back on salt in diet for a no added salt diet, low fat diet, start an exercise program with low weight bearing exercises and higher aerobic activity for heart health. The patient is to check blood pressure readings as an outpatient and either fax , call, or email the readings to the office next week for practitioner to review. The pt is to call for acute concerns. Diabetes Mellitus - controlled - per recent FSBS reports. I have recommended for the patient to have follow up labs prior to the next office visit. The patient has been instructed to continue with current medications as previously directed, continue with regular FSBS monitoring to assure continued control of diabetes. Pt to call for any acute concerns, complaints, or if the blood glucose readings are starting to become less controlled. Discussed pts need to stop smoking - continue to cut back tobacco use. . Hypertension - uncontrolled - the patient's medications have been modified as documented in the visit note. The patient has been counseled to cut back on salt in diet for a no added salt diet, low fat diet, start an exercise program with low weight bearing exercises and higher aerobic activity for heart health. The patient is to check blood pressure readings as an outpatient and either fax , call, or email the readings to the office next week for practitioner to review. The pt is to call for acute concerns. Palpitations - intermittent - pt thinks it is a drug interaction, but is unsure of the cause - pt is to write down what she is doing and what she has taken when she feels the palpitations - pt is to notify clinic if symptoms do not improve, if they worsen, or with any changes, questions, or concerns. . Hypertension - uncontrolled - the patient's medications have been modified as documented in the visit note. The patient has been counseled to cut back on salt in diet for a no added salt diet, low fat diet, start an exercise program with low weight bearing exercises and higher aerobic activity for heart health. The patient is to check blood pressure readings as an outpatient and either fax , call, or email the readings to the office next week for practitioner to review. The pt is to call for acute concerns. Increase Losartan to 100mg daily. Diabetes Mellitus - Unsure of level of control, check Hgba1c. I have recommended for the patient to have follow up labs prior to the next office visit. The patient has been instructed to continue with current medications as previously directed, continue with regular FSBS monitoring to assure continued control of diabetes. Pt to call for any acute concerns, complaints, or if the blood glucose readings are starting to become less controlled. I have recommended for the patient to follow more strictly to the diabetic diet as discussed in clinic to allow for greater blood glucose control. History of Palpitaitons with PSVT's - I have recommended pt to have evaluation by industrial relations specialist - Dr. Young. She needs stress testing due to her multiple comorbid conditions - htn, hyperlipidemia, dm, obesity. Hyperlipidemia - pt stopped the trilipix that was previously prescribed because she did not think that she had any refills left and did not call the office to check about refilled - she had 3 refills and we were going to repeat labs. Check lipid panel. Chronic back pain with muscle spasms - refill skelaxin. . Hypertension - uncontrolled - the patient's medications have been modified as documented in the visit note. The patient has been counseled to cut back on salt in diet for a no added salt diet, low fat diet, start an exercise program with low weight bearing exercises and higher aerobic activity for heart health. The patient is to check blood pressure readings as an outpatient and either fax , call, or email the readings to the office next week for practitioner to review. The pt is to call for acute concerns. Increase Losartan to 100mg daily. Diabetes Mellitus - Unsure of level of control, check Hgba1c. I have recommended for the patient to have follow up labs prior to the next office visit. The patient has been instructed to continue with current medications as previously directed, continue with regular FSBS monitoring to assure continued control of diabetes. Pt to call for any acute concerns, complaints, or if the blood glucose readings are starting to become less controlled. I have recommended for the patient to follow more strictly to the diabetic diet as discussed in clinic to allow for greater blood glucose control. History of Palpitaitons with PSVT's - I have recommended pt to have evaluation by industrial relations specialist - Dr. Young. She needs stress testing due to her multiple comorbid conditions - htn, hyperlipidemia, dm, obesity. Hyperlipidemia - pt stopped the trilipix that was previously prescribed because she did not think that she had any refills left and did not call the office to check about refilled - she had 3 refills and we were going to repeat labs. Check lipid panel. Chronic back pain with muscle spasms - refill skelaxin. Stop the atorvastatin, start the co Q 10. . URI - Pt advised to increase fluids, vitamin C. Discussed natural and expected course of this diagnosis and need to alert me if symptoms do not follow expected course, or if any worse. RX sent to patient's pharmacy. Allergies - chronic - recommended pt to use allergy medication as prescribed. Pt has been counseled as to the appropriate use of the medication. Pt to call if allergy symptoms are not controlled with the medication. If using nasal spray, instructions as follows: Nasal spray- use twice daily, one spray per nostril twice daily, after 30 minutes, rinse out nose with saline spray.. Use opposite hand per nostril to spray in the nasal steroid allergy spray. Myalgias - will have pt stop her statin, notify clinic if symptoms do not improve, if they worsen, or with any questions or concerns.
[2018-04-03 07:26] LABS: HEMOGLOBIN 13.6 G/DL (11.5-16.0); MEAN PLATELET VOLUME 9.5 FL (7.4-10.4); RED BLOOD COUNT 4.73 10^6/uL (4.35-5.85); RED CELL DISTRIBUTION WIDTH 14.7 % (10.0-14.5); WHITE BLOOD COUNT 9.1 10^3/uL (4.3-11.0)
--- OUTSIDE RECORDS SUMMARY | 2018-04-03 07:28 | XMS REPORT | CCD ---
Author Author [facility] Organization [facility] Address [address] [place] [address] Phone Care Team Providers Care Software Development Advisor Name Role Phone PP Unavailable CCM Unavailable Summary Purpose Interface Exchange Insurance Providers Payer name Policy type / Coverage type Covered constitution party ID Effective Begin Date Effective End Date Blue Cross Blue [facility] Blue Cross/Blue Shield [id number] Unknown Family history Father Diagnosis Age At Onset Stroke Unknown Osteoporosis Unknown Hypertension Unknown Hyperlipidemia Unknown Son Diagnosis Age At Onset defect Unknown Asthma Unknown Mother Diagnosis Age At Onset Stroke Unknown Hypertension Unknown Diabetes Unknown Osteoporosis Unknown Social History Social History Element Codes Description Effective Dates Marital status Unknown Alex 06/29/2016 Number of children Unknown 3 10/03/[address]: 52361442 Current every day smoker 10/03/2014 Number of years using tobacco Unknown 30 - 40 10/03/2014 Number of cigarettes/day Unknown 30 ( Pack and a half) 10/03/[address]: 853156890 Never drinks alcohol 10/03/2014 Allergies, Adverse Reactions, [...] Start Date Stop Date Status Fill Instructions metformin ER 500 mg tablet,extended release 24 hr RxNorm: 847668 4 Tablet(s) PO daily 02/02/2018 08/30/2018 Active Trilipix 135 mg capsule,delayed release RxNorm: 164842 1 Capsule(s) PO daily 02/02/2018 08/30/2018 Active losartan 100 mg tablet RxNorm: 111283 1 Tablet(s) PO daily TAKE 1 TABLET BY MOUTH DAILY 02/02/2018 07/31/2018 Active Skelaxin 800 mg tablet RxNorm: 579804 1 Tablet(s) PO TID 201706/01/2018 Active metformin ER 1,000 mg tablet,extended release 24hr RxNorm: 8368248 2 Tablet(s) PO daily 02/02/2018 02/01/2018 Inactive Levaquin 500 mg tablet RxNorm: 737132 1 Tablet(s) PO daily 01/19/2018 Inactive valacyclovir 1 gram tablet RxNorm: 233517 1 Tablet(s) PO TID 01/17/2018 Inactive furosemide 20 mg tablet RxNorm: 907683 TABLET(S) 1 TABLET(S) PO DAILY 12/08/2017 04/06/2018 Active losartan 50 mg tablet RxNorm: 792187 1 Tablet(s) PO daily TAKE 1 TABLET BY MOUTH DAILY 09/26/2017 02/01/2018 Inactive Skelaxin 800 mg tablet RxNorm: 204037 1 Tablet(s) PO TID 201710/19/2017 Inactive gabapentin 300 mg capsule RxNorm: 714096 1 Capsule(s) PO BID 10/15/2017 Inactive losartan 25 mg tablet RxNorm: 516514 TAKE 1 TABLET BY MOUTH DAILY 09/16/2017 09/25/2017 Inactive naproxen 500 mg tablet RxNorm: 870614 1 TABLET(S) PO BID 201711/21/2017 Inactive Tamiflu 75 mg capsule RxNorm: 926841 1 Capsule(s) PO BID 201706/26/2017 Inactive Levaquin 500 mg tablet RxNorm: 491864 1 Tablet(s) PO daily 03/201806/26/2017 Inactive Tamiflu 75 mg capsule RxNorm: 521593 1 Capsule(s) PO BID 201707/01/2017 Inactive Levaquin 500 mg tablet RxNorm: 855674 1 Tablet(s) PO daily 03/201807/03/2017 Inactive Keflex 500 mg capsule RxNorm: 827140 1 Capsule(s) PO TID 201612/30/2016 Inactive Keflex 500 mg capsule RxNorm: 096937 1 Capsule(s) PO TID 201612/23/2016 Inactive Trilipix 135 mg capsule,delayed release RxNorm: 057763 1 Capsule(s) PO daily 12/24/2016 03/23/2017 Inactive Trilipix 135 mg capsule,delayed release RxNorm: 428201 1 Capsule(s) PO daily 12/24/2016 12/23/2016 Inactive losartan 25 mg tablet RxNorm: 703609 2 Tablet(s) daily 201601/25/2017 Inactive metformin ER 1,000 mg tablet,extended release 24hr RxNorm: 6754226 1 Tablet(s) PO daily 12/13/2016 07/10/2017 Inactive furosemide 20 mg tablet RxNorm: 942124 TABLET(S) 1 TABLET(S) PO DAILY 12/03/2016 04/01/2017 Inactive triamcinolone acetonide 0.025 % topical cream RxNorm: 7431647 1 Application TOP BID 11/23/2016 No Stop Date Active losartan 25 mg tablet RxNorm: 302112 TAKE 1 TABLET BY MOUTH DAILY 11/09/2016 12/12/2016 Inactive metformin 500 mg tablet RxNorm: 380830 3 Tablet(s) PO UD 1 in the morning and two pills at night. 08/17/2016 12/12/2016 Inactive naproxen 500 mg tablet RxNorm: 681593 1 Tablet(s) PO BID 201611/29/2016 Inactive Keflex 500 mg capsule RxNorm: 351602 1 Capsule(s) PO BID 201606/16/2016 Inactive prednisone 10 mg tablet RxNorm: 766432 1 Tablet(s) PO UD 201611/18/2016 Inactive 6,5,4,3,2,1 albuterol sulfate 2.5 mg/3 mL (0.083 %) solution for nebulization RxNorm: 256115 3 Milliliter(s) INH Q4-6H as needed 05/19/2016 11/17/2016 Inactive Augmentin 500 mg-125 mg tablet RxNorm: 768171 1 Tablet(s) PO TID 05/17/2016 05/26/2016 Inactive hydrocodone 5 mg-acetaminophen 325 mg tablet RxNorm: 246665 Tablet(s) PO prescribed by ortho 04/19/2016 01/19/2017 Inactive furosemide 20 mg tablet RxNorm: 210839 Tablet(s) 1 TABLET(S) PO DAILY 03/24/2016 07/21/2016 Inactive metformin 500 mg tablet RxNorm: 744758 1 Tablet(s) PO BID 03/2407/21/2016 Inactive levofloxacin 500 mg tablet RxNorm: 776287 1 Tablet(s) PO daily 03/18/2016 05/03/2016 Inactive furosemide 20 mg tablet RxNorm: 461187 1 TABLET(S) PO DAILY 03/23/2016 Inactive Lipitor 10 mg tablet RxNorm: 379398 1 TABLET(S) PO QPM 201512/12/2016 Inactive betamethasone dipropionate 0.05 % topical cream RxNorm: 543241 1 Application TOP BID 09/09/2015 01/21/2017 Inactive prednisone 10 mg tablet RxNorm: 922182 Tablet(s) PO UD 201505/03/2016 Inactive 6,5,4,3,2,1 albuterol sulfate 2.5 mg/3 mL (0.083 %) solution for nebulization RxNorm: 635808 3 Milliliter(s) INH Q4-6H as needed 09/04/2015 05/18/2016 Inactive Kenalog 40 mg/mL suspension for injection RxNorm: 0490208 Milliliter(s) Inj 09/04/2015 09/04/2015 Inactive levofloxacin 500 mg tablet RxNorm: 951962 1 Tablet(s) PO daily 09/01/2015 03/17/2016 Inactive gabapentin 300 mg capsule RxNorm: 662716 1 Capsule(s) PO BID 09/15/2017 Inactive losartan 25 mg tablet RxNorm: 291626 1 Tablet(s) PO daily 201502/02/2016 Inactive Lipitor 10 mg tablet RxNorm: 030989 1 Tablet(s) PO QPM 201508/22/2015 Inactive furosemide 20 mg tablet RxNorm: 823385 1 Tablet(s) PO daily 04/201407/15/2015 Inactive metformin 500 mg tablet RxNorm: 578913 2 Tablet(s) PO BID 12/3104/29/2015 Inactive gabapentin 300 mg capsule RxNorm: 412397 1 Capsule(s) PO QHS 07/09/2015 Inactive Lipitor 10 mg tablet RxNorm: 744975 1 Tablet(s) PO QPM 201412/03/2014 Inactive metformin 500 mg tablet RxNorm: 866312 1/2 Tablet(s) PO QPM x1 week and then 1/2 tab bid x 1 week then 500mg 1 tab bid there after 12/04/2014 12/03/2014 Inactive metformin 500 mg tablet RxNorm: 009590 1/2 Tablet(s) PO QPM x1 week and then 1/2 tab bid x 1 week then 500mg 1 tab bid there after 12/04/2014 12/30/2014 Inactive Lipitor 10 mg tablet RxNorm: 199593 1 Tablet(s) PO QPM 201401/02/2015 Inactive ProAir HFA 90 mcg/actuation aerosol inhaler RxNorm: 4008264 INH as needed No Start Date Active coenzyme Q10 100 mg capsule RxNorm: 061239 1 Capsule(s) PO daily No Start Date Active Calcium RxNorm: 1 PO daily No Start Date Active melatonin 5 mg chewable tablet RxNorm: 0141404 2 Tablet(s) PO QHS No Start Date Active multivitamin with calcium carb and iron tablet RxNorm: 1 Tablet(s) PO daily No Start Date Active Shantelle-D 24 Hour oral RxNorm: 684192 oral No Start Date Active Refresh Dry Eye Therapy RxNorm: 675051 ophthalmic (eye) No Start Date Active gabapentin 300 mg capsule RxNorm: 482334 1 Capsule(s) PO daily No Start Date Active triamcinolone acetonide 0.025 % topical cream RxNorm: 4645762 1 Application TOP ordered by dermatolgy No Start Date Active naproxen 500 mg tablet RxNorm: 011347 1 Tablet(s) PO BID as needed No Start Date Active multivitamin capsule RxNorm: 1 Capsule(s) PO daily No Start Date Active amlodipine 5 mg tablet RxNorm: 257528 1 Tablet(s) PO daily No Start Date 12/12/2016 Inactive tramadol 50 mg tablet RxNorm: 382034 1 Tablet(s) PO Q4 PRN No Start Date 03/11/2015 Inactive naproxen 500 mg tablet RxNorm: 254458 1 Tablet(s) PO BID No Start Date 08/01/2016 Inactive clotrimazole-betamethasone 1 %-0.05 % topical cream RxNorm: 776185 1 Application TOP ordered by clinical physician assistant No Start Date 01/17/2018 Inactive baclofen 10 mg tablet RxNorm: 584195 1 Tablet(s) PO TID as needed muscle spasms No Start Date 01/16/2018 Inactive furosemide 20 mg tablet RxNorm: 836528 1 Tablet(s) PO daily No Start Date 03/17/2015 Inactive cyclobenzaprine 10 mg tablet RxNorm: 299096 1 Tablet(s) PO Q8 PRN No Start Date 07/09/2015 Inactive levofloxacin 500 mg tablet RxNorm: 182850 1 Tablet(s) PO daily No Start Date 12/30/2014 Inactive gabapentin 100 mg capsule RxNorm: 032818 1 Capsule(s) PO TID No Start Date 12/30/2014 Inactive potassium gluconate 550 mg (90 mg) tablet RxNorm: 6757644 oral No Start Date 12/12/2016 Inactive Vesicare 5 mg tablet RxNorm: 343667 1 Tablet(s) PO daily prescribed by Dr. Rm No Start Date 01/16/2018 Inactive Medication Administered Medication Codes Instructions Start Date Status Kenalog 40 mg/mL suspension for injection RxNorm: 8581274 Milliliter 09/04/2015 No longer Active Immunizations No [...] Item Item Code Result Date Comp Metabolic Mpq497 NA 138 mEq/L 03/31/2018 Comp Metabolic Cug098 K 4.2 mEq/L 03/31/2018 Comp Metabolic Wwk978 CL 99 mEq/L 03/31/2018 Comp Metabolic Ucb631 CO2 30.0 mEq/L 03/31/2018 Comp Metabolic Qqw206 ANION GAP 13 03/31/2018 Comp Metabolic Kmb949 GLUCOSE 142 mg/dL 03/31/2018 Comp Metabolic Nuk988 Creat 0.6 mg/dL 03/31/2018 Comp Metabolic Fxi733 eGFR 119 ml/min/1.73m2 03/31/2018 Comp Metabolic Exw788 BUN 12 mg/dL 03/31/2018 Comp Metabolic Gok144 B/C Ratio 21.4 Ratio 03/31/2018 Comp Metabolic Oun438 CALCIUM 9.3 mg/dL 03/31/2018 Comp Metabolic Ydl608 ALK PHOS 123 U/L 03/31/2018 Comp Metabolic Kcy278 AST(SGOT) 26 U/L 03/31/2018 Comp Metabolic Wjk890 ALT(SGPT) 26 U/L 03/31/2018 Comp Metabolic Oef995 BILI T 0.4 mg/dL 03/31/2018 Comp Metabolic Yqw801 ALBUMIN 3.9 g/dL 03/31/2018 Comp Metabolic Pja684 TPRO 7.0 g/dL 03/31/2018 Comp Metabolic Ueb080 GLOB 3.1 g/dL 03/31/2018 Comp Metabolic Dhq740 A/G Ratio 1.3 Ratio 03/31/2018 Comp Metabolic Cub313 Osmo 278 mOsmo 03/31/2018 Microalbumin Mix172 MicroAlb 6.2 mg/dL 03/31/2018 Cbc With Differential Ord2 WBC 11.64 K/ul 03/31/2018 Cbc With Differential Ord2 RBC 5.16 M/ul 03/31/2018 Cbc With Differential Ord2 HGB 15.0 g/dl 03/31/2018 Cbc With Differential Ord2 Neut% 60.2 % 03/31/2018 Cbc With Differential Ord2 HCT 45.0 % 03/31/2018 Cbc With Differential Ord2 Lymph% 31.5 % 03/31/2018 Cbc With Differential Ord2 MCV 87.2 fl 03/31/2018 Cbc With Differential Ord2 MCH 29.1 pg 03/31/2018 Cbc With Differential Ord2 [place]% 7.0 % 03/31/2018 Cbc With Differential Ord2 [...] 3.67 K/ul 03/31/2018 Cbc With Differential Ord2 [place] ABS# 0.8 K/ul 03/31/2018 Cbc With Differential Ord2 Eos ABS# 0.1 K/ul 03/31/2018 Cbc With Differential Ord2 Baso ABS# 0.0 K/ul 03/31/2018 %Hba1C Hkd836 % HbA1c 53342-8 7.9 % 03/31/2018 %Hba1C Jmi131 Gluc Ave 180 mg/dL 03/31/2018 Lipid Ord30 CHOL 154 mg/dL 03/31/2018 Lipid Ord30 HDL 38.0 mg/dl 03/31/2018 Lipid Ord30 TRIG 199 mg/dL 03/31/2018 Lipid Ord30 LDL 76 mg/dL 03/31/2018 Lipid Ord30 C/HDL 4.1 Ratio 03/31/2018 Tsh Ord6 TSH (3rd IS) 1.80 uIU/mL 03/31/2018 %Hba1C Qjx591 % HbA1c 99015-8 7.8 % 12/14/2016 %Hba1C Fgp651 Gluc Ave 177 mg/dL 12/14/2016 Microalbumin Gfx615 MicroAlb 2.4 mg/dL 12/14/2016 Lipid Ord30 CHOL [...] 29.6 pg 12/14/2016 Cbc With Differential Ord2 [place]% 6.5 % 12/14/2016 Cbc With Differential Ord2 [...] 3.88 K/ul 12/14/2016 Cbc With Differential Ord2 [place] ABS# 0.8 K/ul 12/14/2016 Cbc With Differential Ord2 Eos ABS# 0.1 K/ul 12/14/2016 Cbc With Differential Ord2 Baso ABS# 0.0 K/ul 12/14/2016 Tsh Ord6 hTSH II 2.18 uIU/mL 12/14/2016 Comp Metabolic Qrs365 NA 139 mEq/L 12/14/2016 Comp Metabolic Mbu709 K 4.2 mEq/L 12/14/2016 Comp Metabolic Arr306 CL 102 mEq/L 12/14/2016 Comp Metabolic Gdf919 CO2 25.0 mEq/L 12/14/2016 Comp Metabolic Axi483 ANION GAP 16 12/14/2016 Comp Metabolic Nck766 GLUCOSE 150 mg/dL 12/14/2016 Comp Metabolic Ohr229 Creat 0.5 mg/dL 12/14/2016 Comp Metabolic Xpj765 eGFR 124 ml/min/1.73m2 12/14/2016 Comp Metabolic Fla734 BUN 14 mg/dL 12/14/2016 Comp Metabolic Cxf229 B/C Ratio 25.9 Ratio 12/14/2016 Comp Metabolic Xon880 CALCIUM 9.2 mg/dL 12/14/2016 Comp Metabolic Zkh787 ALK PHOS 121 U/L 12/14/2016 Comp Metabolic Rfn408 AST(SGOT) 20 U/L 12/14/2016 Comp Metabolic Jdu420 ALT(SGPT) 22 U/L 12/14/2016 Comp Metabolic Qeq685 BILI T 0.3 mg/dL 12/14/2016 Comp Metabolic Zgw601 ALBUMIN 3.9 g/dL 12/14/2016 Comp Metabolic Xoc691 TPRO 6.8 g/dL 12/14/2016 Comp Metabolic Jjl919 GLOB 2.9 g/dL 12/14/2016 Comp Metabolic Jvk602 A/G Ratio 1.3 Ratio 12/14/2016 Comp Metabolic Eir872 Osmo 281 mOsmo 12/14/2016 Sed Rate Ord21 [...] 29.1 pg 04/27/2016 Cbc With Differential Ord2 [place]% 5.3 % 04/27/2016 Cbc With Differential Ord2 [...] 3.93 K/ul 04/27/2016 Cbc With Differential Ord2 [place] ABS# 0.6 K/ul 04/27/2016 Cbc With Differential Ord2 Eos ABS# 0.1 K/ul 04/27/2016 Cbc With Differential Ord2 Baso ABS# 0.0 K/ul 04/27/2016 Tsh Ord6 hTSH II 1.82 uIU/mL 04/27/2016 Comp Metabolic Iwv130 NA 136 mEq/L 04/27/2016 Comp Metabolic Wij062 K 3.9 mEq/L 04/27/2016 Comp Metabolic Scn607 CL 101 mEq/L 04/27/2016 Comp Metabolic Tfp904 CO2 25.0 mEq/L 04/27/2016 Comp Metabolic Las937 ANION GAP 14 04/27/2016 Comp Metabolic Zmj633 GLUCOSE 204 mg/dL 04/27/2016 Comp Metabolic Eqt923 Creat 0.6 mg/dL 04/27/2016 Comp Metabolic Tnl030 eGFR 104 ml/min/1.73m2 04/27/2016 Comp Metabolic Qfc727 BUN 13 mg/dL 04/27/2016 Comp Metabolic Llq038 B/C Ratio 20.6 Ratio 04/27/2016 Comp Metabolic Pul896 CALCIUM 9.0 mg/dL 04/27/2016 Comp Metabolic Oov973 ALK PHOS 119 U/L 04/27/2016 Comp Metabolic Ytg660 AST(SGOT) 13 U/L 04/27/2016 Comp Metabolic Riq333 ALT(SGPT) 12 U/L 04/27/2016 Comp Metabolic Ffk890 BILI T 0.3 mg/dL 04/27/2016 Comp Metabolic Wev563 ALBUMIN 3.9 g/dL 04/27/2016 Comp Metabolic Xud768 TPRO 6.8 g/dL 04/27/2016 Comp Metabolic Qvj677 GLOB 2.9 g/dL 04/27/2016 Comp Metabolic Xvr258 A/G Ratio 1.3 Ratio 04/27/2016 Comp Metabolic Tgh074 Osmo 278 mOsmo 04/27/2016 %Hba1C Rwa103 % HbA1c 16744-0 7.7 % 04/27/2016 %Hba1C Ttp915 Gluc Ave 174 mg/dL 04/27/2016 %Hba1C Xyl296 % HbA1c 42804-4 7.4 % 03/31/2015 %Hba1C Hex604 Gluc Ave 166 mg/dL 03/31/2015 Folate Ord36 [...] Differential Ord2 RDW 15.7 % 11/26/2014 B12 Vpr457 B12 332.00 pg/ml 11/26/2014 %Hba1C Cbl610 % HbA1c 45929-9 8.6 % 11/26/2014 %Hba1C Dhe437 Gluc Ave 200 mg/dL 11/26/2014 Comp Metabolic Qlx516 NA 135 mEq/L 11/26/2014 Comp Metabolic Mok323 K 4.3 mEq/L 11/26/2014 Comp Metabolic Cme515 CL 101 mEq/L 11/26/2014 Comp Metabolic Gnm082 CO2 26.0 mEq/L 11/26/2014 Comp Metabolic Pat518 ANION GAP 12 11/26/2014 Comp Metabolic Ffh847 GLUCOSE 163 mg/dL 11/26/2014 Comp Metabolic Pam098 Creat 0.6 mg/dL 11/26/2014 Comp Metabolic Nys713 eGFR 123 ml/min/1.73m2 11/26/2014 Comp Metabolic Crj988 BUN 12 mg/dL 11/26/2014 Comp Metabolic Uzd505 B/C Ratio 21.8 Ratio 11/26/2014 Comp Metabolic Ezd130 CALCIUM 9.0 mg/dL 11/26/2014 Comp Metabolic Sdj490 ALK PHOS 120 U/L 11/26/2014 Comp Metabolic Fjw726 AST(SGOT) 64 U/L 11/26/2014 Comp Metabolic Pcx243 ALT(SGPT) 50 U/L 11/26/2014 Comp Metabolic Xzm828 BILI T 0.5 mg/dL 11/26/2014 Comp Metabolic Tab510 ALBUMIN 3.8 g/dL 11/26/2014 Comp Metabolic Ljx727 TPRO 6.5 g/dL 11/26/2014 Comp Metabolic Rri633 GLOB 2.7 g/dL 11/26/2014 Comp Metabolic Pzh767 A/G Ratio 1.4 Ratio 11/26/2014 Comp Metabolic Tgk124 Osmo 273 mOsmo 11/26/2014 Lipid Ord30 CHOL [...] lips 01/11/2018 None Full Exam - General 1995 Ears/Nose/Throat oral cavity/pharynx/larynx Overall: oral mucosa clear [...] affect 06/29/2016 None Full Exam - General 1994 [...] 10/03/2014 None Procedures Procedure Codes Date TOBACCO-USE RIVER PILOT 3-[address]: 583955241 CPT-4: G0436 12/24/2016 URINALYSIS NONAUTO W/O SCOPE CPT-4: 47245 12/24/2016 TOBACCO-USE RIVER PILOT 3-[address]: 031581847 CPT-4: G0436 06/29/2016 TOBACCO-USE RIVER PILOT 3-[address]: 104921626 CPT-4: G0436 09/09/2015 TRIAMCINOLONE ACET INJ NOS CPT-4: J3301 09/04/2015 TOBACCO-USE RIVER PILOT 3-[address]: 751101522 CPT-4: G0436 07/08/2015 TOBACCO-USE RIVER PILOT 3-[address]: 809301842 CPT-4: G0436 05/19/2015 Vital Signs Date Vital 02/02/2018 Blood Pressure 1: 160/80 Code : 8480-6 BMI: 52.9 Code : 72429-0 Heart Rate 1 : 82 bpm Height: 5'4" SpO2: 93% Weight: 308 lbs 01/11/2018 Height: Weight: 09/20/2017 Heart Rate 1: 86 bpm Height: SpO2: 98% Weight: 01/24/2017 Blood Pressure 1: 142/80 Code : 8480-6 BMI: 52.2 Code : 03388-8 Heart Rate 1 : 75 bpm Height: 5'4" SpO2: 94% Weight: 304 lbs 12/13/2016 Blood Pressure 1: 132/74 Code : 8480-6 BMI: 51.8 Code : 93653-5 Heart Rate 1 : 73 bpm Height: 5'4" SpO2: 98% Weight: 302 lbs 11/23/2016 Blood Pressure 1: 136/80 Code : 8480-6 BMI: 52.5 Code : 71750-4 Heart Rate 1 : 76 bpm Height: 5'4" SpO2: 97% Weight: 306 lbs 08/17/2016 Blood Pressure 1: 138/80 Code : 8480-6 BMI: 52.5 Code : 35594-3 Heart Rate 1 : 73 bpm Height: 5'4" SpO2: 97% Weight: 306 lbs 06/29/2016 Blood Pressure 1: 136/78 Code : 8480-6 BMI: 51.5 Code : 45898-6 Heart Rate 1 : 83 bpm Height: 5'4" SpO2: 98% Weight: 300 lbs 06/07/2016 Blood Pressure 1: 136/72 Code : 8480-6 BMI: 51.2 Code : 53833-0 Heart Rate 1 : 82 bpm Height: 5'4" SpO2: 95% Weight: 298 lbs 05/17/2016 Blood Pressure 1: 140/90 Code : 8480-6 BMI: 51.7 Code : 03268-8 Heart Rate 1 : 90 bpm Height: 5'4" SpO2: 97% Weight: 301 lbs 04/27/2016 Blood Pressure 1: 130/72 Code : 8480-6 Heart Rate 1: 77 bpm SpO2: 98% Weight: 302 lbs 03/18/2016 Blood Pressure 1: 130/60 Code : 8480-6 BMI: 52.4 Code : 84595-7 Heart Rate 1 : 80 bpm Height: 5'4" SpO2: 92% Weight: 305 lbs 09/09/2015 Blood Pressure 1: 146/78 Code : 8480-6 BMI: 53.4 Code : 77554-7 Heart Rate 1 : 82 bpm Height: 5'4" SpO2: 92% Weight: 311 lbs 09/04/2015 Blood Pressure 1: 160/74 Code : 8480-6 BMI: 54.6 Code : 23413-0 Heart Rate 1 : 88 bpm Height: 5'4" SpO2: 95% SpO2: 83% Weight: 318 lbs 07/08/2015 Blood Pressure 1: 150/82 Code : 8480-6 BMI: 53.7 Code : 16905-6 Heart Rate 1 : 84 bpm Height: 5'4" SpO2: 95% Weight: 313 lbs 05/19/2015 Blood Pressure 1: 132/70 Code : 8480-6 BMI: 53.7 Code : 26035-1 Heart Rate 1 : 83 bpm Height: 5'4" SpO2: 97% Weight: 313 lbs 03/31/2015 Blood Pressure 1: 138/86 Code : 8480-6 BMI: 53.1 Code : 34773-8 Heart Rate 1 : 79 bpm Height: 5'4" SpO2: 95% Weight: 309 lbs 8 oz 02/03/2015 Blood Pressure 1: 146/80 Code : 8480-6 BMI: 53.2 Code : 91794-8 Heart Rate 1 : 80 bpm Height: 5'4" SpO2: 98% Weight: 310 lbs 12/31/2014 Blood Pressure 1: 140/78 Code : 8480-6 BMI: 51.4 Code : 44011-5 Heart Rate 1 : 81 bpm Height: [...] of Symptom _ months ago 07/08/2015 In August back pain Location diffusely 05/19/2015 None back [...] of Symptom _ months ago 05/19/2015 In May back pain Location diffusely 03/31/2015 None back [...] of Symptom _ months ago 03/31/2015 In May neck pain Location on the right 03/31/2015 [...] data Encounters Encounter Performer Location Codes Date ( EST. PATIENT, LEVEL IV Diagnosis: Type 2 diabetes mellitus with hyperglycemia[ICD10: E11.65] Diagnosis: Morbid (severe) obesity due to excess calories[ICD10: E66.01] Diagnosis: Essential (primary) hypertension[ICD10: I10] Diagnosis: Palpitations[ICD10: R00.2] Diagnosis: Muscle spasm of back[ICD10: M62.830] Diagnosis: Mixed hyperlipidemia[ICD10: E78.2] Soledad Romero MD, [facility] CPT-4: 16383 02/02/2018 [id number] EST. PATIENT, LEVEL IV Diagnosis: Abscess of left lower eyelid[ICD10: H00.035] Diagnosis: Localized edema[ICD10: R60.0] Diagnosis: Other insomnia[ICD10: G47.09] Kelsie Romero MD, [facility] CPT-4 : 66483 01/11/2018 45205 EST. PATIENT, LEVEL IV Diagnosis: Type 2 diabetes mellitus with hyperglycemia[ICD10: E11.65] Diagnosis: Essential (primary) hypertension[ICD10: I10] Diagnosis: Muscle spasm of back[ICD10: M62.830] Diagnosis: Radiculopathy, cervicothoracic region[ICD10: M54.13] Kelsie Romero MD, [facility] CPT-4: 40961 09/20/2017 17450 EST. PATIENT, LEVEL III Diagnosis: Essential (primary) hypertension[ICD10: I10] Diagnosis: Palpitations[ICD10: R00.2] Kelsie Romero MD, [facility] CPT-4 : 55877 01/24/2017 ([id number]) [id number] EST. PATIENT, LEVEL IV Diagnosis: Type 2 diabetes mellitus with hyperglycemia[ICD10: E11.65] Diagnosis: Essential (primary) hypertension[ICD10: I10] Soledad Romero MD, [facility] CPT-4: 46589 12/13/2016 62344 EST. PATIENT, LEVEL III Diagnosis: Rash and other nonspecific skin eruption[ICD10: R21] Diagnosis: Dyshidrosis [pompholyx][ICD10: L30.1] Kelsie Romero MD, [facility] CPT-4: 56752 11/23/2016 ([id number]) 82790 EST. PATIENT, LEVEL IV Diagnosis: Type 2 diabetes mellitus with hyperglycemia[ICD10: E11.65] Diagnosis: Essential (primary) hypertension[ICD10: I10] Soledad Romero MD, [facility] CPT-4: 51434 08/17/2016 ([id number]) 33178 EST. PATIENT, LEVEL IV Diagnosis: Type 2 diabetes mellitus with hyperglycemia[ICD10: E11.65] Diagnosis: Essential (primary) hypertension[ICD10: I10] Diagnosis: Tobacco use[ICD10: Z72.0] Soledad Romero MD, [facility] CPT-4: 14000 06/29/2016 [id number] EST. PATIENT, LEVEL IV Diagnosis: Acute laryngopharyngitis[ICD10: J06.0] Diagnosis: Other allergic rhinitis[ICD10: J30.89] Diagnosis: Myalgia[ICD10: M79.1] Kelsie Romero MD, [facility] CPT-4: 68600 06/07/2016 [id number] EST. PATIENT, LEVEL IV Diagnosis: Other acute sinusitis[ICD10: J01.80] Diagnosis: Other allergic rhinitis[ICD10: J30.89] Kelsie Romero MD, [facility] CPT-4: 65272 05/17/2016 47949 EST. PATIENT, LEVEL IV Diagnosis: Type 2 diabetes mellitus with hyperglycemia[ICD10: E11.65] Diagnosis: Essential (primary) hypertension[ICD10: I10] Diagnosis: Other muscle spasm[ICD10: M62.838] Diagnosis: Morbid (severe) obesity due to excess calories[ICD10: E66.01] Kelsie Romero MD , [facility] CPT-4: 79060 04/27/2016 25209 EST. PATIENT, LEVEL III Diagnosis: Morbid (severe) obesity due to excess calories[ICD10: E66.01] Diagnosis: Acute laryngopharyngitis[ICD10: J06.0] Diagnosis: Cough[ICD10: R05] Kelsie Romero MD, [facility] CPT-4: 82360 03/18/2016 [id number] EST. PATIENT, LEVEL IV Diagnosis: Essential (primary) hypertension[ICD10: I10] Diagnosis: Radiculopathy, cervicothoracic region[ICD10: M54.13] Diagnosis: Spinal stenosis, lumbar region[ICD10: M48.06] Diagnosis: Rash and other nonspecific skin eruption[ICD10: R21] Diagnosis: Morbid (severe) obesity due to excess calories[ICD10: E66.01] Diagnosis: Tobacco use[ICD10: Z72.0] Kelsie Romero MD, [facility] CPT-4: 29469 09/09/2015 05963 EST. PATIENT, LEVEL IV Diagnosis: Acute laryngopharyngitis[ICD10: J06.0] Diagnosis: Wheezing[ICD10: R06.2] Diagnosis: Shortness of breath[ICD10: R06.02] Kelsie Romero MD, [facility] CPT-4: 46936 09/04/2015 ([id number]) 83600 EST. PATIENT, LEVEL IV Diagnosis: Essential (primary) hypertension[ICD10: I10] Diagnosis: Morbid (severe) obesity due to excess calories[ICD10: E66.01] Diagnosis: Tobacco use[ICD10: Z72.0] Soledad Romero MD, [facility] CPT-4: 57447 07/08/2015 ([id number]) 72094 EST. PATIENT, LEVEL IV Diagnosis: Type 2 diabetes mellitus with hyperglycemia[ICD10: E11.65] Diagnosis: Spinal stenosis, lumbar region[ICD10: M48.06] Diagnosis: Morbid (severe) obesity due to excess calories[ICD10: E66.01] Diagnosis: Tobacco use[ICD10: Z72.0] Soledad Romero MD, [facility] CPT-4: 58543 05/19/2015 ([id number]) 05429 EST. PATIENT, LEVEL III Diagnosis: Radiculopathy, cervicothoracic region[ICD10: M54.13] Diagnosis: Spinal stenosis, lumbar region[ICD10: M48.06] Diagnosis: Type 2 diabetes mellitus with hyperglycemia[ICD10: E11.65] Soledad Romero MD , [facility] CPT-4: 06883 03/31/2015 ([id number]) 66675 EST. PATIENT, LEVEL III Diagnosis: Spinal stenosis, lumbar region[ICD10: M48.06] Soledad Romero MD, [facility] CPT-4: 45445 02/03/2015 ([id number]) [id number] EST. PATIENT, LEVEL IV Diagnosis: DIABETES TYPE II[ICD9: 250.00] Diagnosis: ESSENTIAL HYPERTENSION[ICD9: 401.9] Diagnosis: Neck pain[ICD9: 723.1] Diagnosis: Muscle spasms of neck[ICD9: 728.85] Diagnosis: Abdominal cramping[ICD9: 789.00] [facility] CPT-4: 75483 12/31/2014 ([id number]) PREV VISIT NEW AGE 40-64 Diagnosis: Routine medical exam[ICD9: V70.0] [facility] CPT-4: 55087 10/03/2014 Plan of Care Planned Activity Notes Codes Status Date Patient Education: Patient Medication Summary Completed 03/31/2018 Care Plan: Urinalysis Pending 03/31/2018 Care Plan: Urine Culture if indicated Pending 03/31/2018 Care Plan: Referral Order SNOMED-CT : [id number] Pending 02/03/2018 Visit Plan: Hypertension - uncontrolled [...] have recommended pt to have evaluation by network applications specialist - Dr. Young. She needs stress [...] have recommended pt to have evaluation by network applications specialist - Dr. Young. She needs stress [...] refill skelaxin. 02/02/2018 Appointment: Soledad Romero WPtel: [address] [place], [place] [id number] (15 min) Moderate 02/02/2018 Patient Education: Patient [...] insomnia. 01/11/2018 [phone] ([facility] Complex 01/11/2018 Patient Education: Patient [...] medical practice. 09/20/2017 App[facility]ment[phone] [facility] ([facility] Complex 09/20/2017 Patient Education: Patient Medication Summary Completed 09/20/2017 Appointment: [facility] [phone] [facility] (15 min) Moderate 04/05/2017 Visit Plan: Hypertension [...] concerns. 01/24/2017 App[id number] ([facility] Complex 01/24/2017 Patient Education: Patient [...] disease. 12/13/2016 Appointment: Soledad Romero WPtel: [phone] [facility] (30 min) Complex 12/13/2016 Patient Education: Patient Medication Summary Completed 12/13/2016 Patient Education: Smoking and Tobacco Addiction Completed 12/13/2016 Patient Education: Obesity Completed 12/13/2016 Patient Education: Hypertension Completed 12/13/2016 Care Plan: Cbc With Differential Pending 12/13/2016 Care Plan: %Hba1C LOINC : 58400-9 Pending 12/13/2016 Care Plan: Lipid Pending 12/13/2016 [...] discharge. 11/23/2016 Appointment: Kelsie Burt WPtel: [phone] [facility] (30 min) Complex 11/23/2016 Patient Education: Patient [...] control. 08/17/2016 Appointment: [facility]el[facility] [phone] [facility] ([facility] min) Complex 08/17/2016 Patient Education: Patient Medication Summary Completed 08/17/2016 Patient Education: Smoking and Tobacco Addiction Completed 08/17/2016 Patient Education: Obesity Completed 08/17/2016 Patient Education: Hypertension Completed 08/17/2016 Appointment: [facility]edad Romero [facility]Ptel[facility] [phone] [facility] ([facility] min) Complex 07/29/2016 Visit Plan: Hypertension [...] tobacco use. 06/29/2016 Appointment: [facility]ed[facility] Romero [facility]el[facility] [phone] [facility] (15 min) Moderate 06/29/2016 Patient Education: Patient [...] any questions or concerns. 06/07/2016 Appointment: Kelsie uBrtl: [address] [place], [place] [id number] (30 min) [facility] 06/07/2016 Patient Education: Patient Medication Summary Completed [...] greater blood glucose control. 04/27/2016 Appointment: Kelsie Burtl: [phone] [facility] (30 min) Complex 04/27/2016 Patient Education: Patient Medication Summary Completed 04/27/2016 Patient Education: Smoking and Tobacco Addiction Completed 04/27/2016 Patient Education: Obesity Completed 04/27/2016 Appointment: Kelsie Burt WPtel: [facility] (30 min) Complex 04/22/2016 Visit Plan: Pt states that she just had neck surgery yesterday in [place] - today she is complaining of a cough and worried about it getting worse because she just had the surgery - Pt advised to increase fluids, vitamin C. Discussed natural and expected course of this diagnosis and need to alert me if symptoms do not follow expected course, or if any worse. RX sent to patient's pharmacy. 03/18/2016 Appointment: Kelsie Burt WPtel: [facility] (30 min) Complex 03/18/2016 Patient Education: Patient Medication Summary Completed 03/18/2016 Patient Education: Smoking and Tobacco Addiction Completed 03/18/2016 Patient Education: Obesity Completed 03/18/2016 Appointment: Sola Gustafson WPtel: [phone] [phone] [place] (30 min) Complex 10/21/2015 Care Plan: BMI [...] allergy spray. 09/04/2015 Appointment: Kelsie Burt WPtel: [address] [place], [place] [id number] (15 min) Moderate 09/04/2015 Patient Education: Patient [...] assist cessation. 07/08/2015 Appointment: Soledad Romero [facility]Ptel[facility] [phone] [facility] (15 min) Moderate 07/08/2015 Patient Education: Patient [...] cervical spine. 05/19/2015 Appointment: Soledad Romero WPtel: [phone] [facility] [place] (15 min) Moderate 05/19/2015 Patient Education: Patient [...] glucose control. 03/31/2015 Appointment: Soledad Romero WPtel: [phone] [facility] [place] (15 min) Moderate 03/31/2015 Patient Education: Patient Medication Summary Completed 03/31/2015 Patient Education: Hypertension Completed 03/31/2015 Patient Education: .Cervicalgia Neck Pain Completed 03/31/2015 Appointment: Soledad Romero WPtel: [phone] [facility] [place] (15 min) Moderate 03/10/2015 Visit Plan: Cervical spine stenosis - recommended pt to have an evaluation with Neurosurgery for possible surgical intervention. Po for MRI of lumbar spine. 02/03/2015 Appointment: Soledad Romero WPtel: [phone] [facility] [place] (15 min) Moderate 02/03/2015 Patient Education: [...] and naproxen. 12/31/2014 Appointment: Soledad Romero WPtel[facility] [phone] [facility] (15 min) Moderate 12/31/2014 Patient Education: Patient [...] not improve. 10/03/2014 Appointment: Soledad Romero WPtel: [phone] [facility] New Patient 10/03/2014 Patient Education: Patient Medication Summary Completed 10/03/2014 Referral: External, Ordering Provider Referral Completed Referral: [facility] Referral Appointment Requested Referral: External, Ordering Provider [...] she just had neck surgery yesterday in [place] - today she is complaining of a [...] have recommended pt to have evaluation by network applications specialist - Dr. Young. She needs stress [...] have recommended pt to have evaluation by network applications specialist - Dr. Young. She needs stress [...]
--- OUTSIDE RECORDS SUMMARY | 2018-04-03 07:31 | XMS REPORT | CCD ---
Author Author [facility] Organization [facility] Address [address] [place] [address] Phone Care Team Providers Care Manager Party Name Role Phone PP Unavailable CCM Unavailable Summary Purpose Interface Exchange Insurance Providers Payer name Policy type / Coverage type Covered constitution party ID Effective Begin Date Effective End Date Blue Cross Blue [facility] Blue Cross/Blue Shield [id number] 2017 Unknown Family history Father Diagnosis Age At Onset Stroke Unknown Osteoporosis Unknown Hypertension Unknown Hyperlipidemia Unknown Son Diagnosis Age At Onset defect Unknown Asthma Unknown Mother Diagnosis Age At Onset Stroke Unknown Hypertension Unknown Diabetes Unknown Osteoporosis Unknown Social History Social History Element Codes Description Effective Dates Marital status Unknown Alex 06/29/2016 Number of children Unknown 3 10/03/[address]: 84362209 Current every day smoker 10/03/2014 Number of years using tobacco Unknown 30 - 40 10/03/2014 Number of cigarettes/day Unknown 30 ( Pack and a half) 10/03/[address]: 894271173 Never drinks alcohol 10/03/2014 Allergies, Adverse Reactions, Alerts Substance Reaction Codes Entered Date Inactivated Date Status * OTHER REACTION - SEE ANSWER BOX Unknown 06/29/2016 No Inactive Date Active NO KNOWN DRUG ALLERGIES Unknown 10/03/2014 No Inactive Date Active Past Medical History Illness Codes Condition Status Onset Date Resolved Date Essential (primary) hypertension ICD-9: 401.9 ICD-10: I10 [...] ICD-9: 723.1 ICD-10: M54.13 Active 09/08/2015 Unknown Dysuria ICD-9: 788.1 ICD-10: R30.0 Active 12/24/2016 Unknown Tobacco use ICD-9: 305.1 ICD-10: Z72.0 [...] Problems Condition Codes Effective Dates Condition Status Essential (primary) hypertension ICD-9: 401.9 ICD-10: I10 [...] region ICD-9: 723.1 ICD-10: M54.13 09/08/2015 Active Dysuria ICD-9: 788.1 ICD-10: R30.0 12/24/2016 Active Tobacco use ICD-9: 305.1 ICD-10: Z72.0 [...] 500 mg tablet,extended release 24 hr RxNorm: 587208 4 Tablet(s) PO daily 02/02/2018 08/30/2018 Active Trilipix 135 mg capsule,delayed release RxNorm: 608130 1 Capsule(s) PO daily 02/02/2018 08/30/2018 Active losartan 100 mg tablet RxNorm: 521208 1 Tablet(s) PO daily TAKE 1 TABLET BY MOUTH DAILY 02/02/2018 07/31/2018 Active Skelaxin 800 mg tablet RxNorm: 170141 1 Tablet(s) PO TID 201706/01/2018 Active metformin ER 1,000 mg tablet,extended release 24hr RxNorm: 3185142 2 Tablet(s) PO daily 02/02/2018 02/01/2018 Inactive Levaquin 500 mg tablet RxNorm: 964497 1 Tablet(s) PO daily 01/19/2018 Inactive valacyclovir 1 gram tablet RxNorm: 340985 1 Tablet(s) PO TID 01/17/2018 Inactive furosemide 20 mg tablet RxNorm: 795785 TABLET(S) 1 TABLET(S) PO DAILY 12/08/2017 04/06/2018 Active losartan 50 mg tablet RxNorm: 871876 1 Tablet(s) PO daily TAKE 1 TABLET BY MOUTH DAILY 09/26/2017 02/01/2018 Inactive Skelaxin 800 mg tablet RxNorm: 199133 1 Tablet(s) PO TID 201710/19/2017 Inactive gabapentin 300 mg capsule RxNorm: 264963 1 Capsule(s) PO BID 10/15/2017 Inactive losartan 25 mg tablet RxNorm: 208327 TAKE 1 TABLET BY MOUTH DAILY 09/16/2017 09/25/2017 Inactive naproxen 500 mg tablet RxNorm: 726263 1 TABLET(S) PO BID 201711/21/2017 Inactive Tamiflu 75 mg capsule RxNorm: 318806 1 Capsule(s) PO BID 201706/26/2017 Inactive Levaquin 500 mg tablet RxNorm: 423984 1 Tablet(s) PO daily 03/201806/26/2017 Inactive Tamiflu 75 mg capsule RxNorm: 233237 1 Capsule(s) PO BID 201707/01/2017 Inactive Levaquin 500 mg tablet RxNorm: 624193 1 Tablet(s) PO daily 03/201807/03/2017 Inactive Keflex 500 mg capsule RxNorm: 844310 1 Capsule(s) PO TID 201612/30/2016 Inactive Keflex 500 mg capsule RxNorm: 884378 1 Capsule(s) PO TID 201612/23/2016 Inactive Trilipix 135 mg capsule,delayed release RxNorm: 471820 1 Capsule(s) PO daily 12/24/2016 03/23/2017 Inactive Trilipix 135 mg capsule,delayed release RxNorm: 480487 1 Capsule(s) PO daily 12/24/2016 12/23/2016 Inactive losartan 25 mg tablet RxNorm: 240226 2 Tablet(s) daily 201601/25/2017 Inactive metformin ER 1,000 mg tablet,extended release 24hr RxNorm: 1148616 1 Tablet(s) PO daily 12/13/2016 07/10/2017 Inactive furosemide 20 mg tablet RxNorm: 092041 TABLET(S) 1 TABLET(S) PO DAILY 12/03/2016 04/01/2017 Inactive triamcinolone acetonide 0.025 % topical cream RxNorm: 0233278 1 Application TOP BID 11/23/2016 No Stop Date Active losartan 25 mg tablet RxNorm: 852828 TAKE 1 TABLET BY MOUTH DAILY 11/09/2016 12/12/2016 Inactive metformin 500 mg tablet RxNorm: 765372 3 Tablet(s) PO UD 1 in the morning and two pills at night. 08/17/2016 12/12/2016 Inactive naproxen 500 mg tablet RxNorm: 398131 1 Tablet(s) PO BID 201611/29/2016 Inactive Keflex 500 mg capsule RxNorm: 948518 1 Capsule(s) PO BID 201606/16/2016 Inactive prednisone 10 mg tablet RxNorm: 649929 1 Tablet(s) PO UD 201611/18/2016 Inactive 6,5,4,3,2,1 albuterol sulfate 2.5 mg/3 mL (0.083 %) solution for nebulization RxNorm: 128698 3 Milliliter(s) INH Q4-6H as needed 05/19/2016 11/17/2016 Inactive Augmentin 500 mg-125 mg tablet RxNorm: 059094 1 Tablet(s) PO TID 05/17/2016 05/26/2016 Inactive hydrocodone 5 mg-acetaminophen 325 mg tablet RxNorm: 089472 Tablet(s) PO prescribed by ortho 04/19/2016 01/19/2017 Inactive furosemide 20 mg tablet RxNorm: 577257 Tablet(s) 1 TABLET(S) PO DAILY 03/24/2016 07/21/2016 Inactive metformin 500 mg tablet RxNorm: 445420 1 Tablet(s) PO BID 03/2407/21/2016 Inactive levofloxacin 500 mg tablet RxNorm: 163941 1 Tablet(s) PO daily 03/18/2016 05/03/2016 Inactive furosemide 20 mg tablet RxNorm: 369186 1 TABLET(S) PO DAILY 03/23/2016 Inactive Lipitor 10 mg tablet RxNorm: 685507 1 TABLET(S) PO QPM 201512/12/2016 Inactive betamethasone dipropionate 0.05 % topical cream RxNorm: 166692 1 Application TOP BID 09/09/2015 01/21/2017 Inactive prednisone 10 mg tablet RxNorm: 730652 Tablet(s) PO UD 201505/03/2016 Inactive 6,5,4,3,2,1 albuterol sulfate 2.5 mg/3 mL (0.083 %) solution for nebulization RxNorm: 349981 3 Milliliter(s) INH Q4-6H as needed 09/04/2015 05/18/2016 Inactive Kenalog 40 mg/mL suspension for injection RxNorm: 3515746 Milliliter(s) Inj 09/04/2015 09/04/2015 Inactive levofloxacin 500 mg tablet RxNorm: 100321 1 Tablet(s) PO daily 09/01/2015 03/17/2016 Inactive gabapentin 300 mg capsule RxNorm: 933111 1 Capsule(s) PO BID 09/15/2017 Inactive losartan 25 mg tablet RxNorm: 580659 1 Tablet(s) PO daily 201502/02/2016 Inactive Lipitor 10 mg tablet RxNorm: 707649 1 Tablet(s) PO QPM 201508/22/2015 Inactive furosemide 20 mg tablet RxNorm: 241515 1 Tablet(s) PO daily 04/201407/15/2015 Inactive metformin 500 mg tablet RxNorm: 414129 2 Tablet(s) PO BID 12/3104/29/2015 Inactive gabapentin 300 mg capsule RxNorm: 525503 1 Capsule(s) PO QHS 07/09/2015 Inactive Lipitor 10 mg tablet RxNorm: 721896 1 Tablet(s) PO QPM 201412/03/2014 Inactive metformin 500 mg tablet RxNorm: 077462 1/2 Tablet(s) PO QPM x1 week and then 1/2 tab bid x 1 week then 500mg 1 tab bid there after 12/04/2014 12/03/2014 Inactive metformin 500 mg tablet RxNorm: 788664 1/2 Tablet(s) PO QPM x1 week and then 1/2 tab bid x 1 week then 500mg 1 tab bid there after 12/04/2014 12/30/2014 Inactive Lipitor 10 mg tablet RxNorm: 072855 1 Tablet(s) PO QPM 201401/02/2015 Inactive ProAir HFA 90 mcg/actuation aerosol inhaler RxNorm: 5265144 INH as needed No Start Date Active coenzyme Q10 100 mg capsule RxNorm: 551141 1 Capsule(s) PO daily No Start Date Active Calcium RxNorm: 1 PO daily No Start Date Active melatonin 5 mg chewable tablet RxNorm: 1369957 2 Tablet(s) PO QHS No Start Date Active multivitamin with calcium carb and iron tablet RxNorm: 1 Tablet(s) PO daily No Start Date Active Shantelle-D 24 Hour oral RxNorm: 628973 oral No Start Date Active Refresh Dry Eye Therapy RxNorm: 102160 ophthalmic (eye) No Start Date Active gabapentin 300 mg capsule RxNorm: 763551 1 Capsule(s) PO daily No Start Date Active triamcinolone acetonide 0.025 % topical cream RxNorm: 5486496 1 Application TOP ordered by dermatolgy No Start Date Active naproxen 500 mg tablet RxNorm: 726683 1 Tablet(s) PO BID as needed No Start Date Active multivitamin capsule RxNorm: 1 Capsule(s) PO daily No Start Date Active amlodipine 5 mg tablet RxNorm: 352817 1 Tablet(s) PO daily No Start Date 12/12/2016 Inactive tramadol 50 mg tablet RxNorm: 076853 1 Tablet(s) PO Q4 PRN No Start Date 03/11/2015 Inactive naproxen 500 mg tablet RxNorm: 419696 1 Tablet(s) PO BID No Start Date 08/01/2016 Inactive clotrimazole-betamethasone 1 %-0.05 % topical cream RxNorm: 651323 1 Application TOP ordered by varnish cooker No Start Date 01/17/2018 Inactive baclofen 10 mg tablet RxNorm: 079523 1 Tablet(s) PO TID as needed muscle spasms No Start Date 01/16/2018 Inactive furosemide 20 mg tablet RxNorm: 573412 1 Tablet(s) PO daily No Start Date 03/17/2015 Inactive cyclobenzaprine 10 mg tablet RxNorm: 586545 1 Tablet(s) PO Q8 PRN No Start Date 07/09/2015 Inactive levofloxacin 500 mg tablet RxNorm: 947057 1 Tablet(s) PO daily No Start Date 12/30/2014 Inactive gabapentin 100 mg capsule RxNorm: 781834 1 Capsule(s) PO TID No Start Date 12/30/2014 Inactive potassium gluconate 550 mg (90 mg) tablet RxNorm: 5663962 oral No Start Date 12/12/2016 Inactive Vesicare 5 mg tablet RxNorm: 513267 1 Tablet(s) PO daily prescribed by Dr. Rm No Start Date 01/16/2018 Inactive Medication Administered Medication Codes Instructions Start Date Status Kenalog 40 mg/mL suspension for injection RxNorm: 5531841 Milliliter 09/04/2015 No longer Active Immunizations No Immunization data Assessments Condition Codes Effective Dates Muscle spasm of back ICD-10: M62.830 ICD-9: [...] cervicothoracic region ICD-10: M54.13 ICD-9: 723.1 09/20/2017 Dysuria ICD-10: R30.0 ICD-9: 788.1 12/24/2016 Rash and other nonspecific skin eruption ICD-10: [...] Observation Code Item Item Code Result Date %Hba1C Jpu545 % HbA1c 51021-3 7.8 % 12/14/2016 %Hba1C Rvq225 Gluc Ave 177 mg/dL 12/14/2016 Microalbumin Qvu199 MicroAlb 2.4 mg/dL 12/14/2016 Lipid Ord30 CHOL [...] 29.6 pg 12/14/2016 Cbc With Differential Ord2 [place]% 6.5 % 12/14/2016 Cbc With Differential Ord2 [...] 3.88 K/ul 12/14/2016 Cbc With Differential Ord2 [place] ABS# 0.8 K/ul 12/14/2016 Cbc With Differential Ord2 Eos ABS# 0.1 K/ul 12/14/2016 Cbc With Differential Ord2 Baso ABS# 0.0 K/ul 12/14/2016 Tsh Ord6 hTSH II 2.18 uIU/mL 12/14/2016 Comp Metabolic Nvg788 NA 139 mEq/L 12/14/2016 Comp Metabolic Vtn660 K 4.2 mEq/L 12/14/2016 Comp Metabolic Txz124 CL 102 mEq/L 12/14/2016 Comp Metabolic Nfj514 CO2 25.0 mEq/L 12/14/2016 Comp Metabolic Lcx539 ANION GAP 16 12/14/2016 Comp Metabolic Mvo919 GLUCOSE 150 mg/dL 12/14/2016 Comp Metabolic Ugm661 Creat 0.5 mg/dL 12/14/2016 Comp Metabolic Ipf006 eGFR 124 ml/min/1.73m2 12/14/2016 Comp Metabolic Ymz861 BUN 14 mg/dL 12/14/2016 Comp Metabolic Hyf982 B/C Ratio 25.9 Ratio 12/14/2016 Comp Metabolic Fba731 CALCIUM 9.2 mg/dL 12/14/2016 Comp Metabolic Bzz211 ALK PHOS 121 U/L 12/14/2016 Comp Metabolic Yuk918 AST(SGOT) 20 U/L 12/14/2016 Comp Metabolic Vaw993 ALT(SGPT) 22 U/L 12/14/2016 Comp Metabolic Rnj016 BILI T 0.3 mg/dL 12/14/2016 Comp Metabolic Ucq228 ALBUMIN 3.9 g/dL 12/14/2016 Comp Metabolic Zwm457 TPRO 6.8 g/dL 12/14/2016 Comp Metabolic Irj173 GLOB 2.9 g/dL 12/14/2016 Comp Metabolic Vrc582 A/G Ratio 1.3 Ratio 12/14/2016 Comp Metabolic Jhm985 Osmo 281 mOsmo 12/14/2016 Sed Rate Ord21 [...] 29.1 pg 04/27/2016 Cbc With Differential Ord2 [place]% 5.3 % 04/27/2016 Cbc With Differential Ord2 [...] 3.93 K/ul 04/27/2016 Cbc With Differential Ord2 [place] ABS# 0.6 K/ul 04/27/2016 Cbc With Differential Ord2 Eos ABS# 0.1 K/ul 04/27/2016 Cbc With Differential Ord2 Baso ABS# 0.0 K/ul 04/27/2016 Tsh Ord6 hTSH II 1.82 uIU/mL 04/27/2016 Comp Metabolic Mxf952 NA 136 mEq/L 04/27/2016 Comp Metabolic Dae541 K 3.9 mEq/L 04/27/2016 Comp Metabolic Ojk532 CL 101 mEq/L 04/27/2016 Comp Metabolic Row668 CO2 25.0 mEq/L 04/27/2016 Comp Metabolic Thb720 ANION GAP 14 04/27/2016 Comp Metabolic Isv493 GLUCOSE 204 mg/dL 04/27/2016 Comp Metabolic Tpp001 Creat 0.6 mg/dL 04/27/2016 Comp Metabolic Zdp503 eGFR 104 ml/min/1.73m2 04/27/2016 Comp Metabolic Saf429 BUN 13 mg/dL 04/27/2016 Comp Metabolic Tjy664 B/C Ratio 20.6 Ratio 04/27/2016 Comp Metabolic Zhn590 CALCIUM 9.0 mg/dL 04/27/2016 Comp Metabolic Ioj007 ALK PHOS 119 U/L 04/27/2016 Comp Metabolic Tvr910 AST(SGOT) 13 U/L 04/27/2016 Comp Metabolic Vxq327 ALT(SGPT) 12 U/L 04/27/2016 Comp Metabolic Hyy526 BILI T 0.3 mg/dL 04/27/2016 Comp Metabolic Nlp956 ALBUMIN 3.9 g/dL 04/27/2016 Comp Metabolic Oab864 TPRO 6.8 g/dL 04/27/2016 Comp Metabolic Gbp511 GLOB 2.9 g/dL 04/27/2016 Comp Metabolic Wca681 A/G Ratio 1.3 Ratio 04/27/2016 Comp Metabolic Hqw916 Osmo 278 mOsmo 04/27/2016 %Hba1C Ayw030 % HbA1c 47763-4 7.7 % 04/27/2016 %Hba1C Awl553 Gluc Ave 174 mg/dL 04/27/2016 %Hba1C Uat901 % HbA1c 60020-9 7.4 % 03/31/2015 %Hba1C Znp395 Gluc Ave 166 mg/dL 03/31/2015 Folate Ord36 [...] Differential Ord2 RDW 15.7 % 11/26/2014 B12 Fad928 B12 332.00 pg/ml 11/26/2014 %Hba1C Yje918 % HbA1c 27474-2 8.6 % 11/26/2014 %Hba1C Wqm261 Gluc Ave 200 mg/dL 11/26/2014 Comp Metabolic Mrl517 NA 135 mEq/L 11/26/2014 Comp Metabolic Umv519 K 4.3 mEq/L 11/26/2014 Comp Metabolic Djv171 CL 101 mEq/L 11/26/2014 Comp Metabolic Irm154 CO2 26.0 mEq/L 11/26/2014 Comp Metabolic Lcb481 ANION GAP 12 11/26/2014 Comp Metabolic Ipe817 GLUCOSE 163 mg/dL 11/26/2014 Comp Metabolic Diy831 Creat 0.6 mg/dL 11/26/2014 Comp Metabolic Axo758 eGFR 123 ml/min/1.73m2 11/26/2014 Comp Metabolic Eav420 BUN 12 mg/dL 11/26/2014 Comp Metabolic Nda577 B/C Ratio 21.8 Ratio 11/26/2014 Comp Metabolic Dap712 CALCIUM 9.0 mg/dL 11/26/2014 Comp Metabolic Ldh091 ALK PHOS 120 U/L 11/26/2014 Comp Metabolic Eei415 AST(SGOT) 64 U/L 11/26/2014 Comp Metabolic Fxa744 ALT(SGPT) 50 U/L 11/26/2014 Comp Metabolic Upw995 BILI T 0.5 mg/dL 11/26/2014 Comp Metabolic Kkf213 ALBUMIN 3.8 g/dL 11/26/2014 Comp Metabolic Wpb744 TPRO 6.5 g/dL 11/26/2014 Comp Metabolic Diy491 GLOB 2.7 g/dL 11/26/2014 Comp Metabolic Nlj367 A/G Ratio 1.4 Ratio 11/26/2014 Comp Metabolic Kab339 Osmo 273 mOsmo 11/26/2014 Lipid Ord30 CHOL [...] lips 04/27/2016 None Full Exam - General 1995 Ears/Nose/Throat [...] 10/03/2014 None Procedures Procedure Codes Date 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 [employer]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 3-[address]: 078766685 CPT-4: G0436 12/24/2016 URINALYSIS NONAUTO W/O SCOPE CPT-4: 27250 12/24/2016 TOBACCO-USE [employer] AND [employer]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 3-[address]: 294986796 CPT-4: G0436 06/29/2016 TOBACCO-USE L[employer] AND FRAMES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 3-[address]: 557201391 CPT-4: G0436 09/09/2015 TRIAMCINOLONE ACET INJ NOS CPT-4: J3301 09/04/2015 TOBACCO-USE [employer] AND [employer]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 3-[address]: 956641359 CPT-4: G0436 07/08/2015 TOBACCO-USE L[employer] AND FRAMES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 3-[address]: 045153142 CPT-4: G0436 05/19/2015 Vital Signs Date Vital 02/02/2018 Blood Pressure 1: 160/80 Code : 8480-6 BMI: 52.9 Code : 02389-3 Heart Rate 1 : 82 bpm Height: 5'4" SpO2: 93% Weight: 308 lbs 01/11/2018 Height: Weight: 09/20/2017 Heart Rate 1: 86 bpm Height: SpO2: 98% Weight: 01/24/2017 Blood Pressure 1: 142/80 Code : 8480-6 BMI: 52.2 Code : 00627-0 Heart Rate 1 : 75 bpm Height: 5'4" SpO2: 94% Weight: 304 lbs 12/13/2016 Blood Pressure 1: 132/74 Code : 8480-6 BMI: 51.8 Code : 99173-9 Heart Rate 1 : 73 bpm Height: 5'4" SpO2: 98% Weight: 302 lbs 11/23/2016 Blood Pressure 1: 136/80 Code : 8480-6 BMI: 52.5 Code : 21174-6 Heart Rate 1 : 76 bpm Height: 5'4" SpO2: 97% Weight: 306 lbs 08/17/2016 Blood Pressure 1: 138/80 Code : 8480-6 BMI: 52.5 Code : 92806-9 Heart Rate 1 : 73 bpm Height: 5'4" SpO2: 97% Weight: 306 lbs 06/29/2016 Blood Pressure 1: 136/78 Code : 8480-6 BMI: 51.5 Code : 92771-9 Heart Rate 1 : 83 bpm Height: 5'4" SpO2: 98% Weight: 300 lbs 06/07/2016 Blood Pressure 1: 136/72 Code : 8480-6 BMI: 51.2 Code : 68090-6 Heart Rate 1 : 82 bpm Height: 5'4" SpO2: 95% Weight: 298 lbs 05/17/2016 Blood Pressure 1: 140/90 Code : 8480-6 BMI: 51.7 Code : 46372-1 Heart Rate 1 : 90 bpm Height: 5'4" SpO2: 97% Weight: 301 lbs 04/27/2016 Blood Pressure 1: 130/72 Code : 8480-6 Heart Rate 1: 77 bpm SpO2: 98% Weight: 302 lbs 03/18/2016 Blood Pressure 1: 130/60 Code : 8480-6 BMI: 52.4 Code : 57688-8 Heart Rate 1 : 80 bpm Height: 5'4" SpO2: 92% Weight: 305 lbs 09/09/2015 Blood Pressure 1: 146/78 Code : 8480-6 BMI: 53.4 Code : 05955-4 Heart Rate 1 : 82 bpm Height: 5'4" SpO2: 92% Weight: 311 lbs 09/04/2015 Blood Pressure 1: 160/74 Code : 8480-6 BMI: 54.6 Code : 93737-1 Heart Rate 1 : 88 bpm Height: 5'4" SpO2: 95% SpO2: 83% Weight: 318 lbs 07/08/2015 Blood Pressure 1: 150/82 Code : 8480-6 BMI: 53.7 Code : 64406-8 Heart Rate 1 : 84 bpm Height: 5'4" SpO2: 95% Weight: 313 lbs 05/19/2015 Blood Pressure 1: 132/70 Code : 8480-6 BMI: 53.7 Code : 47961-2 Heart Rate 1 : 83 bpm Height: 5'4" SpO2: 97% Weight: 313 lbs 03/31/2015 Blood Pressure 1: 138/86 Code : 8480-6 BMI: 53.1 Code : 96051-0 Heart Rate 1 : 79 bpm Height: 5'4" SpO2: 95% Weight: 309 lbs 8 oz 02/03/2015 Blood Pressure 1: 146/80 Code : 8480-6 BMI: 53.2 Code : 48190-5 Heart Rate 1 : 80 bpm Height: 5'4" SpO2: 98% Weight: 310 lbs 12/31/2014 Blood Pressure 1: 140/78 Code : 8480-6 BMI: 51.4 Code : 99003-3 Heart Rate 1 : 81 bpm Height: [...] Encounters Encounter Performer Location Codes Date ( 17025 EST. PATIENT, LEVEL IV Diagnosis: Type 2 diabetes mellitus with hyperglycemia[ICD10: E11.65] Diagnosis: Morbid (severe) obesity due to excess calories[ICD10: E66.01] Diagnosis: Essential (primary) hypertension[ICD10: I10] Diagnosis: Palpitations[ICD10: R00.2] Diagnosis: Muscle spasm of back[ICD10: M62.830] Diagnosis: Mixed hyperlipidemia[ICD10: E78.2] Soledad Romero MD, [facility] CPT-4: 22304 02/02/2018 48024 EST. PATIENT, LEVEL IV Diagnosis: Abscess of left lower eyelid[ICD10: H00.035] Diagnosis: Localized edema[ICD10: R60.0] Diagnosis: Other insomnia[ICD10: G47.09] Kelsie Romero MD, [facility] CPT-4 : 88467 01/11/2018 20436 EST. PATIENT, LEVEL IV Diagnosis: Type 2 diabetes mellitus with hyperglycemia[ICD10: E11.65] Diagnosis: Essential (primary) hypertension[ICD10: I10] Diagnosis: Muscle spasm of back[ICD10: M62.830] Diagnosis: Radiculopathy, cervicothoracic region[ICD10: M54.13] Kelsie Romero MD [facility] CPT-4: 51830 09/20/2017 55569 EST. PATIENT, LEVEL III Diagnosis: Essential (primary) hypertension[ICD10: I10] Diagnosis: Palpitations[ICD10: R00.2] Kelsie Romero MD [facility] CPT-4 : 21501 01/24/2017 ([id number]) 03304 EST. PATIENT, LEVEL IV Diagnosis: Type 2 diabetes mellitus with hyperglycemia[ICD10: E11.65] Diagnosis: Essential (primary) hypertension[ICD10: I10] Soledad Romero MD [facility] CPT-4: 92827 12/13/2016 65422 EST. PATIENT, LEVEL III Diagnosis: Rash and other nonspecific skin eruption[ICD10: R21] Diagnosis: Dyshidrosis [pompholyx][ICD10: L30.1] Kelsie Romero MD [facility] CPT-4: 87877 11/23/2016 ([id number]) 85552 EST. PATIENT, LEVEL IV Diagnosis: Type 2 diabetes mellitus with hyperglycemia[ICD10: E11.65] Diagnosis: Essential (primary) hypertension[ICD10: I10] Soledad Romero MD [facility] CPT-4: 28890 08/17/2016 ([id number]) 26522 EST. PATIENT, LEVEL IV Diagnosis: Type 2 diabetes mellitus with hyperglycemia[ICD10: E11.65] Diagnosis: Essential (primary) hypertension[ICD10: I10] Diagnosis: Tobacco use[ICD10: Z72.0] Soledad Romero MD [facility] CPT-4: 19461 06/29/2016 41344 EST. PATIENT, LEVEL IV Diagnosis: Acute laryngopharyngitis[ICD10: J06.0] Diagnosis: Other allergic rhinitis[ICD10: J30.89] Diagnosis: Myalgia[ICD10: M79.1] Kelsie Romero MD, [facility] CPT-4: 13022 06/07/2016 76251 EST. PATIENT, LEVEL IV Diagnosis: Other acute sinusitis[ICD10: J01.80] Diagnosis: Other allergic rhinitis[ICD10: J30.89] Kelsie Romero MD [facility] CPT-4: 30027 05/17/2016 12488 EST. PATIENT, LEVEL IV Diagnosis: Type 2 diabetes mellitus with hyperglycemia[ICD10: E11.65] Diagnosis: Essential (primary) hypertension[ICD10: I10] Diagnosis: Other muscle spasm[ICD10: M62.838] Diagnosis: Morbid (severe) obesity due to excess calories[ICD10: E66.01] Kelsie Romero MD , [facility] CPT-4: 08399 04/27/2016 00079 EST. PATIENT, LEVEL III Diagnosis: Morbid (severe) obesity due to excess calories[ICD10: E66.01] Diagnosis: Acute laryngopharyngitis[ICD10: J06.0] Diagnosis: Cough[ICD10: R05] Kelsie Romero MD, [facility] CPT-4: 59313 03/18/2016 63340 EST. PATIENT, LEVEL IV Diagnosis: Essential (primary) hypertension[ICD10: I10] Diagnosis: Radiculopathy, cervicothoracic region[ICD10: M54.13] Diagnosis: Spinal stenosis, lumbar region[ICD10: M48.06] Diagnosis: Rash and other nonspecific skin eruption[ICD10: R21] Diagnosis: Morbid (severe) obesity due to excess calories[ICD10: E66.01] Diagnosis: Tobacco use[ICD10: Z72.0] Kelsie Romero MD, [facility] CPT-4: 68000 09/09/2015 17794 EST. PATIENT, LEVEL IV Diagnosis: Acute laryngopharyngitis[ICD10: J06.0] Diagnosis: Wheezing[ICD10: R06.2] Diagnosis: Shortness of breath[ICD10: R06.02] Kelsie Romero MD, [facility] CPT-4: 51659 09/04/2015 ([id number]) 95902 EST. PATIENT, LEVEL IV Diagnosis: Essential (primary) hypertension[ICD10: I10] Diagnosis: Morbid (severe) obesity due to excess calories[ICD10: E66.01] Diagnosis: Tobacco use[ICD10: Z72.0] Soledad Romero MD, [facility] CPT-4: 50694 07/08/2015 ([id number]) 51920 EST. PATIENT, LEVEL IV Diagnosis: Type 2 diabetes mellitus with hyperglycemia[ICD10: E11.65] Diagnosis: Spinal stenosis, lumbar region[ICD10: M48.06] Diagnosis: Morbid (severe) obesity due to excess calories[ICD10: E66.01] Diagnosis: Tobacco use[ICD10: Z72.0] Soledad Romero MD [facility] CPT-4: 32584 05/19/2015 ([id number] 51450 EST. PATIENT, LEVEL III Diagnosis: Radiculopathy, cervicothoracic region[ICD10: M54.13] Diagnosis: Spinal stenosis, lumbar region[ICD10: M48.06] Diagnosis: Type 2 diabetes mellitus with hyperglycemia[ICD10: E11.65] SANDRA Olivier MD CPT-4: 91277 03/31/2015 ([id number]) 80216 EST. PATIENT, LEVEL III Diagnosis: Spinal stenosis, lumbar region[ICD10: M48.06] SANDRA Olivier MD CPT-4: 27030 02/03/2015 ([id number]) 84260 EST. PATIENT, LEVEL IV Diagnosis: DIABETES TYPE II[ICD9: 250.00] Diagnosis: ESSENTIAL HYPERTENSION[ICD9: 401.9] Diagnosis: Neck pain[ICD9: 723.1] Diagnosis: Muscle spasms of neck[ICD9: 728.85] Diagnosis: Abdominal cramping[ICD9: 789.00] SANDRA Olivier MD CPT-4: 73579 12/31/2014 ([id number]) PREV VISIT NEW AGE 40-64 Diagnosis: Routine medical exam[ICD9: V70.0] SANDRA Olivier MD CPT-4: 07294 10/03/2014 Plan of Care Planned Activity Notes Codes Status Date Care Plan: Referral Order SNOMED-CT : [id number] Pending 02/03/2018 Visit Plan: Hypertension - uncontrolled [...] have recommended pt to have evaluation by patient financial specialist - Dr. Young. She needs stress [...] have recommended pt to have evaluation by patient financial specialist - Dr. Young. She needs stress [...] refill skelaxin. 02/02/2018 [phone] [id number] ([facility] Moderate 02/02/2018 Patient Education: Patient Medication Summary Completed 02/02/2018 Patient Education: Hypertension Completed 02/02/2018 Patient Education: Cholesterol Management Completed 02/02/2018 Care Plan: Comp Metabolic Pending 02/02/2018 Care Plan: Cbc With Differential Pending 02/02/2018 Care Plan: %Hba1C LOINC : 54069-9 Pending 02/02/2018 Care Plan: Tsh Pending 02/02/2018 Care Plan: Lipid Pending 02/02/2018 Care Plan: Microalbumin Pending 02/02/2018 Visit Plan: Sore to left lower [...] time insomnia. 01/11/2018 Appointment: [facility]urt [phone] [id number] [place] (30 min) Complex 01/11/2018 Patient Education: Patient [...] practice. 09/20/2017 Appointment: Kelsie Burt WPtel: [phone] [id number] (30 min) Complex 09/20/2017 Patient Education: Patient Medication Summary Completed 09/20/2017 Appointment: [id number] (15 min) Moderate 04/05/2017 Visit Plan: Hypertension [...] concerns. 01/24/2017 Appointment: Kelsie Burt WPtel: [phone] [place] [id number] (30 min) Complex 01/24/2017 Patient Education: Patient [...] medical disease. 12/13/2016 Appointment: Soledad Romero [facility]el[facility] [facility] 12/13/2016 Patient Education: Patient Medication Summary Completed 12/13/2016 Patient Education: Smoking and Tobacco Addiction Completed 12/13/2016 Patient Education: Obesity Completed 12/13/2016 Patient Education: Hypertension Completed 12/13/2016 Care Plan: Cbc With Differential Pending 12/13/2016 Care Plan: %Hba1C LOINC : 94289-8 Pending 12/13/2016 Care Plan: Lipid Pending 12/13/2016 [...] discharge. 11/23/2016 Appointment: Kelsie Burt [facility]Ptel[id number] ([facility]) Complex 11/23/2016 Patient Education: Patient [...] control. 08/17/2016 Appointment: [facility]ed[id number] ([facility]) Complex 08/17/2016 Patient Education: Patient Medication Summary Completed 08/17/2016 Patient Education: Smoking and Tobacco Addiction Completed 08/17/2016 Patient Education: Obesity Completed 08/17/2016 Patient Education: Hypertension Completed 08/17/2016 Appointment: [id number] ([facility]) [facility] 07/29/2016 Visit Plan: Hypertension [...] use. 06/29/2016 Appointment: Soledad Romero WPtel: [phone] [facility] (15 min) Moderate 06/29/2016 Patient Education: Patient [...] or concerns. 06/07/2016 Appointment: [phone] ([facility]) Complex 06/07/2016 Patient Education: Patient [...] glucose control. 04/27/2016 Appointment: [facility]urt [id number] ([facility]) Complex 04/27/2016 Patient Education: Patient Medication Summary Completed 04/27/2016 Patient Education: Smoking and Tobacco Addiction Completed 04/27/2016 Patient Education: Obesity Completed 04/27/2016 Appointment: [facility]urt [id number] ([facility] [place]) Complex 04/22/2016 Visit Plan: Pt states that she just had neck surgery yesterday in [place] - today she is complaining of a cough and worried about it getting worse because she just had the surgery - Pt advised to increase fluids, vitamin C. Discussed natural and expected course of this diagnosis and need to alert me if symptoms do not follow expected course, or if any worse. RX sent to patient's pharmacy. 03/18/2016 Appointment: Kelsie Burt WPtel: [phone] [facility] (30 min) Complex 03/18/2016 Patient Education: Patient Medication Summary Completed 03/18/2016 Patient Education: Smoking and Tobacco Addiction Completed 03/18/2016 Patient Education: Obesity Completed 03/18/2016 Appointment: S[facility] Gustafson [facility]el[id number] (30 min) Complex 10/21/2015 Care Plan: BMI [...] allergy spray. 09/04/2015 Appointment: [facility]urt [id number] (15 min) Moderate 09/04/2015 Patient Education: Patient [...] cessation. 07/08/2015 Appointment: [facility]ed[facility]el[phone] ([facility] min) Moderate 07/08/2015 Patient Education: Patient [...] cervical spine. 05/19/2015 Appointment: [facility]ed[id number] ([facility] min) Moderate 05/19/2015 Patient Education: Patient [...] glucose control. 03/31/2015 Appointment: Soledad Romero [facility]Ptel[facility] [phone] [facility] [place] (15 min) Moderate 03/31/2015 Patient Education: Patient Medication Summary Completed 03/31/2015 Patient Education: Hypertension Completed 03/31/2015 Patient Education: .Cervicalgia Neck Pain Completed 03/31/2015 Appointment: [facility]edad Romero [facility]el[phone] [id number] [place] (15 min) Moderate 03/10/2015 Visit Plan: Cervical spine stenosis - recommended pt to have an evaluation with Neurosurgery for possible surgical intervention. Po for MRI of lumbar spine. 02/03/2015 Appointment: Soledad Romero WPtel: [facility] (15 min) Moderate 02/03/2015 Patient Education: Patient [...] and naproxen. 12/31/2014 Appointment: Soledad Romero WPtel: [facility] (15 min) Moderate 12/31/2014 Patient Education: Patient [...] not improve. 10/03/2014 Appointment: Soledad Romero WPtel: [facility] New Patient 10/03/2014 Patient Education: Patient Medication Summary Completed 10/03/2014 Referral: External, Ordering Provider Referral Completed Referral: [facility] Referral Appointment Requested Referral: External, Ordering [...] she just had neck surgery yesterday in [place] - today she is complaining of a [...] have recommended pt to have evaluation by patient financial specialist - Dr. Young. She needs stress [...] have recommended pt to have evaluation by patient financial specialist - Dr. Young. She needs stress [...]
--- OUTSIDE RECORDS SUMMARY | 2018-04-03 07:34 | XMS REPORT | CCD ---
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 Name Role Phone PP Unavailable CCM Unavailable Summary Purpose Interface Exchange Insurance Providers Payer name Policy type / Coverage type Covered democrat ID Effective Begin Date Effective End Date Blue Cross Blue [facility] Blue Cross/Blue Shield [id number] 2016 Unknown Family history Father Diagnosis Age At Onset Stroke Unknown Osteoporosis Unknown Hypertension Unknown Hyperlipidemia Unknown Son Diagnosis Age At Onset defect Unknown Asthma Unknown Mother Diagnosis Age At Onset Stroke Unknown Hypertension Unknown Diabetes Unknown Osteoporosis Unknown Social History Social History Element Codes Description Effective Dates Marital status Unknown Alex 06/29/2016 Number of children Unknown 3 10/03/[address]: 02941449 Current every day smoker 10/03/2014 Number of years using tobacco Unknown 30 - 40 10/03/2014 Number of cigarettes/day Unknown 30 ( Pack and a half) 10/03/[address]: 492113517 Never drinks alcohol 10/03/2014 Allergies, Adverse Reactions, Alerts Substance Reaction Codes Entered Date Inactivated Date Status * OTHER REACTION - SEE ANSWER BOX Unknown 06/29/2016 No Inactive Date Active NO KNOWN DRUG ALLERGIES Unknown 10/03/2014 No Inactive Date Active Past Medical History Illness Codes Condition Status Onset Date Resolved Date Essential (primary) hypertension ICD-9: 401.9 ICD-10: I10 Active 04/26/2016 Unknown Muscle spasm of back ICD-9: 724.8 ICD-10: M62.830 Active 09/20/2017 Unknown Radiculopathy, cervicothoracic region ICD-9: 723.1 ICD-10: M54.13 Active 09/08/2015 Unknown Type 2 diabetes mellitus with hyperglycemia ICD-9: 250.00 ICD-10: E11.65 Active 04/26/2016 Unknown Palpitations ICD-9: 785.1 ICD-10: R00.2 Active 01/24/2017 Unknown Dysuria ICD-9: 788.1 ICD-10: R30.0 Active [...] ICD-9: 461.8 ICD-10: J01.80 Active 05/17/2016 Unknown Morbid (severe) obesity due to excess calories ICD-9: 278.01 ICD-10: E66.01 Active 04/26/2016 Unknown Other muscle spasm ICD -9: 728.85 [...] hypertension ICD-9: 401.9 ICD-10: I10 04/26/2016 Active Muscle spasm of back ICD-9: 724.8 ICD-10: M62.830 09/20/2017 Active Radiculopathy, cervicothoracic region ICD-9: 723.1 ICD-10: M54.13 09/08/2015 Active Type 2 diabetes mellitus with hyperglycemia ICD-9: 250.00 ICD-10: E11.65 04/26/2016 Active Palpitations ICD-9: 785.1 ICD-10: R00.2 01/24/2017 Active Dysuria ICD-9: 788.1 ICD-10: R30.0 12/24/2016 [...] sinusitis ICD-9: 461.8 ICD-10: J01.80 05/17/2016 Active Morbid (severe) obesity due to excess calories ICD-9: 278.01 ICD-10: E66.01 04/26/2016 Active Other muscle spasm ICD -9: 728.85 [...] Start Date Stop Date Status Fill Instructions furosemide 20 mg tablet RxNorm: 471831 TABLET(S) 1 TABLET(S) PO DAILY 12/08/2017 04/06/2018 Active losartan 50 mg tablet RxNorm: 783045 1 Tablet(s) PO daily TAKE 1 TABLET BY MOUTH DAILY 09/26/2017 03/24/2018 Active Skelaxin 800 mg tablet RxNorm: 387244 1 Tablet(s) PO TID 201710/19/2017 Inactive gabapentin 300 mg capsule RxNorm: 399302 1 Capsule(s) PO BID 10/15/2017 Inactive losartan 25 mg tablet RxNorm: 810792 TAKE 1 TABLET BY MOUTH DAILY 09/16/2017 09/25/2017 Inactive naproxen 500 mg tablet RxNorm: 785694 1 TABLET(S) PO BID 201711/21/2017 Inactive Tamiflu 75 mg capsule RxNorm: 470693 1 Capsule(s) PO BID 201706/26/2017 Inactive Levaquin 500 mg tablet RxNorm: 229814 1 Tablet(s) PO daily 03/201806/26/2017 Inactive Tamiflu 75 mg capsule RxNorm: 210726 1 Capsule(s) PO BID 201707/01/2017 Inactive Levaquin 500 mg tablet RxNorm: 841290 1 Tablet(s) PO daily 03/201807/03/2017 Inactive Trilipix 135 mg capsule,delayed release RxNorm: 486329 1 Capsule(s) PO daily 12/24/2016 03/23/2017 Inactive Keflex 500 mg capsule RxNorm: 386440 1 Capsule(s) PO TID 201612/30/2016 Inactive Keflex 500 mg capsule RxNorm: 735071 1 Capsule(s) PO TID 201612/23/2016 Inactive Trilipix 135 mg capsule,delayed release RxNorm: 132670 1 Capsule(s) PO daily 12/24/2016 12/23/2016 Inactive losartan 25 mg tablet RxNorm: 734889 2 Tablet(s) daily 201601/25/2017 Inactive metformin ER 1,000 mg tablet,extended release 24hr RxNorm: 924341 1 Tablet(s) PO daily 12/13/2016 07/10/2017 Inactive furosemide 20 mg tablet RxNorm: 385914 TABLET(S) 1 TABLET(S) PO DAILY 12/03/2016 04/01/2017 Inactive triamcinolone acetonide 0.025 % topical cream RxNorm: 0298295 1 Application TOP BID 11/23/2016 No Stop Date Active losartan 25 mg tablet RxNorm: 323989 TAKE 1 TABLET BY MOUTH DAILY 11/09/2016 12/12/2016 Inactive metformin 500 mg tablet RxNorm: 169197 3 Tablet(s) PO UD 1 in the morning and two pills at night. 08/17/2016 12/12/2016 Inactive naproxen 500 mg tablet RxNorm: 125467 1 Tablet(s) PO BID 201611/29/2016 Inactive Keflex 500 mg capsule RxNorm: 933191 1 Capsule(s) PO BID 201606/16/2016 Inactive prednisone 10 mg tablet RxNorm: 902358 1 Tablet(s) PO UD 201611/18/2016 Inactive 6,5,4,3,2,1 albuterol sulfate 2.5 mg/3 mL (0.083 %) solution for nebulization RxNorm: 922000 3 Milliliter(s) INH Q4-6H as needed 05/19/2016 11/17/2016 Inactive Augmentin 500 mg-125 mg tablet RxNorm: 914483 1 Tablet(s) PO TID 05/17/2016 05/26/2016 Inactive hydrocodone 5 mg-acetaminophen 325 mg tablet RxNorm: 212741 Tablet(s) PO prescribed by ortho 04/19/2016 01/19/2017 Inactive furosemide 20 mg tablet RxNorm: 463752 Tablet(s) 1 TABLET(S) PO DAILY 03/24/2016 07/21/2016 Inactive metformin 500 mg tablet RxNorm: 490491 1 Tablet(s) PO BID 03/2407/21/2016 Inactive levofloxacin 500 mg tablet RxNorm: 048808 1 Tablet(s) PO daily 03/18/2016 05/03/2016 Inactive furosemide 20 mg tablet RxNorm: 238478 1 TABLET(S) PO DAILY 03/23/2016 Inactive Lipitor 10 mg tablet RxNorm: 555759 1 TABLET(S) PO QPM 201512/12/2016 Inactive betamethasone dipropionate 0.05 % topical cream RxNorm: 643368 1 Application TOP BID 09/09/2015 01/21/2017 Inactive prednisone 10 mg tablet RxNorm: 042987 Tablet(s) PO UD 201505/03/2016 Inactive 6,5,4,3,2,1 albuterol sulfate 2.5 mg/3 mL (0.083 %) solution for nebulization RxNorm: 329953 3 Milliliter(s) INH Q4-6H as needed 09/04/2015 05/18/2016 Inactive Kenalog 40 mg/mL suspension for injection RxNorm: 6782716 Milliliter(s) Inj 09/04/2015 09/04/2015 Inactive levofloxacin 500 mg tablet RxNorm: 653030 1 Tablet(s) PO daily 09/01/2015 03/17/2016 Inactive gabapentin 300 mg capsule RxNorm: 213282 1 Capsule(s) PO BID 09/15/2017 Inactive losartan 25 mg tablet RxNorm: 351870 1 Tablet(s) PO daily 201502/02/2016 Inactive Lipitor 10 mg tablet RxNorm: 828757 1 Tablet(s) PO QPM 201508/22/2015 Inactive furosemide 20 mg tablet RxNorm: 833181 1 Tablet(s) PO daily 04/201407/15/2015 Inactive metformin 500 mg tablet RxNorm: 453591 2 Tablet(s) PO BID 12/3104/29/2015 Inactive gabapentin 300 mg capsule RxNorm: 097705 1 Capsule(s) PO QHS 07/09/2015 Inactive Lipitor 10 mg tablet RxNorm: 682589 1 Tablet(s) PO QPM 201412/03/2014 Inactive metformin 500 mg tablet RxNorm: 262124 1/2 Tablet(s) PO QPM x1 week and then 1/2 tab bid x 1 week then 500mg 1 tab bid there after 12/04/2014 12/03/2014 Inactive metformin 500 mg tablet RxNorm: 854874 1/2 Tablet(s) PO QPM x1 week and then 1/2 tab bid x 1 week then 500mg 1 tab bid there after 12/04/2014 12/30/2014 Inactive Lipitor 10 mg tablet RxNorm: 111515 1 Tablet(s) PO QPM 201401/02/2015 Inactive clotrimazole-betamethasone 1 %-0.05 % topical cream RxNorm: 870337 1 Application TOP ordered by shoe repair cobbler No Start Date Active ProAir HFA 90 mcg/actuation aerosol inhaler RxNorm: 8960055 INH as needed No Start Date Active coenzyme Q10 100 mg capsule RxNorm: 826903 1 Capsule(s) PO daily No Start Date Active baclofen 10 mg tablet RxNorm: 154903 1 Tablet(s) PO TID as needed muscle spasms No Start Date Active Calcium RxNorm: 1 PO daily No Start Date Active multivitamin with calcium carb and iron tablet RxNorm: 1 Tablet(s) PO daily No Start Date Active Shantelle-D 24 Hour oral RxNorm: 442758 oral No Start Date Active Refresh Dry Eye Therapy RxNorm: 376571 ophthalmic (eye) No Start Date Active gabapentin 300 mg capsule RxNorm: 650452 1 Capsule(s) PO daily No Start Date Active triamcinolone acetonide 0.025 % topical cream RxNorm: 6587593 1 Application TOP ordered by dermatolgy No Start Date Active naproxen 500 mg tablet RxNorm: 953590 1 Tablet(s) PO BID as needed No Start Date Active multivitamin capsule RxNorm: 1 Capsule(s) PO daily No Start Date Active Vesicare 5 mg tablet RxNorm: 204498 1 Tablet(s) PO daily prescribed by Dr. Rm No Start Date Active amlodipine 5 mg tablet RxNorm: 425370 1 Tablet(s) PO daily No Start Date 12/12/2016 Inactive tramadol 50 mg tablet RxNorm: 265050 1 Tablet(s) PO Q4 PRN No Start Date 03/11/2015 Inactive naproxen 500 mg tablet RxNorm: 923938 1 Tablet(s) PO BID No Start Date 08/01/2016 Inactive furosemide 20 mg tablet RxNorm: 690659 1 Tablet(s) PO daily No Start Date 03/17/2015 Inactive cyclobenzaprine 10 mg tablet RxNorm: 754754 1 Tablet(s) PO Q8 PRN No Start Date 07/09/2015 Inactive levofloxacin 500 mg tablet RxNorm: 137469 1 Tablet(s) PO daily No Start Date 12/30/2014 Inactive gabapentin 100 mg capsule RxNorm: 364715 1 Capsule(s) PO TID No Start Date 12/30/2014 Inactive potassium gluconate 550 mg (90 mg) tablet RxNorm: 4933139 oral No Start Date 12/12/2016 Inactive Medication Administered Medication Codes Instructions Start Date Status Kenalog 40 mg/mL suspension for injection RxNorm: 7088509 Milliliter 09/04/2015 No longer Active Immunizations No Immunization data Assessments Condition Codes Effective Dates Muscle spasm of back ICD-10: M62.830 ICD-9: 724.8 09/20/2017 Radiculopathy, cervicothoracic region ICD-10: M54.13 ICD-9: 723.1 09/20/2017 Essential (primary) hypertension ICD-10: I10 ICD-9: 401.9 09/20/2017 Type 2 diabetes mellitus with hyperglycemia ICD-10: E11.65 ICD-9: 250.00 09/20/2017 Palpitations ICD-10: R00.2 ICD-9: 785.1 01/24/2017 Dysuria ICD-10: R30.0 ICD-9: 788.1 12/24/2016 Rash and other nonspecific skin eruption ICD-10: R21 ICD-9: 782.1 11/23/2016 Dyshidrosis [pompholyx] ICD-10: L30.1 ICD-9: 705.81 11/23/2016 Tobacco use ICD-10: Z72.0 ICD-9: 305.1 06/29/2016 Myalgia ICD-10: M79.1 ICD-9: 729.1 06/07/2016 Acute laryngopharyngitis ICD-10: J06.0 ICD-9: 465.0 06/07/2016 Other allergic rhinitis ICD-10: J30.89 ICD-9: 477.8 06/07/2016 Other acute sinusitis ICD-10: J01.80 ICD-9: 461.8 05/17/2016 Morbid (severe) obesity due to excess calories ICD-10: E66.01 ICD-9: 278.01 04/27/2016 Other muscle spasm ICD-10: M62.838 ICD-9: 728.85 [...] Reason For Visit Effective Dates Notes hypertension 09/20/2017 medication follow up 01/24/2017 hypertension 12/13/2016 skin lesion 11/23/2016 hypertension 08/17/2016 hypertension 06/29/2016 sinus congestion 06/07/2016 sinus congestion 05/17/2016 fatigue 04/27/2016 cough 03/18/2016 back pain 09/09/2015 cough 09/04/2015 back pain 07/08/2015 back pain 05/19/2015 back pain 03/31/2015 back pain 02/03/2015 back pain 12/31/2014 back pain 10/03/2014 Results Observation Observation Code Item Item Code Result Date %Hba1C Jxw123 % HbA1c 34763-7 7.8 % 12/14/2016 %Hba1C Oxf396 Gluc Ave 177 mg/dL 12/14/2016 Microalbumin Ozf045 MicroAlb 2.4 mg/dL 12/14/2016 Lipid Ord30 CHOL 156 mg/dL 12/14/2016 Lipid Ord30 HDL 37.0 mg/dl 12/14/2016 Lipid Ord30 TRIG 257 mg/dL 12/14/2016 Lipid Ord30 LDL 68 mg/dL 12/14/2016 Lipid Ord30 C/HDL 4.2 Ratio 12/14/2016 Cbc With Differential Ord2 WBC 11.71 K/ul 12/14/2016 Cbc With Differential Ord2 RBC 4.87 M/ul 12/14/2016 Cbc With Differential Ord2 HGB 14.4 g/dl 12/14/2016 Cbc With Differential Ord2 HCT 42.8 % 12/14/2016 Cbc With Differential Ord2 Neut% 59.0 % 12/14/2016 Cbc With Differential Ord2 MCV 87.9 fl 12/14/2016 Cbc With Differential Ord2 Lymph% 33.1 % 12/14/2016 Cbc With Differential Ord2 [place]% 6.5 % 12/14/2016 Cbc With Differential Ord2 MCH 29.6 pg 12/14/2016 Cbc With Differential Ord2 MCHC 33.6 pg 12/14/2016 Cbc With Differential Ord2 Eos% 1.2 % 12/14/2016 Cbc With Differential Ord2 PLT 306 K/ul 12/14/2016 Cbc With Differential Ord2 Baso% 0.2 % 12/14/2016 Cbc With Differential Ord2 RDW 15.3 % 12/14/2016 Cbc With Differential Ord2 Neut ABS# 6.91 K/ul 12/14/2016 Cbc With Differential Ord2 Lymph ABS# 3.88 K/ul 12/14/2016 Cbc With Differential Ord2 [place] ABS# 0.8 K/ul 12/14/2016 Cbc With Differential Ord2 Eos ABS# 0.1 K/ul 12/14/2016 Cbc With Differential Ord2 Baso ABS# 0.0 K/ul 12/14/2016 Comp Metabolic Bfw195 NA 139 mEq/L 12/14/2016 Comp Metabolic Oub655 K 4.2 mEq/L 12/14/2016 Comp Metabolic Rnz971 CL 102 mEq/L 12/14/2016 Comp Metabolic Amu613 CO2 25.0 mEq/L 12/14/2016 Comp Metabolic Uos543 ANION GAP 16 12/14/2016 Comp Metabolic Zbo993 GLUCOSE 150 mg/dL 12/14/2016 Comp Metabolic Spq325 Creat 0.5 mg/dL 12/14/2016 Comp Metabolic Ybj825 eGFR 124 ml/min/1.73m2 12/14/2016 Comp Metabolic Geq192 BUN 14 mg/dL 12/14/2016 Comp Metabolic Gzz103 B/C Ratio 25.9 Ratio 12/14/2016 Comp Metabolic Uju098 CALCIUM 9.2 mg/dL 12/14/2016 Comp Metabolic Wmm657 ALK PHOS 121 U/L 12/14/2016 Comp Metabolic Ktq174 AST(SGOT) 20 U/L 12/14/2016 Comp Metabolic Vio529 ALT(SGPT) 22 U/L 12/14/2016 Comp Metabolic Qje690 BILI T 0.3 mg/dL 12/14/2016 Comp Metabolic Jcd907 ALBUMIN 3.9 g/dL 12/14/2016 Comp Metabolic Uva026 TPRO 6.8 g/dL 12/14/2016 Comp Metabolic Ghb670 GLOB 2.9 g/dL 12/14/2016 Comp Metabolic Evo541 A/G Ratio 1.3 Ratio 12/14/2016 Comp Metabolic Vul128 Osmo 281 mOsmo 12/14/2016 Tsh Ord6 hTSH II 2.18 uIU/mL 12/14/2016 Sed Rate Ord21 ESR 9 mm/hr 04/28/2016 %Hba1C Yqp279 % HbA1c 26369-7 7.7 % 04/27/2016 %Hba1C Aii601 Gluc Ave 174 mg/dL 04/27/2016 Comp Metabolic Vmr536 NA 136 mEq/L 04/27/2016 Comp Metabolic Yui741 K 3.9 mEq/L 04/27/2016 Comp Metabolic Dku918 CL 101 mEq/L 04/27/2016 Comp Metabolic Npb640 CO2 25.0 mEq/L 04/27/2016 Comp Metabolic Wsg866 ANION GAP 14 04/27/2016 Comp Metabolic Cvo062 GLUCOSE 204 mg/dL 04/27/2016 Comp Metabolic Rjy378 Creat 0.6 mg/dL 04/27/2016 Comp Metabolic Ejb289 eGFR 104 ml/min/1.73m2 04/27/2016 Comp Metabolic Fji783 BUN 13 mg/dL 04/27/2016 Comp Metabolic Plc647 B/C Ratio 20.6 Ratio 04/27/2016 Comp Metabolic Yql599 CALCIUM 9.0 mg/dL 04/27/2016 Comp Metabolic Wqq727 ALK PHOS 119 U/L 04/27/2016 Comp Metabolic Brh171 AST(SGOT) 13 U/L 04/27/2016 Comp Metabolic Nta452 ALT(SGPT) 12 U/L 04/27/2016 Comp Metabolic Nzt210 BILI T 0.3 mg/dL 04/27/2016 Comp Metabolic Efk216 ALBUMIN 3.9 g/dL 04/27/2016 Comp Metabolic Tzh248 TPRO 6.8 g/dL 04/27/2016 Comp Metabolic Djv011 GLOB 2.9 g/dL 04/27/2016 Comp Metabolic Wis026 A/G Ratio 1.3 Ratio 04/27/2016 Comp Metabolic Lzd910 Osmo 278 mOsmo 04/27/2016 Tsh Ord6 hTSH II 1.82 uIU/mL 04/27/2016 Cbc With Differential Ord2 WBC 11.44 K/ul 04/27/2016 Cbc With Differential Ord2 RBC 4.78 M/ul 04/27/2016 Cbc With Differential Ord2 HGB 13.9 g/dl 04/27/2016 Cbc With Differential Ord2 Neut% 58.9 % 04/27/2016 Cbc With Differential Ord2 HCT 41.6 % 04/27/2016 Cbc With Differential Ord2 MCV 87.0 fl 04/27/2016 Cbc With Differential Ord2 Lymph% 34.4 % 04/27/2016 Cbc With Differential Ord2 MCH 29.1 pg 04/27/2016 Cbc With Differential Ord2 [place]% 5.3 % 04/27/2016 Cbc With Differential Ord2 [...] 3.93 K/ul 04/27/2016 Cbc With Differential Ord2 [place] ABS# 0.6 K/ul 04/27/2016 Cbc With Differential Ord2 Eos ABS# 0.1 K/ul 04/27/2016 Cbc With Differential Ord2 Baso ABS# 0.0 K/ul 04/27/2016 %Hba1C Ecj039 % HbA1c 12352-3 7.4 % 03/31/2015 %Hba1C Mwq481 Gluc Ave 166 mg/dL 03/31/2015 Lipid Ord30 CHOL 169 mg/dL 11/26/2014 Lipid Ord30 HDL 31.0 mg/dl 11/26/2014 Lipid Ord30 TRIG 302 mg/dL 11/26/2014 Lipid Ord30 LDL 78 mg/dL 11/26/2014 Lipid Ord30 C/HDL 5.5 Ratio 11/26/2014 %Hba1C Fuf475 % HbA1c 77892-5 8.6 % 11/26/2014 %Hba1C Bfg453 Gluc Ave 200 mg/dL 11/26/2014 B12 Grn957 B12 332.00 pg/ml 11/26/2014 Cbc With Differential Ord2 WBC 8.2 [...] With Differential Ord2 RDW 15.7 % 11/26/2014 Tsh Ord6 hTSH II 1.92 uIU/mL 11/26/2014 Folate Ord36 Folate 9.70 ng/mL 11/26/2014 Comp Metabolic Ygx162 NA 135 mEq/L 11/26/2014 Comp Metabolic Kmf126 K 4.3 mEq/L 11/26/2014 Comp Metabolic Neo596 CL 101 mEq/L 11/26/2014 Comp Metabolic Qnu864 CO2 26.0 mEq/L 11/26/2014 Comp Metabolic Ofc957 ANION GAP 12 11/26/2014 Comp Metabolic Upj385 GLUCOSE 163 mg/dL 11/26/2014 Comp Metabolic Hbo343 Creat 0.6 mg/dL 11/26/2014 Comp Metabolic Dmf173 eGFR 123 ml/min/1.73m2 11/26/2014 Comp Metabolic Csv943 BUN 12 mg/dL 11/26/2014 Comp Metabolic Ult160 B/C Ratio 21.8 Ratio 11/26/2014 Comp Metabolic Cyi656 CALCIUM 9.0 mg/dL 11/26/2014 Comp Metabolic Mkt113 ALK PHOS 120 U/L 11/26/2014 Comp Metabolic Hnp025 AST(SGOT) 64 U/L 11/26/2014 Comp Metabolic Fae712 ALT(SGPT) 50 U/L 11/26/2014 Comp Metabolic Hph929 BILI T 0.5 mg/dL 11/26/2014 Comp Metabolic Hbn625 ALBUMIN 3.8 g/dL 11/26/2014 Comp Metabolic Hhz586 TPRO 6.5 g/dL 11/26/2014 Comp Metabolic Xpl371 GLOB 2.7 g/dL 11/26/2014 Comp Metabolic Tgm347 A/G Ratio 1.4 Ratio 11/26/2014 Comp Metabolic Amn973 Osmo 273 mOsmo 11/26/2014 Review of Systems System Result Effective Dates Constitutional fatigue 09/20/2017 Constitutional No fever 09/20/2017 [...] 10/03/2014 None Procedures Procedure Codes Date TOBACCO-USE 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 OPERATOR 3-[address]: 118025986 CPT-4: G0436 12/24/2016 URINALYSIS NONAUTO W/O SCOPE CPT-4: 99360 12/24/2016 TOBACCO-USE JACKHAMMER SPLITTER OPERATOR 3-[address]: 260541355 CPT-4: G0436 06/29/2016 TOBACCO-USE JACKHAMMER SPLITTER OPERATOR 3-[address]: 313405435 CPT-4: G0436 09/09/2015 TRIAMCINOLONE ACET INJ NOS CPT-4: J3301 09/04/2015 TOBACCO-USE JACKHAMMER SPLITTER OPERATOR 3-[address]: 389779477 CPT-4: G0436 07/08/2015 TOBACCO-USE JACKHAMMER SPLITTER OPERATOR 3-[address]: 864614536 CPT-4: G0436 05/19/2015 Vital Signs Date Vital 09/20/2017 Heart Rate 1: 86 bpm Height: SpO2: 98% Weight: 01/24/2017 Blood Pressure 1: 142/80 Code : 8480-6 BMI: 52.2 Code : 95538-3 Heart Rate 1 : 75 bpm Height: 5'4" SpO2: 94% Weight: 304 lbs 12/13/2016 Blood Pressure 1: 132/74 Code : 8480-6 BMI: 51.8 Code : 60549-4 Heart Rate 1 : 73 bpm Height: 5'4" SpO2: 98% Weight: 302 lbs 11/23/2016 Blood Pressure 1: 136/80 Code : 8480-6 BMI: 52.5 Code : 63820-9 Heart Rate 1 : 76 bpm Height: 5'4" SpO2: 97% Weight: 306 lbs 08/17/2016 Blood Pressure 1: 138/80 Code : 8480-6 BMI: 52.5 Code : 76711-5 Heart Rate 1 : 73 bpm Height: 5'4" SpO2: 97% Weight: 306 lbs 06/29/2016 Blood Pressure 1: 136/78 Code : 8480-6 BMI: 51.5 Code : 01619-2 Heart Rate 1 : 83 bpm Height: 5'4" SpO2: 98% Weight: 300 lbs 06/07/2016 Blood Pressure 1: 136/72 Code : 8480-6 BMI: 51.2 Code : 78579-3 Heart Rate 1 : 82 bpm Height: 5'4" SpO2: 95% Weight: 298 lbs 05/17/2016 Blood Pressure 1: 140/90 Code : 8480-6 BMI: 51.7 Code : 04810-3 Heart Rate 1 : 90 bpm Height: 5'4" SpO2: 97% Weight: 301 lbs 04/27/2016 Blood Pressure 1: 130/72 Code : 8480-6 Heart Rate 1: 77 bpm SpO2: 98% Weight: 302 lbs 03/18/2016 Blood Pressure 1: 130/60 Code : 8480-6 BMI: 52.4 Code : 18287-2 Heart Rate 1 : 80 bpm Height: 5'4" SpO2: 92% Weight: 305 lbs 09/09/2015 Blood Pressure 1: 146/78 Code : 8480-6 BMI: 53.4 Code : 89134-6 Heart Rate 1 : 82 bpm Height: 5'4" SpO2: 92% Weight: 311 lbs 09/04/2015 Blood Pressure 1: 160/74 Code : 8480-6 BMI: 54.6 Code : 48771-5 Heart Rate 1 : 88 bpm Height: 5'4" SpO2: 83% SpO2: 95% Weight: 318 lbs 07/08/2015 Blood Pressure 1: 150/82 Code : 8480-6 BMI: 53.7 Code : 24055-0 Heart Rate 1 : 84 bpm Height: 5'4" SpO2: 95% Weight: 313 lbs 05/19/2015 Blood Pressure 1: 132/70 Code : 8480-6 BMI: 53.7 Code : 33515-8 Heart Rate 1 : 83 bpm Height: 5'4" SpO2: 97% Weight: 313 lbs 03/31/2015 Blood Pressure 1: 138/86 Code : 8480-6 BMI: 53.1 Code : 42006-1 Heart Rate 1 : 79 bpm Height: 5'4" SpO2: 95% Weight: 309 lbs 8 oz 02/03/2015 Blood Pressure 1: 146/80 Code : 8480-6 BMI: 53.2 Code : 13500-0 Heart Rate 1 : 80 bpm Height: 5'4" SpO2: 98% Weight: 310 lbs 12/31/2014 Blood Pressure 1: 140/78 Code : 8480-6 BMI: 51.4 Code : 97936-5 Heart Rate 1 : 81 bpm Height: 5'4" SpO2: 95% Weight: 299 lbs 5 oz 10/03/2014 Blood Pressure 1: 140/84 Code : 8480-6 Heart Rate 1: 84 bpm Respiratory Rate : 20 bpm SpO2: 96% Weight: 310 lbs Functional Status No Functional Status data History of Present Illness Symptom Name Status Result Effective Date Notes hypertension Onset and Resolution ongoing 09/20/2017 None [...] data Encounters Encounter Performer Location Codes Date 21606 EST. PATIENT, LEVEL IV Diagnosis: Type 2 diabetes mellitus with hyperglycemia[ICD10: E11.65] Diagnosis: Essential (primary) hypertension[ICD10: I10] Diagnosis: Muscle spasm of back[ICD10: M62.830] Diagnosis: Radiculopathy, cervicothoracic region[ICD10: M54.13] Kelsie Romero MD, [facility] CPT-4: 48327 09/20/2017 17498 EST. PATIENT, LEVEL III Diagnosis: Essential (primary) hypertension[ICD10: I10] Diagnosis: Palpitations[ICD10: R00.2] Kelsie Romero MD, [facility] CPT-4 : 02809 01/24/2017 ([id number]) 65654 EST. PATIENT, LEVEL IV Diagnosis: Type 2 diabetes mellitus with hyperglycemia[ICD10: E11.65] Diagnosis: Essential (primary) hypertension[ICD10: I10] Soledad Romero MD, [facility] CPT-4: 09426 12/13/2016 29297 EST. PATIENT, LEVEL III Diagnosis: Rash and other nonspecific skin eruption[ICD10: R21] Diagnosis: Dyshidrosis [pompholyx][ICD10: L30.1] Kelsie Romero MD, [facility] CPT-4: 35177 11/23/2016 ([id number]) 72873 EST. PATIENT, LEVEL IV Diagnosis: Type 2 diabetes mellitus with hyperglycemia[ICD10: E11.65] Diagnosis: Essential (primary) hypertension[ICD10: I10] Soledad Romero MD, [facility] CPT-4: 22149 08/17/2016 ([id number]) 15094 EST. PATIENT, LEVEL IV Diagnosis: Type 2 diabetes mellitus with hyperglycemia[ICD10: E11.65] Diagnosis: Essential (primary) hypertension[ICD10: I10] Diagnosis: Tobacco use[ICD10: Z72.0] Soledad Romero MD, [facility] CPT-4: 45595 06/29/2016 78940 EST. PATIENT, LEVEL IV Diagnosis: Acute laryngopharyngitis[ICD10: J06.0] Diagnosis: Other allergic rhinitis[ICD10: J30.89] Diagnosis: Myalgia[ICD10: M79.1] Kelsie Romero MD, [facility] CPT-4: 07673 06/07/2016 79587 EST. PATIENT, LEVEL IV Diagnosis: Other acute sinusitis[ICD10: J01.80] Diagnosis: Other allergic rhinitis[ICD10: J30.89] Kelsie Romero MD, [facility] CPT-4: 60243 05/17/2016 [id number] EST. PATIENT, LEVEL IV Diagnosis: Type 2 diabetes mellitus with hyperglycemia[ICD10: E11.65] Diagnosis: Essential (primary) hypertension[ICD10: I10] Diagnosis: Other muscle spasm[ICD10: M62.838] Diagnosis: Morbid (severe) obesity due to excess calories[ICD10: E66.01] Kelsie Romero MD , [facility] CPT-4: 02099 04/27/2016 79624 EST. PATIENT, LEVEL III Diagnosis: Morbid (severe) obesity due to excess calories[ICD10: E66.01] Diagnosis: Acute laryngopharyngitis[ICD10: J06.0] Diagnosis: Cough[ICD10: R05] Kelsie Romero MD, [facility] CPT-4: 43805 03/18/2016 73585 EST. PATIENT, LEVEL IV Diagnosis: Essential (primary) hypertension[ICD10: I10] Diagnosis: Radiculopathy, cervicothoracic region[ICD10: M54.13] Diagnosis: Spinal stenosis, lumbar region[ICD10: M48.06] Diagnosis: Rash and other nonspecific skin eruption[ICD10: R21] Diagnosis: Morbid (severe) obesity due to excess calories[ICD10: E66.01] Diagnosis: Tobacco use[ICD10: Z72.0] Kelsie Romero MD, [facility] CPT-4: 85811 09/09/2015 [id number] EST. PATIENT, LEVEL IV Diagnosis: Acute laryngopharyngitis[ICD10: J06.0] Diagnosis: Wheezing[ICD10: R06.2] Diagnosis: Shortness of breath[ICD10: R06.02] Kelsie Romero MD, [facility] CPT-4: 24734 09/04/2015 ([id number]) 78232 EST. PATIENT, LEVEL IV Diagnosis: Essential (primary) hypertension[ICD10: I10] Diagnosis: Morbid (severe) obesity due to excess calories[ICD10: E66.01] Diagnosis: Tobacco use[ICD10: Z72.0] Soledad Romero MD, [facility] CPT-4: 28924 07/08/2015 ([id number]) 13226 EST. PATIENT, LEVEL IV Diagnosis: Type 2 diabetes mellitus with hyperglycemia[ICD10: E11.65] Diagnosis: Spinal stenosis, lumbar region[ICD10: M48.06] Diagnosis: Morbid (severe) obesity due to excess calories[ICD10: E66.01] Diagnosis: Tobacco use[ICD10: Z72.0] Soledad Romero MD [facility] CPT-4: 35093 05/19/2015 [id number]) 92381 EST. 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 PATIENT, LEVEL III Diagnosis: Spinal stenosis, lumbar region[ICD10: M48.06] Soledad Romero MD [facility] CPT-4: 24694 02/03/2015 [id number]) [id number] EST. PATIENT, LEVEL IV Diagnosis: DIABETES TYPE II[ICD9: 250.00] Diagnosis: ESSENTIAL HYPERTENSION[ICD9: 401.9] Diagnosis: Neck pain[ICD9: 723.1] Diagnosis: Muscle spasms of neck[ICD9: 728.85] Diagnosis: Abdominal cramping[ICD9: 789.00] Soledad Romero MD, [facility] CPT-4: 31798 12/31/2014 ([id number]) PREV VISIT NEW AGE 40-64 Diagnosis: Routine medical exam[ICD9: V70.0] Soledad Romero MD, [facility] CPT-4: 16556 10/03/2014 Plan of Care Planned Activity Notes Codes Status Date Visit Plan: Hypertension - well controlled - [...] practice. 09/20/2017 Appointment: Kelsie Burt WPtel: [phone] [phone] (30 min) Complex 09/20/2017 Patient Education: Patient Medication Summary Completed 09/20/2017 Appointment: Soledad Romero WPtel: [phone] [phone] (15 min) Moderate 04/05/2017 Visit Plan: Hypertension [...] [phone] ([facility] Complex 01/24/2017 Patient Education: [...] disease. 12/13/2016 [phone] ([facility] 12/13/2016 Patient Education: Patient Medication Summary Completed 12/13/2016 Patient Education: Smoking and Tobacco Addiction Completed 12/13/2016 Patient Education: Obesity Completed 12/13/2016 Patient Education: Hypertension Completed 12/13/2016 Care Plan: Comp Metabolic Pending 12/13/2016 Care Plan: Cbc With Differential Pending 12/13/2016 Care Plan: %Hba1C LOINC : 07181-9 Pending 12/13/2016 Care Plan: Lipid Pending 12/13/2016 Care Plan: Tsh Pending 12/13/2016 Care Plan: Microalbumin Pending 12/13/2016 Visit Plan: Rash and dyshydrosis - Pt is to keep her dermatology appointment - The patient was instructed to use the ointment as per RX. The patient is to call for any change in symptoms, increase in size of the lesion, increase in pain, redness, warmth, discharge. 11/23/2016 Appointment: [phone] [place] ([place]) Complex 11/23/2016 Patient Education: [...] control. 08/17/2016 App[facility]ment: [phone] ([facility]) Complex 08/17/2016 Patient Education: Patient Medication Summary Completed 08/17/2016 Patient Education: Smoking and Tobacco Addiction Completed 08/17/2016 Patient Education: Obesity Completed 08/17/2016 Patient Education: Hypertension Completed 08/17/2016 App[facility]ment: [phone] ([facility]) Complex 07/29/2016 Visit Plan: Hypertension [...] use. 06/29/2016 Appointment: Soledad Romero WPtel: [phone] [phone] (15 min) Moderate 06/29/2016 Patient Education: Patient [...] concerns. 06/07/2016 Appointment: Kelsie Burt WPtel: [phone] [facility] (30 min) Complex 06/07/2016 Patient Education: Patient [...] greater blood glucose control. 04/27/2016 Appointment: Kelsie Burttel: [facility] (30 min) Complex 04/27/2016 Patient Education: Patient Medication Summary Completed 04/27/2016 Patient Education: Smoking and Tobacco Addiction Completed 04/27/2016 Patient Education: Obesity Completed 04/27/2016 Appointment: Kelsie Burt WPtel: [facility] (30 min) Complex 04/22/2016 Visit Plan: Pt states that she just had neck surgery yesterday in [place] - today she is complaining of a cough and worried about it getting worse because she just had the surgery - Pt advised to increase fluids, vitamin C. Discussed natural and expected course of this diagnosis and need to alert me if symptoms do not follow expected course, or if any worse. RX sent to patient's pharmacy. 03/18/2016 Appointment: Kelsie Burttel: [phone] [phone] (30 min) Complex 03/18/2016 Patient Education: Patient Medication Summary Completed 03/18/2016 Patient Education: Smoking and Tobacco Addiction Completed 03/18/2016 Patient Education: Obesity Completed 03/18/2016 Appointment: Sola Gustafson WPtel: [phone] (30 min) Complex 10/21/2015 Care Plan: BMI [...] allergy spray. 09/04/2015 Appointment: Kelsie Burt WPtel: [phone] [facility] (15 min) Moderate 09/04/2015 Patient Education: Patient [...] cessation. 07/08/2015 Appointment: Soledad Romero WPtel: [phone] [phone] (15 min) Moderate 07/08/2015 Patient Education: Patient [...] stenosis - agree with recommendations from Ortho states for surgery of cervical spine. 05/19/2015 Appointment: Soledad Romero WPtel: [phone] [phone] (15 min) Moderate 05/19/2015 Patient Education: Patient [...] glucose control. 03/31/2015 Appointment: Soledad Romero WPtel[facility] ([facility] min) Moderate 03/31/2015 Patient Education: Patient Medication Summary Completed 03/31/2015 Patient Education: Hypertension Completed 03/31/2015 Patient Education: .Cervicalgia Neck Pain Completed 03/31/2015 Appointment: Soledad Romero WPtel: [facility] [place] (15 min) Moderate 03/10/2015 Visit Plan: Cervical spine stenosis - recommended pt to have an evaluation with Neurosurgery for possible surgical intervention. Po for MRI of lumbar spine. 02/03/2015 Appointment: Soledad Romero WPtel: [facility]3 [phone] (15 min) Moderate 02/03/2015 Patient Education: Patient [...] and naproxen. 12/31/2014 Appointment: Soledad Romero WPtel: [phone] [phone] (15 min) Moderate 12/31/2014 Patient Education: Patient [...] not improve. 10/03/2014 Appointment: Soledad Romero WPtel: [phone] [phone] New Patient 10/03/2014 Patient Education: Patient Medication Summary Completed 10/03/2014 Referral: [facility] Referral Appointment Requested Instructions Comment Stop lipitor [...] states for surgery of cervical spine. . Well Adult - pt was counseled [...] she just had neck surgery yesterday in [place] - today she is complaining of a [...] or with any changes, questions, or concerns. Stop the atorvastatin, start the co Q [...]
--- OUTSIDE RECORDS SUMMARY | 2018-04-03 07:35 | XMS REPORT | Continuity of Care Document ---
Author Author [facility] Organization [facility] Address Unknown Phone Unavailable Allergies Active Description Code Type Severity Reaction Onset Reported/Identified Relationship to Patient Clinical Status Yes No Known Drug Allergies [id number] Drug Allergy Mild N/A 07/23/2009 Yes adhesive [id number] Drug Allergy Unknown HIVES 03/29/2018 Medications There is no data. Problems Date Dx Coded Attending Type Code Diagnosis Diagnosed By 10/15/2011 Ot 540.9 ACUTE APPENDICITIS NOS 12/05/2012 FAREED URBINA MD Ot 723.4 BRACHIAL NEURITIS NOS 12/05/2012 FAREED URBINA MD Ot V57.1 PHYSICAL THERAPY NEC 10/15/2013 FAMILIA WINTER MD Ot 278.01 MORBID OBESITY 10/15/2013 FAMILIA WINTER MD Ot 721.3 LUMBOSACRAL SPONDYLOSIS 10/15/2013 FAMILIA WINTER MD Ot 722.4 CERVICAL DISC DEGEN 10/15/2013 FAMILIA WINTER MD Ot 722.52 LUMB/LUMBOSAC DISC DEGEN 10/15/2013 FAMILIA WINTER MD Ot V58.69 OTH MED,LT,CURRENT USE 10/15/2013 FAMILIA WINTER MD Ot V85.43 BODY MASS INDEX 50.0-59.9, ADULT 03/05/2014 Ot V76.12 03/05/2014 Ot 721.2 03/05/2014 SUSANNE DILL AUTOMATIC OVEN OPERATOR Ot V76.12 04/02/2014 SUSANNE DILL AUTOMATIC OVEN OPERATOR Ot 611.72 09/12/2014 HUE POWERS Ot 724.5 BACKACHE NOS 09/12/2014 HUE POWERS Ot 840.9 SPRAIN SHOULDER/ARM NOS 09/12/2014 HUE POWERS Ot 847.1 SPRAIN THORACIC REGION 09/12/2014 HUE POWERS Ot 847.2 SPRAIN LUMBAR REGION 09/12/2014 HUE POWERS Ot E884.2 FALL FROM CHAIR 09/18/2014 Ot V76.12 09/18/2014 Ot 721.2 09/18/2014 QUICKSUSANNE AUTOMATIC OVEN OPERATOR Ot V76.12 09/18/2014 QUICKSUSANNE AUTOMATIC OVEN OPERATOR Ot 611.72 09/19/2014 Ot V76.12 09/19/2014 Ot 721.2 09/19/2014 QUICKSUSANNE AUTOMATIC OVEN OPERATOR Ot V76.12 09/19/2014 QUICKSUSANNE AUTOMATIC OVEN OPERATOR Ot 611.72 11/08/2014 Ot V76.12 11/08/2014 Ot 721.2 11/08/2014 QUICKSUSANNE AUTOMATIC OVEN OPERATOR Ot V76.12 11/08/2014 QUICKSUSANNE AUTOMATIC OVEN OPERATOR Ot 611.72 12/19/2014 FAMILIA WINTER MD Ot 722.4 12/19/2014 FAMILIA WINTER MD Ot 278.01 12/19/2014 FAMILIA WINTER MD Ot 721.3 12/19/2014 FAMILIA WINTER MD Ot 722.52 12/19/2014 FAMILIA WINTER MD Ot V58.69 12/19/2014 FAMILIA WINTER MD Ot V85.43 02/28/2015 Ot V76.12 02/28/2015 Ot 721.2 02/28/2015 QUICKSUSANNE AUTOMATIC OVEN OPERATOR Ot V76.12 02/28/2015 QUICKSUSANNE AUTOMATIC OVEN OPERATOR Ot 611.72 02/28/2015 FAMILIA WINTER MD Ot 722.4 02/28/2015 FAMILIA WINTER MD Ot 278.01 02/28/2015 FAMILIA WINTER MD Ot 721.3 02/28/2015 FAMILIA WINTER MD Ot 722.52 02/28/2015 FAMILIA WINTER MD Ot V58.69 02/28/2015 FAMILIA WINTER MD Ot V85.43 04/04/2015 FAMILIA WINTER MD Ot M47.816 SPONDYLOSIS W/O MYELOPATHY OR RADICULOPA 04/04/2015 FAMILIA WINTER MD Ot M50.13 CERVICAL DISC DISORDER W RADICULOPATHY, 04/04/2015 FAMILIA WINTER MD, Ot M51.16 INTERVERTEBRAL DISC DISORDERS W RADICULO 04/04/2015 FAMILIA WINTER MD Ot Z79.899 OTHER HALFWAY (CURRENT) DRUG THERAPY 07/07/2015 Ot V76.12 07/07/2015 Ot 721.2 07/07/2015 SUSANNE DILL AUTOMATIC OVEN OPERATOR Ot V76.12 07/07/2015 SUSANNE DILL Ot 611.72 07/07/2015 FAMILIA WINTER MD Ot 722.4 07/07/2015 FAMILIA WINTER MD Ot 278.01 07/07/2015 FAMILIA WINTER MD Ot 721.3 07/07/2015 FAMILIA WINTER MD Ot 722.52 07/07/2015 FAMILIA WINTER MD Ot V58.69 07/07/2015 FAMILIA WINTER MD Ot V85.43 07/08/2015 ZENON FELDER, VESTA Ross Ot E11.9 07/08/2015 ZENON FELDER, VESTA H Ot E66.01 07/08/2015 ZENON FELDER, VESTA H Ot E78.2 07/08/2015 ZENON FELEDR, VESTA H Ot I10 07/08/2015 ZENON FELDER, VESTA H Ot I47.1 07/08/2015 ZENON FELDER, VESTA H Ot Z68.41 07/08/2015 ZENON FELDER, VESTA H Ot Z72.0 07/13/2015 ZENON FELDER, VESTA H Ot E11.9 07/13/2015 ZENON FELDER, VESTA H Ot E66.01 07/13/2015 ZENON FELDER, VESTA H Ot E78.2 07/13/2015 ZENON FELDER, VESTA H Ot I10 07/13/2015 ZENON FELDER, VESTA H Ot I47.1 07/13/2015 ZENON FELDER, VESTA H Ot Z68.41 07/13/2015 ZENON FELDER, VESTA H Ot Z72.0 07/22/2015 ZENON FELDER, VESTA H Ot E11.9 07/22/2015 ZENON FELDER, VESTA H Ot E66.01 07/22/2015 ZENON FELDER, VESTA H Ot E78.2 07/22/2015 ZENON FELDER, VESTA H Ot I10 07/22/2015 ZENON FELDER, VESTA H Ot I47.1 07/22/2015 ZENON FELDER, VESTA H Ot Z68.41 07/22/2015 VESTA YARBROUGH MD Ot Z72.0 08/15/2015 Ot V76.12 OTH SCREEN MAMMO-MALIGN NEOPLASM OF BRYAN 08/15/2015 Ot 721.2 THORACIC SPONDYLOSIS 08/15/2015 SUSANNE DILL Ot V76.12 OTH SCREEN MAMMO-MALIGN NEOPLASM OF BRYAN 08/15/2015 SUSANNE DILL Ot 611.72 LUMP OR MASS IN BREAST 08/15/2015 FAMILIA WINTER MD Ot 722.4 CERVICAL DISC DEGEN 08/15/2015 FAMILIA WINTER MD Ot 278.01 MORBID OBESITY 08/15/2015 FAMILIA WINTER MD Ot 721.3 LUMBOSACRAL SPONDYLOSIS 08/15/2015 FAMILIA WINTER MD Ot 722.52 LUMB/LUMBOSAC DISC DEGEN 08/15/2015 FAMILIA WINTER MD Ot V58.69 OTH MED,LT,CURRENT USE 08/15/2015 FAMILIA WINTER MD Ot V85.43 BODY MASS INDEX 50.0-59.9, ADULT 08/15/2015 VESTA YARBROUGH MD Ot E11.9 TYPE 2 DIABETES MELLITUS WITHOUT COMPLIC 08/15/2015 VESTA YARBROUGH MD Ot E66.01 MORBID (SEVERE) OBESITY DUE TO EXCESS CA 08/15/2015 VESTA YARBROUGH MD Ot E78.2 MIXED HYPERLIPIDEMIA 08/15/2015 VESTA YARBROUGH MD Ot I10 ESSENTIAL (PRIMARY) HYPERTENSION 08/15/2015 VESTA YARBROUGH MD Ot I47.1 SUPRAVENTRICULAR TACHYCARDIA 08/15/2015 VESTA YARBROUGH MD Ot Z68.41 BODY MASS INDEX (BMI) 40.0-44.9, ADULT 08/15/2015 VESTA YARBROUGH MD Ot Z72.0 TOBACCO USE 10/06/2015 Ot V76.12 OTH SCREEN MAMMO-MALIGN NEOPLASM OF BRYAN 10/06/2015 Ot 721.2 THORACIC SPONDYLOSIS 10/06/2015 SUSANNE DILL Ot V76.12 OTH SCREEN MAMMO-MALIGN NEOPLASM OF BRYAN 10/06/2015 SUSANNE DILL Ot 611.72 LUMP OR MASS IN BREAST 10/06/2015 FAMILIA WINTER MD Ot 722.4 CERVICAL DISC DEGEN 10/06/2015 FAMILIA WINTER MD Ot 278.01 MORBID OBESITY 10/06/2015 FAMILIA WINTER MD Ot 721.3 LUMBOSACRAL SPONDYLOSIS 10/06/2015 FAMILIA WINTER MD Ot 722.52 LUMB/LUMBOSAC DISC DEGEN 10/06/2015 FAMILIA WINTER MD Ot V58.69 OTH MED,LT,CURRENT USE 10/06/2015 FAMILIA WINTER MD Ot V85.43 BODY MASS INDEX 50.0-59.9, ADULT 10/06/2015 VESTA YARBROUGH MD Ot E11.9 TYPE 2 DIABETES MELLITUS WITHOUT COMPLIC 10/06/2015 VESTA YARBROUGH MD Ot E66.01 MORBID (SEVERE) OBESITY DUE TO EXCESS CA 10/06/2015 VESTA YARBROUGH MD Ot E78.2 MIXED HYPERLIPIDEMIA 10/06/2015 VESTA YARBROUGH MD Ot I10 ESSENTIAL (PRIMARY) HYPERTENSION 10/06/2015 VESTA YARBROUGH MD Ot I47.1 SUPRAVENTRICULAR TACHYCARDIA 10/06/2015 VESTA YARBROUGH MD Ot Z68.41 BODY MASS INDEX (BMI) 40.0-44.9, ADULT 10/06/2015 VESTA YARBROUGH MD Ot Z72.0 TOBACCO USE 10/06/2015 LAUREL WOODS DO Ot M54.2 CERVICALGIA 10/08/2015 LAUREL WOODS DO Ot M54.2 CERVICALGIA 10/10/2015 LAUREL WOODS DO Ot M54.2 CERVICALGIA 05/19/2016 ELIZABETH LOU APRN Ot E86.0 DEHYDRATION 05/19/2016 ELIZABETH LOU DESIGN ENGINEERING MANAGER Ot R06.2 WHEEZING 05/19/2016 ELIZABETH LOU DESIGN ENGINEERING MANAGER Ot R50.9 FEVER, UNSPECIFIED 05/23/2016 ELIZABETH LOU DESIGN ENGINEERING MANAGER Ot E86.0 DEHYDRATION 05/23/2016 ELIZABETH LOU DESIGN ENGINEERING MANAGER Ot R06.2 WHEEZING 05/23/2016 ELIZABETH LOU APRN Ot R50.9 FEVER, UNSPECIFIED 06/02/2016 ELIZABETH LOU APRN Ot E86.0 DEHYDRATION 06/02/2016 ELIZABETH LOU APRN Ot R06.2 WHEEZING 06/02/2016 ELIZABETH LOU APRN Ot R50.9 FEVER, UNSPECIFIED 11/12/2016 Ot V76.12 OTH SCREEN MAMMO-MALIGN NEOPLASM OF BRYAN 11/12/2016 Ot 721.2 THORACIC SPONDYLOSIS 11/12/2016 SUSANNE DILL Ot V76.12 OTH SCREEN MAMMO-MALIGN NEOPLASM OF BRYAN 11/12/2016 SUSANNE DILL Ot 611.72 LUMP OR MASS IN BREAST 11/12/2016 FAMILIA WINTER MD Ot 722.4 CERVICAL DISC DEGEN 11/12/2016 FAMILIA WINTER MD Ot 278.01 MORBID OBESITY 11/12/2016 FAMILIA WINTER MD Ot 721.3 LUMBOSACRAL SPONDYLOSIS 11/12/2016 FAMILIA WINTER MD Ot 722.52 LUMB/LUMBOSAC DISC DEGEN 11/12/2016 FAMILIA WINTER MD Ot V58.69 OTH MED,LT,CURRENT USE 11/12/2016 FAMILIA WINTER MD Ot V85.43 BODY MASS INDEX 50.0-59.9, ADULT 11/12/2016 VESTA YARBROUGH MD Ot E11.9 TYPE 2 DIABETES MELLITUS WITHOUT COMPLIC 11/12/2016 VESTA YARBROUGH MD Ot E66.01 MORBID (SEVERE) OBESITY DUE TO EXCESS CA 11/12/2016 VESTA YARBROUGH MD Ot E78.2 MIXED HYPERLIPIDEMIA 11/12/2016 VESTA YARBROUGH MD Ot I10 ESSENTIAL (PRIMARY) HYPERTENSION 11/12/2016 VESTA YARBROUGH MD Ot I47.1 SUPRAVENTRICULAR TACHYCARDIA 11/12/2016 VESTA YARBROUGH MD Ot Z68.41 BODY MASS INDEX (BMI) 40.0-44.9, ADULT 11/12/2016 VESTA YARBROUGH MD Ot Z72.0 TOBACCO USE 11/12/2016 ELIZABETH OLU APRN Ot E86.0 DEHYDRATION 11/12/2016 ELIZABETH LOU APRN Ot R06.2 WHEEZING 11/12/2016 ELIZABETH LOU DESIGN ENGINEERING MANAGER Ot R50.9 FEVER, UNSPECIFIED 01/18/2017 Ot V76.12 OTH SCREEN MAMMO-MALIGN NEOPLASM OF BRYAN 01/18/2017 Ot 721.2 THORACIC SPONDYLOSIS 01/18/2017 SUSANNE DILL Ot V76.12 OTH SCREEN MAMMO-MALIGN NEOPLASM OF BRYAN 01/18/2017 SUSANNE DILL Ot 611.72 LUMP OR MASS IN BREAST 01/18/2017 FAMILIA WINTER MD Ot 722.4 CERVICAL DISC DEGEN 01/18/2017 FAMILIA WINTER MD Ot 278.01 MORBID OBESITY 01/18/2017 FAMILIA WINTER MD Ot 721.3 LUMBOSACRAL SPONDYLOSIS 01/18/2017 FAMILIA WINTER MD Ot 722.52 LUMB/LUMBOSAC DISC DEGEN 01/18/2017 FAMILIA WINTRE MD Ot V58.69 OTH MED,LT,CURRENT USE 01/18/2017 FAMILIA WINTER MD Ot V85.43 BODY MASS INDEX 50.0-59.9, ADULT 01/18/2017 VESTA YARBROUGH MD Ot E11.9 TYPE 2 DIABETES MELLITUS WITHOUT COMPLIC 01/18/2017 VESTA YARBROUGH MD Ot E66.01 MORBID (SEVERE) OBESITY DUE TO EXCESS CA 01/18/2017 VESTA YARBROUGH MD Ot E78.2 MIXED HYPERLIPIDEMIA 01/18/2017 VESTA YARBROUGH MD Ot I10 ESSENTIAL (PRIMARY) HYPERTENSION 01/18/2017 VESTA YARBROUGH MD Ot I47.1 SUPRAVENTRICULAR TACHYCARDIA 01/18/2017 VESTA YARBROUGH MD Ot Z68.41 BODY MASS INDEX (BMI) 40.0-44.9, ADULT 01/18/2017 VESTA YARBROUGH MD Ot Z72.0 TOBACCO USE 01/18/2017 ELIZABETH LOU APRN Ot E86.0 DEHYDRATION 01/18/2017 ELIZABETH LOU DESIGN ENGINEERING MANAGER Ot R06.2 WHEEZING 01/18/2017 ELIZABETH LOU DESIGN ENGINEERING MANAGER Ot R50.9 FEVER, UNSPECIFIED 02/24/2017 JHONNY GEE DO Ot Z12.31 ENCNTR SCREEN MAMMOGRAM FOR MALIGNANT NE 06/25/2017 Ot V76.12 OTH SCREEN MAMMO-MALIGN NEOPLASM OF BRYAN 06/25/2017 Ot 721.2 THORACIC SPONDYLOSIS 06/25/2017 SUSANNE DILL Ot V76.12 OTH SCREEN MAMMO-MALIGN NEOPLASM OF BRYAN 06/25/2017 SUSANNE DILL Ot 611.72 LUMP OR MASS IN BREAST 06/25/2017 FAMILIA WINTER MD Ot 722.4 CERVICAL DISC DEGEN 06/25/2017 FAMILIA WINTER MD Ot 278.01 MORBID OBESITY 06/25/2017 FAMILIA WINTER MD Ot 721.3 LUMBOSACRAL SPONDYLOSIS 06/25/2017 FAMILIA WINTER MD Ot 722.52 LUMB/LUMBOSAC DISC DEGEN 06/25/2017 FAMILIA WINTER MD Ot V58.69 OTH MED,LT,CURRENT USE 06/25/2017 FAMILIA WINTER MD Ot V85.43 BODY MASS INDEX 50.0-59.9, ADULT 06/25/2017 VESTA YARBROUGH MD Ot E11.9 TYPE 2 DIABETES MELLITUS WITHOUT COMPLIC 06/25/2017 VESTA YARBROUGH MD Ot E66.01 MORBID (SEVERE) OBESITY DUE TO EXCESS CA 06/25/2017 VESTA YARBROUGH MD Ot E78.2 MIXED HYPERLIPIDEMIA 06/25/2017 VESTA YARBROUGH MD Ot I10 ESSENTIAL (PRIMARY) HYPERTENSION 06/25/2017 VESTA YARBROUGH MD Ot I47.1 SUPRAVENTRICULAR TACHYCARDIA 06/25/2017 VESTA YARBROUGH MD Ot Z68.41 BODY MASS INDEX (BMI) 40.0-44.9, ADULT 06/25/2017 VESTA YARBROUGH MD Ot Z72.0 TOBACCO USE 06/25/2017 ELIZABETH LOU DESIGN ENGINEERING MANAGER Ot E86.0 DEHYDRATION 06/25/2017 ELIZABETH LOU DESIGN ENGINEERING MANAGER Ot R06.2 WHEEZING 06/25/2017 ELIZABETH LOU DESIGN ENGINEERING MANAGER Ot R50.9 FEVER, UNSPECIFIED 06/25/2017 JHONNY GEE DO Ot Z12.31 ENCNTR SCREEN MAMMOGRAM FOR MALIGNANT NE 07/15/2017 Ot V76.12 OTH SCREEN MAMMO-MALIGN NEOPLASM OF BRYAN 07/15/2017 Ot 721.2 THORACIC SPONDYLOSIS 07/15/2017 SUSANNE DILL Ot V76.12 OTH SCREEN MAMMO-MALIGN NEOPLASM OF BRYAN 07/15/2017 SUSANNE DILL Ot 611.72 LUMP OR MASS IN BREAST 07/15/2017 FAMILIA WINTER MD Ot 722.4 CERVICAL DISC DEGEN 07/15/2017 FAMILIA WINTER MD Ot 278.01 MORBID OBESITY 07/15/2017 FAMILIA WINTER MD Ot 721.3 LUMBOSACRAL SPONDYLOSIS 07/15/2017 FAMILIA WINTER MD Ot 722.52 LUMB/LUMBOSAC DISC DEGEN 07/15/2017 FAMILIA WINTER MD Ot V58.69 OTH MED,LT,CURRENT USE 07/15/2017 FAMILIA WINTER MD Ot V85.43 BODY MASS INDEX 50.0-59.9, ADULT 07/15/2017 VESTA YARBROUGH MD Ot E11.9 TYPE 2 DIABETES MELLITUS WITHOUT COMPLIC 07/15/2017 VESTA YARBROUGH MD Ot E66.01 MORBID (SEVERE) OBESITY DUE TO EXCESS CA 07/15/2017 VESTA YARBROUGH MD Ot E78.2 MIXED HYPERLIPIDEMIA 07/15/2017 VESTA YARBROUGH MD Ot I10 ESSENTIAL (PRIMARY) HYPERTENSION 07/15/2017 VESTA YARBROUGH MD Ot I47.1 SUPRAVENTRICULAR TACHYCARDIA 07/15/2017 VESTA YARBROUGH MD Ot Z68.41 BODY MASS INDEX (BMI) 40.0-44.9, ADULT 07/15/2017 VESTA YARBROUGH MD Ot Z72.0 TOBACCO USE 07/15/2017 ELIZABETH LOU DESIGN ENGINEERING MANAGER Ot E86.0 DEHYDRATION 07/15/2017 ELIZABETH LOU DESIGN ENGINEERING MANAGER Ot R06.2 WHEEZING 07/15/2017 ELIZABETH LOU DESIGN ENGINEERING MANAGER Ot R50.9 FEVER, UNSPECIFIED 07/15/2017 JHONNY GEE DO Ot Z12.31 ENCNTR SCREEN MAMMOGRAM FOR MALIGNANT NE 03/29/2018 FRANCISCA FELDER, Margarito VILLARREAL Ot Z01.818 ENCOUNTER FOR OTHER PREPROCEDURAL EXAMIN 03/30/2018 SUSANNE DILL Ot V76.12 OTH SCREEN MAMMO-MALIGN NEOPLASM OF BRYAN 03/30/2018 SUSANNE DILL AUTOMATIC OVEN OPERATOR Ot 611.72 LUMP OR MASS IN BREAST 03/30/2018 FAMILIA WINTER MD Ot 722.4 CERVICAL DISC DEGEN 03/30/2018 FAMILIA WINTER MD Ot 278.01 MORBID OBESITY 03/30/2018 FAMILIA WINTER MD Ot 721.3 LUMBOSACRAL SPONDYLOSIS 03/30/2018 FAMILIA WINTER MD Ot 722.52 LUMB/LUMBOSAC DISC DEGEN 03/30/2018 FAMILIA WINTER MD Ot V58.69 OTH MED,LT,CURRENT USE 03/30/2018 MOY FELDER, FAMILIA Wilkins Ot V85.43 BODY MASS INDEX 50.0-59.9, ADULT 03/30/2018 VESTA YARBROUGH MD Ot E11.9 TYPE 2 DIABETES MELLITUS WITHOUT COMPLIC 03/30/2018 VESTA YARBROUGH MD Ot E66.01 MORBID (SEVERE) OBESITY DUE TO EXCESS CA 03/30/2018 VESTA YARBROUGH MD Ot E78.2 MIXED HYPERLIPIDEMIA 03/30/2018 VESTA YARBROUGH MD Ot I10 ESSENTIAL (PRIMARY) HYPERTENSION 03/30/2018 VESTA YARBROUGH MD Ot I47.1 SUPRAVENTRICULAR TACHYCARDIA 03/30/2018 VESTA YARBROUGH MD Ot Z68.41 BODY MASS INDEX (BMI) 40.0-44.9, ADULT 03/30/2018 VESTA YARBROUGH MD Ot Z72.0 TOBACCO USE 03/30/2018 ELIZABETH LOU DESIGN ENGINEERING MANAGER Ot E86.0 DEHYDRATION 03/30/2018 ELIZABETH LOU DESIGN ENGINEERING MANAGER Ot R06.2 WHEEZING 03/30/2018 ELIZABETH LOU DESIGN ENGINEERING MANAGER Ot R50.9 FEVER, UNSPECIFIED 03/30/2018 JHONNY GEE DO Ot Z12.31 ENCNTR SCREEN MAMMOGRAM FOR MALIGNANT NE Procedures There is no data. Results Test Result Range Automated blood complete blood count (hemogram) panel - 05/17/16 11:03 Blood leukocytes automated count (number/volume) 6.2 10*3/uL 4.3-11.0 Blood erythrocytes automated count (number/volume) 4.71 10*6/uL 4.35-5.85 Venous blood hemoglobin measurement (mass/volume) 13.4 g/dL 11.5-16.0 Blood hematocrit (volume fraction) 41 % 35-52 Automated erythrocyte mean corpuscular volume 86 [foz_us] 80-99 Automated erythrocyte mean corpuscular hemoglobin (mass per erythrocyte) 29 pg 25-34 Automated erythrocyte mean corpuscular hemoglobin concentration measurement ( mass/volume) 33 g/dL 32-36 Automated erythrocyte distribution width ratio 16.1 % 10.0-14.5 Automated blood platelet count (count/volume) 240 10*3/uL 130-400 Automated blood platelet mean volume measurement 9.5 [foz_us] 7.4-10.4 Comprehensive metabolic panel - 05/17/16 11:03 Serum or plasma sodium measurement (moles/volume) 137 mmol/L 135-145 Serum or plasma potassium measurement (moles/volume) 4.0 mmol/L 3.6-5.0 Serum or plasma chloride measurement (moles/volume) 102 mmol/L 98-107 Carbon dioxide 25 mmol/L 21-32 Serum or plasma anion gap determination (moles/volume) 10 mmol/L 5-14 Serum or plasma urea nitrogen measurement (mass/volume) 11 mg/dL 7-18 Serum or plasma creatinine measurement (mass/volume) 0.71 mg/dL 0.60-1.30 Serum or plasma urea nitrogen/creatinine mass ratio 15 NRG Serum or plasma creatinine measurement with calculation of estimated glomerular filtration rate > NRG Serum or plasma glucose measurement (mass/volume) 133 mg/dL 70-105 Serum or plasma calcium measurement (mass/volume) 8.4 mg/dL 8.5-10.1 Serum or plasma total bilirubin measurement (mass/volume) 0.2 mg/dL 0.1-1.0 Serum or plasma alkaline phosphatase measurement (enzymatic activity/volume) 132 U/L 40-136 Serum or plasma aspartate aminotransferase measurement (enzymatic activity/ volume) 28 U/L 5-34 Serum or plasma alanine aminotransferase measurement (enzymatic activity/volume ) 29 U/L 0-55 Serum or plasma protein measurement (mass/volume) 6.8 g/dL 6.4-8.2 Serum or plasma albumin measurement (mass/volume) 3.8 g/dL 3.2-4.5 Complete urinalysis with reflex to culture - 05/17/16 11:15 Urine color determination YELLOW NRG Urine clarity determination SLIGHTLY CLOUDY NRG Urine pH measurement by test strip 6 5-9 Specific gravity of urine by test strip 1.020 1.016- 1.022 Urine protein assay by test strip, semi-quantitative NEGATIVE NEGATIVE Urine glucose detection by automated test strip NEGATIVE NEGATIVE Erythrocytes detection in urine sediment by light microscopy NEGATIVE NEGATIVE Urine ketones detection by automated test strip NEGATIVE NEGATIVE Urine nitrite detection by test strip NEGATIVE NEGATIVE Urine total bilirubin detection by test strip NEGATIVE NEGATIVE Urine urobilinogen measurement by automated test strip (mass/volume) NORMAL NORMAL Urine leukocyte esterase detection by dipstick NEGATIVE NEGATIVE Automated urine sediment erythrocyte count by microscopy (number/high power field) NONE NRG Automated urine sediment leukocyte count by microscopy (number/high power field ) NONE NRG Bacteria detection in urine sediment by light microscopy NEGATIVE NRG Squamous epithelial cells detection in urine sediment by light microscopy TNTC NRG Crystals detection in urine sediment by light microscopy NONE NRG Casts detection in urine sediment by light microscopy NONE NRG Mucus detection in urine sediment by light microscopy NEGATIVE NRG Complete urinalysis with reflex to culture NO NRG Encounters ACCT No. Visit Date/Time Discharge Status Pt. Type Provider Facility Loc./Unit Complaint [id number] 03/29/2018 05:38:00 03/29/2018 13:18:00 DIS Outpatient Margarito ESPINOSA MD [facility] PREOP PSVT [id number] 01/18/2017 10:19:00 01/18/2017 23:59:59 CLS Outpatient JHONNY GEE DO [facility] RAD Z12.31 [id number] 11/24/2016 13:17:00 11/24/2016 23:59:59 CLS Preadmit ELIZABETH LOU APRN [facility] RAD SCREENING [id number] 05/17/2016 10:32:00 05/17/2016 23:59:59 C[facility],FEVER, WHEEZING [id number] 10/10/2015 13:35:00 10/10/2015 14:35:00 DIS Outpatient LAUREL WOODS DO [facility] REHAB NECK PAIN [id number] 08/18/2015 16:26:00 08/18/2015 23:59:59 CLS Preadmit ELIZABETH LOU APRN [facility] REHAB [id number] 07/07/2015 07:24:00 07/07/2015 23:59:59 CLS Outpatient VESTA YARBROUGH MD [facility] CARD SEE ORDER [id number] 04/04/2015 10:09:00 04/04/2015 13:10:00 DIS Outpatient FAMILIA WINTER MD [facility] CARD DISC DISORDER W/ RADICULOPATHY [id number] 12/06/2014 09:10:00 12/06/2014 23:59:59 CLS Outpatient FAMILIA WINTER MD [facility] CARD DDD [id number] 11/08/2014 08:11:00 11/08/2014 23:59:59 CLS Outpatient FAMILIA WINTER MD [facility] CARD DDD CERVICAL [id number] 09/12/2014 18:22:00 09/12/2014 20:33:00 DIS Emergency HUE POWERS [facility] ER BACK PAIN [id number] 03/05/2014 08:07:00 03/05/2014 23:59:59 CLS Outpatient SUSANNE DILL [facility] RAD ABNORMAL MAMMO FOLLOW UP [id number] 02/28/2014 08:10:00 02/28/2014 23:59:59 CLS Outpatient SUSANNE DILL [facility] RAD SCREENING [id number] 10/15/2013 13:13:00 10/15/2013 15:08:00 DIS Outpatient FAMILIA WINTER MD [facility] CARD DEGENERATIVE DISC DISEASE [id number] 11/22/2012 08:47:00 12/05/2012 08:37:00 DIS Outpatient CARLITOS FELDER, FAREED Andre [facility] REHAB RT RADICULOPATHY C5-C6 [id number] 04/03/2018 08:00:00 PEN Margarito Rodarte MD [facility] CATH PSVT [id number] 07/25/2012 09:30:00 Document Registration [id number] 07/25/2012 09:22:00 Document Registration [id number] 10/15/2011 13:36:00 Document Registration [id number] 03/03/2017 11:44:52 03/03/2017 23:59:59 CLS Outpatient
[2018-04-03 07:36] LABS: PROTHROMBIN TIME PATIENT 13.1 SEC (12.2-14.7)
[2018-04-03 07:42] LABS: BUN/CREATININE RATIO 19; CALCIUM 9.2 MG/DL (8.5-10.1); CARBON DIOXIDE 25 MMOL/L (21-32); CHLORIDE 102 MMOL/L (98-107); CREATININE SERUM 0.74 MG/DL (0.60-1.30); GFR ESTIMATED > 60; GLUCOSE 149 MG/DL (70-105); POTASSIUM 3.9 MMOL/L (3.6-5.0); SODIUM 140 MMOL/L (135-145)
[2018-04-03 07:43] LABS: ALANINE AMINOTRANSFERASE 28 U/L (0-55); ALBUMIN 3.8 GM/DL (3.2-4.5); ALKALINE PHOSPHATASE 124 U/L (40-136); BILIRUBIN,TOTAL 0.4 MG/DL (0.1-1.0); TOTAL PROTEIN 7.2 GM/DL (6.4-8.2)
[2018-04-03] MEDS ORDERED: FLU QUADRIvalent (5+ YOA) 2018-2019 (AFLURIA) 0.5 ML IM ONE (07:45)
[2018-04-03] MEDS ORDERED: NS IV 1000 ML 1,000 ML ONE (08:30)
[2018-04-03] MEDS ORDERED: HEParin (CATH LAB) 1,000 ML IV ONE (08:30)
[2018-04-03] MEDS ORDERED: LIDOCAINE 1% INJ 20 ML 20 ML VIAL ONE (08:30)
[2018-04-03] MEDS ORDERED: SEVOFLURANE (ULTANE) 15 ML INHAL SOLN ONE (10:49)
--- NOTE | 2018-04-03 12:12 | Cardiac Procedure Note-CS/ASA ---
Pre-Procedure Note Pre-Op Procedure Note H&P Reviewed The H&P was reviewed, patient examined and no changes noted. Date H&P Reviewed: Apr 03, 2018 Time H&P Reviewed: 07:55 Conscious Sedation Pre-Proced Time 07:55 ASA Score 3 For ASA 3 and 4: Consider anesthesia and medical clearance. Also, for patients with a history of failed moderate sedation consider anesthesia. Airway Lungs Heart ASA score ASA 1: a normal healthy patient ASA 2: a patient with a mild systemic disease (mid diabetes, controlled hypertension, obesity ASA 3: a patient with a severe systemic disease that limits activity (angina , COPD, prior Myocardial infarction) ASA 4: a patient with an incapacitating disease that is a constant threat to life (CHF, renal failure) ASA 5: a moribund patient not expected to survive 24 hrs. (ruptured aneurysm) ASA 6: a declared brain patient whose organs are being harvested. For emergent operations, add the letter E after the classification Mallampati Classification Grade 1 Sedation Plan Analgesia, Amnesia, Plan communicated to team members, Discussed options with patient/fam, Discussed risks with patient/fam The patient is an appropriate candidate to undergo the planned procedure, sedation, and anesthesia. The patient immediately re-assessed prior to indication. Margarito ESPIONSA MD Apr 03, 2018 12:12
--- NOTE | 2018-04-03 12:14 | Electrophysiology Procedure ---
EP Procedure DATE OF SERVICE:04/03/18 CARDIAC MOTION PICTURE COMMENTATOR: Miriam Young MD, [facility], [facility]. INDICATION: PSVT PREOPERATIVE DIAGNOSIS: PSVT POSTOPERATIVE DIAGNOSES: Typical AVNRT, successful ablation. HISTORY: This is a 57-year-old lady with previous history of PSVT ablation. She presents with recurrent symptomatic palpitations. Ambulatory monitoring demonstrated narrow complex tachycardia. The patient is planned for comprehensive EP study and ablation. PROCEDURE PERFORMED: 1. Comprehensive EP study with induction. 2. Fluoroscopy. 3. CS pacing. 4. Drug infusion. 5. Ablation of AVNRT 6. Comprehensive 3D mapping with the carto system. COMPLICATION: None. ESTIMATED BLOOD LOSS: 10 mL. CONTRAST USED: None. FLUOROSCOPY TIME: 13.9 minutes. FLUOROSCOPY DOSE: 572 MGY. SPECIMENS: None. ANESTHESIA: Done by our anesthesia colleagues. ANTICOAGULATION: None. PROCEDURE IN DETAIL: After informed consent was taken, the patient was brought to the EP lab. Anesthesia was provided by our anesthesia colleagues. The patient was draped and prepped in the usual sterile fashion. The patient presented to the EP lab in sinus rhythm. Access was gained in the right femoral vein with a 6-Danish and an 8-Danish sheath. Left access in left femoral vein was gained with 5-Danish and 6-Danish sheath respectively. High right atrial catheter was an ablation catheter, right ventricular catheter was placed, his catheter and the CS catheter were also placed. A comprehensive EP study was done including a CS pacing. Paroxysmal SVT was very easily induced with tachycardia cycle length of 354 ms. Dual AV yajaira physiology was demonstrated with jump. Very short septal VA time of 9 ms. Numerous attempts were made to entrain the tachycardia however termination always occurred with the V. ventricular pacing showed concentric atrial activation ruling out a left lateral pathway. A 3D electroanatomic mapping was donewith the carto system and extensive mapping was done in the area of the slow pathway. Ablation was performed in the proximal CS, just outside the CS. Few junctional ectopic beats were noted. Post procedure patient did not have dual AV yajaira physiology and tachycardia could not be induced even on Isuprel infusion. No echoes were noted. On Isuprel we did induce nonsustained atrial tachycardia with 2-1 AV block. However this was not sustained and mapping could not be done. The patienttolerated the procedure well and did not have any complication. The patientleft the lab in sinus rhythm. Total ablation time was 458 seconds. MEASUREMENTS/EP STUDY: AH Interval 132 ms, HV Interval 40 ms, AH interval 817 ms, IA interval 159 ms, QRS duration 40 ms, QT interval 192 ms, Atrial ERP 600/310 ms, Ventricular ERP 600/250 ms, Fast pathway ERP 500/230 ms PLAN: The patient will be observed overnight and will be discharged home tomorrow with precise followup instructions. Miriam Young MD, RS, CCDS Cardiac Electrophysiology Margarito YOUNG MD Apr 03, 2018 12:14
[2018-04-03] MEDS ORDERED: PATIENT MAY USE OWN MEDS, ALL PO SCH (12:15)
--- NOTE | 2018-04-03 14:34 | Anesthesia-General Post-Op ---
General Patient Condition Mental Status/LOC: Same as Preop Cardiovascular: Satisfactory Nausea/Vomiting: Absent Respiratory: Satisfactory Pain: Controlled Complications: Absent Post Op Complications Complications None Follow Up Care/Instructions Patient Instructions None needed. Anesthesia/Patient Condition Patient Condition Patient is doing well, no complaints, stable vital signs, no apparent adverse anesthesia problems. No complications reported per nursing. HARIS WHITEHEAD CRNA Apr 03, 2018 14:34
[2018-04-03] MEDS: NS IV 1000 ML 1,000 ML IV SCH ×2 (17:44→22:21)
[2018-04-03] MEDS: CEPHALEXIN 250 MG (KEFLEX) CAP PO SCH (20:02)
[2018-04-03] MEDS: MELATONIN 3 MG TABLET PO SCH ×2 (20:02→21:00)
[2018-04-03] MEDS ORDERED: NON-FORMULARY MEDICATION 1 EA EA (Cephalexin (Keflex) 500 MG) PO SCH (21:00)
[2018-04-04] VITALS: BP 127/65
[2018-04-04] MEDS: ACETAMINOPHEN 325 MG TABLET PO PRN ×2 (00:27→06:40)
[2018-04-04 03:44] LABS: HEMOGLOBIN 12.7 G/DL (11.5-16.0); MEAN PLATELET VOLUME 10.4 FL (7.4-10.4); RED BLOOD COUNT 4.36 10^6/uL (4.35-5.85); RED CELL DISTRIBUTION WIDTH 15.3 % (10.0-14.5); WHITE BLOOD COUNT 11.9 10^3/uL (4.3-11.0)
[2018-04-04 04:00] VITALS: BP 123/81
[2018-04-04 04:07] LABS: BUN/CREATININE RATIO 14; CALCIUM 8.2 MG/DL (8.5-10.1); CARBON DIOXIDE 23 MMOL/L (21-32); CHLORIDE 102 MMOL/L (98-107); CREATININE SERUM 0.74 MG/DL (0.60-1.30); GFR ESTIMATED > 60; GLUCOSE 118 MG/DL (70-105); SODIUM 136 MMOL/L (135-145)
[2018-04-04 08:14] VITALS: BP 111/71
[2018-04-04] MEDS: CEPHALEXIN 250 MG (KEFLEX) CAP PO SCH (08:23)
[2018-04-04] MEDS: NS IV 1000 ML 1,000 ML IV SCH (08:24)
--- NOTE | 2018-04-04 09:19 | Cardiology Discharge Summary ---
Diagnosis/Chief Complaint Date of Admission 04/03/2018 Date of Discharge 04/04/2018 Admission Diagnosis PSVT Final/Discharge Diagnosis Successful PSVT ablation Chief Complaint/HPI Chief Complaint/HPI This is a 57-year-old lady with previous history of PSVT ablation. She presents with recurrent symptomatic palpitations. Ambulatory monitoring demonstrated narrow complex tachycardia. The patient is planned for comprehensive EP study and ablation. Discharge Summary Procedures Comprehensive EP study with 3-D mapping. Typical AVNRT, successful ablation. Discharge Physical Examination Normal cardiovascular and respiratory examination. Hospital Course Unremarkable. Pending Labs Discussion & Recommendations Discussion Discharge instructions were discussed at length with the patient. The entire procedure were explained at length to the patient and family. Discharge took over 30 minutes to complete. Follow up appt.: Dr. Young in 3-4 weeks. Dicharge Diet: Regular Diet Activity as Tolerated: Yes Home Medications Reviewed patient Home Medication Reconciliation performed by pharmacy medication reconciliations mold repair technician and/or nursing. Patients Allergies have been reviewed. Discharge Home Medications: Reviewed and agree with Discharge Medication list on patient's Discharge Instruction sheet Condition at discharge Stable. Instructions to patient/family Discharge instructions given to the patient. Clinical Quality Measures DVT/VTE Risk/Contraindication: Risk Factor Score Per Nursin RFS Level Per Nursing on Admit: 2=Moderate Margarito YOUNG MD Apr 04, 2018 09:19
--- NOTE | 2018-04-04 10:33 | Anesthesia-General Post-Op ---
General Patient Condition Mental Status/LOC: Same as Preop Cardiovascular: Satisfactory Nausea/Vomiting: Absent Respiratory: Satisfactory Pain: Controlled Complications: Absent Post Op Complications Complications None Follow Up Care/Instructions Patient Instructions None needed. Anesthesia/Patient Condition Patient Condition Patient is doing well, no complaints, stable vital signs, no apparent adverse anesthesia problems. No complications reported per nursing. KOURTNEY ESTRADA CRNA Apr 04, 2018 10:33
--- NOTE | 2018-04-04 11:09 | Discharge Inst-Post CATH ---
Discharge Inst-CATH Post Cardiac Cath D/C Inst Follow Up/Plan Dr Young in 3-4 weeks. CARDIAC CATH DISCHARGE INSTRUCTIONS *Hold Metformin for 48 hours post heart cath. ACTIVITY * Go Home directly and rest. * Limit activity of the leg (or wrist if it was used) for 7 days including aerobics, swimming, jogging, bicycling, etc. * Restrict stair-climbing for 7 days if possible, if not, climb up with your non -cath leg, then bring together on the same step. * Avoid lifting, pushing, pulling or excessive movement of the affected extremity for 7 days. * Customary sexual activity may be resumed after 2 days-use caution not to use a position that strains or causes pain to the affected extremity. * No driving for 24 hours. * NO SMOKING. * Avoid straining for bowel movements for 7 days. * Gentle walking on level ground is allowed. * Returning to work will depend on the type of procedure and the results. Your doctor will discuss this with you. CALL YOUR DOCTOR FOR ANY OF THE FOLLOWING: *If bleeding from the puncture site occurs- Apply gentle pressure to site with clean cloth and call your doctor or EMS. * If a knot or lump forms under the skin, increases in size, or causes pain. * If bruising appears to be worsening or moving further down your leg instead of disappearing. * Temperature above 101 F. CARE OF YOUR GROIN INCISION; * Bruising or purple discoloration of the skin near the puncture site is common. * You may shower only, no bathtub bathing for 5 days. Be careful to avoid slipping as your leg may feel stiff. * If a closure device was used on your femoral artery, please see the attached guide regarding care of the device and your leg. * Leave the dressing on, until removed by office staff. CARE OF YOUR WRIST INCISION; * Bruising or purple discoloration of the skin near the puncture site is common. * You may shower. * DO NOT submerge wrist. * Leave dressing on, until removed by office staff.. Margarito YOUNG MD Apr 04, 2018 11:09
== END 2018-04-04 10:04 | disposition home or self-care (01) ==
LOC: CATH 06:51 → ICU 13:40 → CATH 04-04 10:04
PROVIDERS: ATTEND Internal Medicine Interventional Cardiology
DX: I47.1 Supraventricular tachycardia (principal); I10 Essential (primary) hypertension; E11.42 Type 2 diabetes mellitus with diabetic polyneuropathy; F17.210 Nicotine dependence, cigarettes, uncomplicated; E66.01 Morbid (severe) obesity due to excess calories; Z68.43 Body mass index [BMI] 50.0-59.9, adult; Z79.84 Long term (current) use of oral hypoglycemic drugs; Z79.899 Other long term (current) drug therapy
CPT/HCPCS: 36415; 80048; 80053; 85027; 85610; 85730; 87081; 93005; 93613; 93621; 93623; 93653

== ENCOUNTER → 2019-05-14 | Outpatient (CLI) | payer BC ==
[~2019-05-14] MED LIST changes: +CEPH-507 PO; +LEVO500T80 PO; +LORA10TA72 PO; +LOSA100T57 PO; -LOSA100T8 PO; +METF500T19 PO; -METF500T8 PO; +NAPR-1071 PO
--- NOTE | 2019-05-14 16:12 | Diagnostic Imaging Report ---
INDICATION: Cough. PA and lateral chest obtained at 03:34 p.m. and is compared to 04/07/2010. Heart is normal in size. There is mild central vascular congestion without kristen edema. There is no consolidation, pneumothorax, or pleural fluid. IMPRESSION: Mild central vascular congestion without focal edema or infiltrate. No pneumothorax or pleural fluid. Dictated by: Dictated on workstation # [id number]
== END ==
LOC: RAD 15:12
PROVIDERS: ATTEND Nurse Practitioner Family
DX: R05 Cough (principal); R09.89 Other specified symptoms and signs involving the circulatory and respiratory systems
CPT/HCPCS: 71046

== ENCOUNTER → 2019-06-20 | Outpatient (CLI) | payer BC ==
[2019-06-20 07:17] LABS: HEMOGLOBIN 14.6 G/DL (11.5-16.0); MEAN PLATELET VOLUME 9.3 FL (7.4-10.4); RED CELL DISTRIBUTION WIDTH 17.5 % (10.0-14.5); WHITE BLOOD COUNT 9.3 10^3/uL (4.3-11.0)
[2019-06-20 07:36] LABS: ALANINE AMINOTRANSFERASE 17 U/L (0-55); ALKALINE PHOSPHATASE 87 U/L (40-136); BILIRUBIN,TOTAL 0.3 MG/DL (0.1-1.0); BUN/CREATININE RATIO 25; CALCIUM 9.5 MG/DL (8.5-10.1); CARBON DIOXIDE 27 MMOL/L (21-32); CHLORIDE 103 MMOL/L (98-107); CHOLESTEROL 168 MG/DL (< 200); CREATININE SERUM 0.73 MG/DL (0.60-1.30); GFR ESTIMATED > 60; GLUCOSE 140 MG/DL (70-105); HDL CHOLESTEROL 36 MG/DL (40-60); MAGNESIUM 1.5 MG/DL (1.6-2.4); POTASSIUM 4.5 MMOL/L (3.6-5.0); SODIUM 140 MMOL/L (135-145); TOTAL PROTEIN 7.3 GM/DL (6.4-8.2); TRIGLYCERIDES 300 MG/DL (<150); VLDL CHOLESTEROL 60 MG/DL (5-40)
== END ==
LOC: LAB 06:58
PROVIDERS: ATTEND Family Medicine
DX: I89.0 Lymphedema, not elsewhere classified (principal); E11.9 Type 2 diabetes mellitus without complications; I10 Essential (primary) hypertension
CPT/HCPCS: 36415; 80053; 80061; 83036; 83735; 84443; 85027

== ENCOUNTER → 2019-06-21 | Outpatient (CLI) | payer BC ==
[~2019-06-21] MED LIST changes: +HOLD METFORMIN - RECEIVED CONTRAST 20 ML VIAL IV SCH; +IOHEXOL 350 MG/ML 100 ML (OMNIPAQUE 350) VIAL IV ONE; +NS 100 ML (IVPB) BAG IV ONE
--- NOTE | 2019-06-21 08:54 | Diagnostic Imaging Report ---
EXAMINATION: CT Abdomen and Pelvis with intravenous contrast. TECHNIQUE: Multiple contiguous axial images were obtained through the abdomen and pelvis after the uneventful administration of intravenous contrast. All CT scans use one or more of the following dose optimizing techniques: automated exposure control, MA and/or KvP adjustment based on a patient size and exam type, or iterative reconstruction. HISTORY: Abdominal pain COMPARISON: 10/15/2011 FINDINGS: Limited views of the lower thorax are unremarkable. The liver is normal without focal lesion. There is no biliary ductal dilation. Small gallstone is present in the gallbladder. No cholecystitis. Pancreas is normal. Spleen is normal. There is a 22 mm right adrenal myelolipoma. The kidneys are normal. There is no hydronephrosis. Urinary bladder is normal. Visualized bowel is normal in caliber without obstruction or inflammation. There is diverticulosis without diverticulitis. No free fluid or air. No abdominal or pelvic lymphadenopathy. Aorta is normal in caliber without aneurysm. There are no suspicious osseus lesions. There is a chronic L3 compression fracture which is unchanged from 09/12/2014. IMPRESSION: 1. Cholelithiasis without cholecystitis, otherwise no acute abnormality. Dictated by: Dictated on workstation # [id number]
--- NOTE | 2019-06-21 09:09 | Diagnostic Imaging Report ---
INDICATION: Routine screening. Comparison is made prior mammogram from 01/18/2017 and 03/05/2014. 2-D and 3-D bilateral screening mammography was performed with a Computer Aided Detection (CAD) system. 3-D tomosynthesis was also performed and reviewed. FINDINGS: Scattered fibroglandular densities are identified bilaterally. There are benign calcifications in both breasts. No dominant mass or malignant appearing microcalcifications are seen. Axillae are unremarkable. IMPRESSION: No mammographic features suspicious for malignancy are identified. ACR BI-RADS Category 2: Benign findings. Result letter will be mailed to the patient. Note: At least 10% of breast cancer is not imaged by mammography. Dictated by: Dictated on workstation # [id number]
== END ==
LOC: RAD 07:40
PROVIDERS: ATTEND Family Medicine
DX: Z12.31 Encounter for screening mammogram for malignant neoplasm of breast (principal); K80.20 Calculus of gallbladder without cholecystitis without obstruction
CPT/HCPCS: 74177; 77067

== ENCOUNTER 2019-11-22 11:15 | Outpatient (CLI) | payer BC ==
[~2019-11-22] VITALS: Ht 165 cm; Wt 140.0 kg
[~2019-11-22 11:15] MED LIST changes: +CYAN250010 PO; +DULA0.75 SQ; +GABA600T PO; -HOLD METFORMIN - RECEIVED CONTRAST 20 ML VIAL IV SCH; -IOHEXOL 350 MG/ML 100 ML (OMNIPAQUE 350) VIAL IV ONE; +MAGN250T13 PO; +METF-865 PO; -METF500T19 PO; -NS 100 ML (IVPB) BAG IV ONE
== END 2019-11-22 11:16 | disposition home or self-care (01) ==
LOC: PREOP 11:15
PROVIDERS: ATTEND Surgery
DX: Z01.818 Encounter for other preprocedural examination (principal)

== ENCOUNTER 2019-11-28 09:13 | Day surgery (SDC) | payer BC, OTHER ==
--- NOTE | 2019-11-16 08:26 | HISTORY AND PHYSICAL ---
DATE OF SERVICE: 11/28/2019 ATTENDING PRIMARY CARE PHYSICIAN: Soledad Romero MD. HISTORY OF PRESENT ILLNESS: The patient is a 59-year-old female known to us. She has had previous history of acute appendicitis and is status post laparoscopic appendectomy on 09/28/2019. She is in need of a screening colonoscopy. She has not had a colonoscopy at this point in her life. She does report a longstanding history of constipation. She does not report any red blood per rectum nor any dark tarry stools and does not report any family history of colon cancer. She also underwent a CT scan and was found to have gallstones; however, she does not report any crampy right upper abdominal quadrant pain after meals as well as no nausea or vomiting at this time. PAST MEDICAL HISTORY: Diabetes, hypertension, hypercholesterolemia, PSVT, degenerative joint disease. PAST SURGICAL HISTORY: Cardiac ablation 02/2019, open completion hysterectomy and right oophorectomy 1996, completion oophorectomy and bladder sling placement 03/2011, bilateral tympanostomy, C5 through C6 ORIF 2015, laparoscopic appendectomy 2010. ALLERGIES: ADHESIVE GLUE AND TAPE. MEDICATIONS: Furosemide, potassium, losartan, metformin, Onglyza, Trulicity, metaxalone, gabapentin, levothyroxine, naproxen. SOCIAL HISTORY: Positive smoke 50 pack years, rare alcohol. FAMILY HISTORY: Mother, myocardial infarction at age 75, stroke at age 73. Father, renal cell cancer. VITAL SIGNS: Stable. Current weight 309.7 pounds at 5 feet 0 inches. REVIEW OF SYSTEMS: Well-nourished female, currently in no acute distress. She is not experiencing any shortness of breath or difficulty breathing. No chest pain, palpitations, diaphoresis. No nausea or vomiting with longstanding history of constipation. No red blood per rectum, no dark tarry stools. No fever or chills, no recent inadvertent weight loss. All other review of systems are negative. PHYSICAL EXAMINATION: CHEST: Distant breath sounds bilaterally. HEART: Regular, no murmurs. EXTREMITIES: A +1/3 bilateral lower extremity edema with early signs of chronic venous insufficiency. Negative Homans sign. HEENT: No scleral icterus or cervical lymphadenopathy. ABDOMEN: Soft, nontender, nondistended. No hernias palpable. SKIN: Warm, dry. ASSESSMENT AND PLAN: A 59-year-old female in need of a screening colonoscopy. The risks and benefits of the procedure were explained to the patient. She is in full understanding and would like to proceed with the procedure, which we will schedule. Job ID: [id number] DocumentID: [id number] Dictated Date: 11/13/2019 16:47:00 Security Systems Sales Representative Date: 11/13/2019 19:47:19 Dictated By: TERRI OTERO MD
[2019-11-28] VITALS (18 sets, daily range): BP systolic 110–167; BP diastolic 57–87
[~2019-11-28] VITALS: Ht 165 cm; Wt 140.0 kg
[2019-11-28] MEDS ORDERED: NS IV 500 ML 500 ML ONE (09:14)
[2019-11-28] MEDS ORDERED: NS IV 500 ML 500 ML IV PRN (09:24)
[2019-11-28] MEDS ORDERED: LIDOCAINE JELLY 2% 6 ML SYRINGE MM PRN (09:30)
[2019-11-28] MEDS ORDERED: fentaNYL INJECTION 100 MCG/2 ML AMP IVP ONE (09:30)
[2019-11-28] MEDS ORDERED: HURRICAINE EXT TUBE (BENZOCAINE) XX PRN (09:30)
[2019-11-28] MEDS ORDERED: LIDOCAINE JELLY 2% 6 ML SYRINGE ONE (10:44)
[2019-11-28] MEDS ORDERED: MIDAZOLAM 5 MG/5 ML (VERSED) VIAL ONE ×3 (10:45→11:22)
[2019-11-28] MEDS ORDERED: fentaNYL INJECTION 100 MCG/2 ML AMP ONE ×3 (10:45→11:02)
--- NOTE | 2019-11-28 10:47 | Conscious Sedation/ASA ---
Conscious Sedation Pre-Proced Time 10:30 ASA Score 2 For ASA 3 and 4: Consider anesthesia and medical clearance. Also, for patients with a history of failed moderate sedation consider anesthesia. Airway Lungs Heart ASA score ASA 1: a normal healthy patient ASA 2: a patient with a mild systemic disease (mid diabetes, controlled hypertension, obesity ASA 3: a patient with a severe systemic disease that limits activity (angina, COPD, prior Myocardial infarction) ASA 4: a patient with an incapacitating disease that is a constant threat to life (CHF, renal failure) ASA 5: a moribund patient not expected to survive 24 hrs. (ruptured aneurysm) ASA 6: a declared brain- patient whose organs are being harvested. For emergent operations, add the letter E after the classification Mallampati Classification Grade 2 Sedation Plan Analgesia, Amnesia, Plan communicated to team members, Discussed options with patient/fam, Discussed risks with patient/fam The patient is an appropriate candidate to undergo the planned procedure, sedation, and anesthesia. The patient immediately re-assessed prior to indication. TERRI OTERO MD Nov 28, 2019 10:47
--- NOTE | 2019-11-28 10:48 | Progress Note-Pre Operative ---
Pre-Operative Progress Note H&P Reviewed The H&P was reviewed, patient examined and no changes noted. Date Seen by Provider: Nov 28, 2019 Time Seen by Provider: 10:30 Date H&P Reviewed: Nov 28, 2019 Time H&P Reviewed: 10:30 Pre-Operative Diagnosis: screening colonoscopy TERRI OTERO MD Nov 28, 2019 10:48
[2019-11-28] MEDS: MIDAZOLAM 5 MG/5 ML (VERSED) VIAL IV PRN ×8 (10:50→11:28)
--- NOTE | 2019-11-28 10:50 | Discharge Inst-Surgical ---
D/C Lap Instructions-BRANDEN Follow Up Activity as tolerated High Fiber Diet 25g or more per day Avoid Alcohol, Caffeine, Spicy [place] and Acid foods. Drink 64 fluid oz or more of fluids per day. Symptoms to Report: Fever over 101 degree F, Nausea/Vomiting If any problems/questions: Contact your physician or go to Emergency Room TERRI OTERO MD Nov 28, 2019 10:50
[2019-11-28] MEDS ORDERED: ONDANSETRON 4 MG/2 ML (SDV) Z0FRAN IVP PRN (11:00)
[2019-11-28] MEDS ORDERED: morphine INJ 10 MG/ML 1ML (SYR OR VIAL) IVP PRN ×2 (11:00)
[2019-11-28] MEDS ORDERED: ACETAMINOPHEN 325 MG TABLET PO PRN (11:00)
[2019-11-28] MEDS ORDERED: HYDROcodone/APAP 5 MG/325 MG (LORTAB) TAB PO PRN (11:00)
--- NOTE | 2019-11-28 11:53 | Progress Note-Post Operative ---
Post-Operative Progess Note Surgeon (s)/Barrel Bung Remover And Dumper (s) Surgeon TERRI OTERO MD Barrel Bung Remover And Dumper: none Pre-Operative Diagnosis screening colonoscopy Post-Operative Diagnosis small polyp rectum(2mm). Procedure & Operative Findings Date of Procedure 11/28/19 Procedure Performed/Findings colonoscopy with bx. Anesthesia Type cs Estimated Blood Loss Estimated blood loss (mL): minimal Specimens/Packing Specimens Removed rectal polyp TERRI OTERO MD Nov 28, 2019 11:53
--- NOTE | 2019-11-28 13:27 | OPERATIVE REPORT ---
DATE OF SERVICE: 11/28/2019 ATTENDING PRIMARY CARE PHYSICIAN: Dr. Romero. PREOPERATIVE DIAGNOSIS: Screening colonoscopy. POSTOPERATIVE DIAGNOSIS: Small polyp of the rectum, 2 mm in size. PROCEDURES PERFORMED: Colonoscopy with biopsy. SURGEON: Terri Otero MD. ANESTHESIA: Conscious sedation. ESTIMATED BLOOD LOSS: Minimal. FINDINGS: Same as postoperative diagnosis. DISPOSITION: The patient tolerated the procedure well. INDICATIONS FOR PROCEDURE: The patient is a 59-year-old female known to us. She has a previous history of appendicitis and status post laparoscopic appendectomy on 09/28/2019. She is in need of a screening colonoscopy. She has not had a colonoscopy up to this point in her life. She reports, for the most part, she is doing well, does not report any red blood per rectum nor any dark tarry stools. She also does not report any family history of colon cancer. DESCRIPTION OF PROCEDURE: The patient was brought to the endoscopy suite and laid in the left lateral decubitus position. After adequate IV pain and sedative medications and conscious sedation anesthesia, a digital rectal examination was performed, which did not reveal any significant hemorrhoids. Normal sphincter tone was felt and there were no palpable masses. The endoscope was then intubated to the anus and the rectum gently insufflated. At the rectum, a small polyp approximately 2 mm in size was identified. This was biopsied and destroyed using forceps and electrocautery with visualization of good hemostasis. The endoscope was then advanced through the sigmoid colon, where no diverticulosis identified. The endoscope was then advanced to the remainder of the descending, transverse and ascending colon to the cecum. These segments were normal. The endoscope was then slowly withdrawn while taking a second look and suctioning of residual air with no additional findings. The patient tolerated the procedure well. We will recommend a high fiber diet with at least 25 grams of fiber daily as well as significant amounts of water to promote soft stools on a daily basis. We will await the pathology results of the polyp and if this is a benign hyperplastic polyp or a tubular adenoma, she may wait 10 years for her next colonoscopy; however, if this has any villous component, we will then recommend a followup colonoscopy in three years. Job ID: [id number] DocumentID: [id number] Dictated Date: 11/28/2019 11:49:42 Exterminator Helper Termite Date: 11/28/2019 13:26:55 Dictated By: TERRI OTERO MD
== END 2019-11-28 12:35 | disposition home or self-care (01) ==
LOC: ENDO 09:13
PROVIDERS: ATTEND Surgery
DX: Z12.11 Encounter for screening for malignant neoplasm of colon (principal); K62.1 Rectal polyp; I10 Essential (primary) hypertension; E11.9 Type 2 diabetes mellitus without complications; E78.00 Pure hypercholesterolemia, unspecified; F17.210 Nicotine dependence, cigarettes, uncomplicated; Z79.899 Other long term (current) drug therapy; Z79.84 Long term (current) use of oral hypoglycemic drugs; Z91.048 Other nonmedicinal substance allergy status; Z90.710 Acquired absence of both cervix and uterus; Z80.51 Family history of malignant neoplasm of kidney
CPT/HCPCS: 88305

== ENCOUNTER → 2020-05-09 | Outpatient (CLI) | payer OTHER ==
[~2020-05-09] VITALS: Ht 165 cm; Wt 140.0 kg
[~2020-05-09] MED LIST changes: +BAMLANIVIMAB (NON FORM) 700 MG in NS (IVPB) 250 ML IV ONE; +EPINEPHrine INJECTION 1 MG/ML AMP IM PRN; +diphenhydrAMINE 50 MG/ML INJ (BENADRYL) IV PRN
[2020-05-09 08:40] VITALS: BP 166/86
[2020-05-09 10:37] VITALS: BP 109/76
== END ==
LOC: INFUSION 08:11
PROVIDERS: ATTEND Nurse Practitioner Family
DX: U07.1 COVID-19 (principal)

== ENCOUNTER → 2021-02-23 | Outpatient (CLI) | payer BC ==
[~2021-02-23] MED LIST changes: -BAMLANIVIMAB (NON FORM) 700 MG in NS (IVPB) 250 ML IV ONE; -EPINEPHrine INJECTION 1 MG/ML AMP IM PRN; -diphenhydrAMINE 50 MG/ML INJ (BENADRYL) IV PRN
--- NOTE | 2021-02-23 08:42 | Diagnostic Imaging Report ---
INDICATION: Routine screening. COMPARISON: 06/21/2019 and 01/18/2017. TECHNIQUE: 2D and 3D bilateral screening mammography was performed with CAD. FINDINGS: Scattered fibroglandular densities are identified bilaterally. There are benign calcifications throughout both breasts. No mass or malignant-appearing microcalcifications are seen. The axillae are unremarkable. IMPRESSION: No mammographic features suspicious for malignancy are identified. ACR BI-RADS Category 2: Benign findings. Result letter will be mailed to the patient. Note: At least 10% of breast cancer is not imaged by mammography. Dictated by: Dictated on workstation # [id number]
== END ==
LOC: RAD 07:45
PROVIDERS: ATTEND Obstetrics & Gynecology
DX: Z12.31 Encounter for screening mammogram for malignant neoplasm of breast (principal)
CPT/HCPCS: 77063; 77067

== ENCOUNTER 2022-08-11 19:14 | Emergency (ER) | payer BC ==
[~2022-08-11] VITALS: Ht 162.5 cm; Wt 125.4 kg
[~2022-08-11 19:14] MED LIST changes: +LEVO-55 PO; -LEVO500T80 PO; -POTA99TA21 PO; +POTA99TA26 PO
[2022-08-11 19:38] VITALS: BP 142/76
--- NOTE | 2022-08-11 20:13 | ED Integumentary General ---
General Chief Complaint: Skin/Wound Problems Stated Complaint: LACERATION TO RIGHT LEG Nursing Triage Note: Patient c/o abrasion to RLE that happened last evening. Patient states she tripped and hit her RLE on the corner of a stool. Patient states she cleaned wound after incident. Patient states she is scheduled to have a epidural done tomorrow and states she wanted to get wound looked at. Patient denies any fevers. Wound to RLE has drk colored scab to center with oozing clear fluid. Source: patient Exam Limitations: no limitations History of Present Illness Date Seen by Provider: Aug 11, 2022 Time Seen by Provider: 19:52 Initial Comments 62-year-old female presents to the ED with concerns of a wound to her right lower leg. She states that she injured her leg Th night when walking in the dark and she hit her leg on a stool. She states she came in today because she is post to get a steroid injection in her spine tomorrow and she is concerned that she has an infection and might need an antibiotic. She reports that she cannot get the injection if she has an infection. Past medical history includes diabetes and hypertension as well as spinal issues due to an injury when she was 19. She denies fevers, states there is drainage from the wound, but states this is due to her lower extremity edema and not being able to take her Lasix because she supposed to have the injection tomorrow. She reports that the skin around the wound is red and warm to touch. Allergies and Home Medications Allergies Coded Allergies: adhesive (Verified Allergy, Severe, BLISTERS CAN TURN INTO RESPIRATORY DISTRESS, 11/22/19) Patient Home Medication List Home Medication List Reviewed: Yes Calcium Carbonate/Vitamin D3 (Caltrate 600 + D Soft Chew Tab) 1 Each Tab.chew, 2 EACH PO DAILY, (Reported) Entered as Reported by: ALEC RODRIGUEZ on 03/29/18 1308 Cyanocobalamin (Vitamin B-12) (Vitamin B12) 2,500 Mcg Tablet, 2,500 MCG PO DAILY, (Reported) Entered as Reported by: MARIN ALICIA on 11/22/19 1108 Dulaglutide (Trulicity) 0.75 Mg/0.5 Ml Pen.injctr, 0.75 MG SQ WEEK, (Reported) Entered as Reported by: MARIN ALICIA on 11/22/19 1108 Fenofibric Acid (Choline) (Fenofibric Acid) 135 Mg Capsule.dr, 135 MG PO Q12H, (Reported) Entered as Reported by: ALEC RODRIGUEZ on 03/29/18 1313 Furosemide (Furosemide) 20 Mg Tablet, 20 MG PO BID, (Reported) Entered as Reported by: ALEC RODRIGUEZ on 03/29/18 130 Gabapentin (Neurontin) 600 Mg Tablet, 600 MG PO BID, (Reported) Entered as Reported by: MARIN ALICIA on 11/22/19 110 Loratadine (Claritin) 10 Mg Tab.rapdis, 10 MG PO DAILY PRN for CONGESTION, (Reported) Entered as Reported by: JESSI DECKER on 04/03/18 0725 Losartan Potassium (Losartan Potassium) 100 Mg Tablet, 100 MG PO HS, (Reported) Entered as Reported by: ALEC RODRIGUEZ on 03/29/18 131 Magnesium Oxide (Magnesium) 250 Mg Tablet, 250 MG PO DAILY, (Reported) Entered as Reported by: MARIN ALICIA on 11/22/19 110 Metaxalone (Metaxalone) 800 Mg Tablet, 800 MG PO BID, (Reported) Entered as Reported by: ALEC RODRIGUEZ on 03/29/18 131 Metformin HCl (Metformin HCl ER) 500 Mg Tab.er.24h, 500 MG PO BID, (Reported) Entered as Reported by: ALEC RODRIGUEZ on 03/29/18 131 Naproxen (Naprosyn) 500 Mg Tablet, 500 MG PO PRN PRN for PAIN-MILD, (Reported) Entered as Reported by: JESSI DECKER on 04/03/18 0715 Potassium Gluconate (Potassium) 99 Mg Tablet, 99 MG PO BID, (Reported) Entered as Reported by: ALEC RODRIGUEZ on 03/29/18 1308 Ubidecarenone (Co Q-10) 200 Mg Capsule, 200 MG PO HS, (Reported) Entered as Reported by: ALEC RODRIGUEZ on 03/29/18 1313 [vitafusion] , 2 EA PO HS, (Reported) Entered as Reported by: ALEC RODRIGUEZ on 03/29/18 1308 Review of Systems Review of Systems Constitutional: no symptoms reported Skin: other (Wound to right lower leg, warmth, redness) Past Xdyvznb-Pwyfrd-Cmfhxm Hx Patient Social History Tobacco Use?: Yes Tobacco type used: Cigarettes Use of E-Cig and/or Vaping dev: No Substance use?: No Alcohol Use?: No Pt feels they are or have been: No Immunizations Up To Date Tetanus Booster (TDap): Unknown Influenza Vaccine Up-to-Date: Yes; Up-to-Date Seasonal Allergies Seasonal Allergies: Yes Past Medical History Surgery/Hospitalization HX: DM Surgeries: Yes (bilat CTR, back sx, several BMT's, LEG FX, BLADDER, CARDIAC ABLATION X2) Appendectomy, Hysterectomy, Tonsillectomy Respiratory: Yes Asthma, COPD Cardiac: Yes (PSVT) Hypertension Neurological: No Reproductive Disorders: No Sexually Transmitted Disease: No HIV/AIDS: No Genitourinary: No Gastrointestinal: Yes (GALLSTONES) Chronic Constipation, Gall Bladder Disease Musculoskeletal: Yes (CHRONIC NECK PAIN, BULGING DISC) Degenerate Disk Disease, Arthritis, Chronic Back Pain Endocrine: Yes Diabetes, Non-Insulin dep HEENT: Yes (READING GLASSES) Loss of Vision: Denies Hearing Impairment: Denies Cancer: No Psychosocial: No Integumentary: No Blood Disorders: No Adverse Reaction/Blood Tranf: No (N/A) Family Medical History No Pertinent Family Hx Physical Exam Vital Signs Vital Signs - First Documented 08/11/22 19:38 Temp 36.8 Pulse 74 Resp 14 B/P (MAP) 142/76 (98) Pulse Ox 94 O2 Delivery Room Air Capillary Refill : Progress/Results/Core Measures Results/Orders Vital Signs/I&O 08/11/22 19:38 Temp 36.8 Pulse 74 Resp 14 B/P (MAP) 142/76 (98) Pulse Ox 94 O2 Delivery Room Air Blood Pressure Mean: 98 Progress Progress Note : Time: 20:14 Progress Note Patient seen and evaluated, resting comfortably in chair, no acute distress. Based on exam and symptoms, concern for cellulitis around site of wound. Will discharge with prescription for Keflex. Discharge structures and return precautions provided. Departure Impression Primary Impression: Cellulitis Disposition: 01 HOME, SELF-CARE Condition: Stable Departure-Patient Inst. Decision time for Depature: 20:15 Referrals: CINDY VIDES MD (PCP/Family) Primary Care Physician Patient Instructions: Cellulitis (Skin Infection), Adult (DC) Add. Discharge Instructions: Complete full course of antibiotic as directed. Follow-up with your primary care provider if the wound is not healing. Return for fever, increase of the redness, odorous discolored drainage from the wound, or any other new, concerning, or worsening symptoms. All discharge instructions reviewed with patient and/or family. Voiced understanding. Scripts Cephalexin (Cephalexin) 500 Mg Tablet 500 MG PO QID for 7 Days, #28 TAB 0 Refills Prov: PRABHAKAR BALLESTEROS APRN 08/11/22 PRABHAKAR BALLESTEROS APRN Aug 11, 2022 20:13
[2022-08-11] MEDS ORDERED: CEPH500T PO (20:16)
[2022-08-11] MEDS ORDERED: CEPHALEXIN 250 MG (KEFLEX) CAP PO ONE (20:30)
== END 2022-08-11 20:33 | disposition home or self-care (01) ==
LOC: EDUNIT# 19:14 → ER 19:16
DX: L03.115 Cellulitis of right lower limb (principal); F17.210 Nicotine dependence, cigarettes, uncomplicated; W18.40XA Slipping, tripping and stumbling without falling, unspecified, initial encounter; W22.8XXA Striking against or struck by other objects, initial encounter; Y93.01 Activity, walking, marching and hiking
CPT/HCPCS: 99283